=== PATIENT | male | born 1955 | race African-American/Black ===

== ENCOUNTER 2016-07-23 13:50 | Outpatient (CLI) | payer MEDICARE, MEDICAID | END 2016-07-23 13:51 | disposition home or self-care (01) | DX: N39.0 Urinary tract infection, site not specified (principal) ==

== ENCOUNTER 2016-08-06 15:17 | Inpatient (IN) | payer MEDICARE, MEDICAID ==
[2016-08-06] MEDS ORDERED: ALBUTEROL NEB 2.5 MG/3 ML INH STA (16:17)
[2016-08-06] MEDS ORDERED: ALBUTEROL NEB 2.5 MG/3 ML INH ONE (16:35)
[2016-08-06] MEDS ORDERED: cefTRIAXone 1 GM in SODIUM CHLORIDE 0.9% MINIBAG 100 ML IV STA (17:52)
[2016-08-06] MEDS ORDERED: AZITHROMYCIN INJ 500 MG in SODIUM CHLORIDE 0.9% 250 ML IV STA (17:52)
[2016-08-06] MEDS ORDERED: cefTRIAXone 1 GM VIAL ONE (18:38)
[2016-08-06] MEDS ORDERED: SODIUM CHLORIDE FLUSH 0.9% 10 ML SYRINGE IVP PRN (18:50)
[2016-08-06] MEDS ORDERED: ACETAMINOPHEN 325 MG TABLET PO PRN (18:50)
[2016-08-06] MEDS ORDERED: ONDANSETRON 4 MG/2 ML VIAL IVP PRN (18:50)
[2016-08-06] MEDS ORDERED: LORazepam 2 MG/ML SYRINGE IVP STA (19:17)
[2016-08-06] MEDS ORDERED: LORazepam 2 MG/ML SYRINGE ONE (19:21)
[2016-08-06] MEDS ORDERED: SODIUM CHLORIDE 0.9% MINIBAG 100 ML IV ONE (19:26)
[2016-08-06] MEDS ORDERED: NAPROXEN 250 MG TABLET PO PRN (20:07)
[2016-08-06] MEDS ORDERED: MAG HYDROX/AL HYDROX/SIMETH 30 ML UDC PO PRN (20:07)
[2016-08-06] MEDS ORDERED: LORazepam 2 MG/ML SYRINGE IVP PRN (20:07)
[2016-08-06] MEDS ORDERED: oxyCOD/ACETAMIN 5 MG/325 MG TABLET PO PRN (20:07)
[2016-08-06] MEDS ORDERED: guaiFENesin 600 MG TABLET PO PRN (20:07)
[2016-08-06] MEDS ORDERED: LORATADINE 10 MG TABLET PO PRN (20:07)
[2016-08-06] MEDS ORDERED: POLYETHYLENE GLYCOL 3350 17 GM PACKET PO SCH (21:00)
[2016-08-06] MEDS ORDERED: ALBUTEROL NEB 2.5 MG/3 ML INH PRN (21:44)
[2016-08-06] MEDS: SODIUM CHLORIDE FLUSH 0.9% 10 ML SYRINGE IVP SCH (22:01)
[2016-08-06] MEDS: NICOTINE 14 MG PATCH TOP SCH (22:01)
[2016-08-07] MEDS: FLUoxetine 10 MG CAPSULE PO SCH (06:54)
[2016-08-07] MEDS: TAMSULOSIN 0.4 MG CAPSULE PO SCH (06:54)
[2016-08-07] MEDS: PHENYTOIN ER 100 MG CAPSULE PO SCH ×2 (06:54→18:02)
[2016-08-07] MEDS: DIVALPROEX DR 250 MG TABLET PO SCH ×2 (06:58→18:03)
[2016-08-07] MEDS: SACCHAROMYCES BOULARDII 250 MG CAPSULE PO SCH ×2 (08:59→18:02)
[2016-08-07] MEDS: NICOTINE 14 MG PATCH TOP SCH (09:00)
[2016-08-07] MEDS ORDERED: NON FORMULARY MED (Amlodipine Besylate [Amlodipine Besylate] 10 MG) PO SCH (09:00)
[2016-08-07] MEDS: ASPIRIN EC 81 MG TABLET PO SCH (09:00)
[2016-08-07] MEDS: cefTRIAXone 2 GM in SODIUM CHLORIDE 0.9% MINIBAG 100 ML IV SCH (09:00)
[2016-08-07] MEDS: POLYETHYLENE GLYCOL 3350 17 GM PACKET PO SCH (10:17)
[2016-08-07] MEDS: SODIUM CHLORIDE FLUSH 0.9% 10 ML SYRINGE IVP SCH ×3 (14:20→21:40)
[2016-08-07] MEDS ORDERED: ATENOLOL 25 MG TABLET PO SCH (18:00)
[2016-08-07] MEDS: AZITHROMYCIN INJ 500 MG in SODIUM CHLORIDE 0.9% 250 ML IV SCH (18:01)
[2016-08-07] MEDS: OLANZapine ODT 5 MG TABLET TL SCH (18:02)
[2016-08-07] MEDS: MULTIVITAMIN TABLET PO SCH (18:02)
[2016-08-07] MEDS: ATENOLOL 25 MG TABLET PO SCH (18:10)
[2016-08-08] MEDS: PHENYTOIN ER 100 MG CAPSULE PO SCH ×2 (05:41→18:24)
[2016-08-08] MEDS: FLUoxetine 10 MG CAPSULE PO SCH (05:41)
[2016-08-08] MEDS: TAMSULOSIN 0.4 MG CAPSULE PO SCH (05:41)
[2016-08-08] MEDS: DIVALPROEX DR 250 MG TABLET PO SCH ×2 (05:42→18:24)
[2016-08-08] MEDS ORDERED: DIVALPROEX DR 125 MG TABLET PO ONE (05:42)
[2016-08-08] MEDS: SODIUM CHLORIDE FLUSH 0.9% 10 ML SYRINGE IVP SCH ×3 (06:53→20:59)
[2016-08-08] MEDS: SENNA 8.6 MG TABLET PO SCH (09:13)
[2016-08-08] MEDS: SACCHAROMYCES BOULARDII 250 MG CAPSULE PO SCH ×2 (09:14→16:33)
[2016-08-08] MEDS: ASPIRIN EC 81 MG TABLET PO SCH (09:14)
[2016-08-08] MEDS: NICOTINE 14 MG PATCH TOP SCH (09:14)
[2016-08-08] MEDS: POLYETHYLENE GLYCOL 3350 17 GM PACKET PO SCH (09:14)
[2016-08-08] MEDS: DOCUSATE SODIUM 250 MG CAPSULE PO SCH (09:14)
[2016-08-08] MEDS: cefTRIAXone 2 GM in SODIUM CHLORIDE 0.9% MINIBAG 100 ML IV SCH (09:15)
[2016-08-08] MEDS ORDERED: MAGNESIUM HYDROXIDE 2,400 MG/30 ML UDC PO ONE (16:00)
[2016-08-08] MEDS: OLANZapine ODT 5 MG TABLET TL SCH (18:24)
[2016-08-08] MEDS: MULTIVITAMIN TABLET PO SCH (18:25)
[2016-08-08] MEDS: AZITHROMYCIN INJ 500 MG in SODIUM CHLORIDE 0.9% 250 ML IV SCH (18:25)
[2016-08-08] MEDS: ATENOLOL 25 MG TABLET PO SCH (18:28)
[2016-08-09] MEDS: FLUoxetine 10 MG CAPSULE PO SCH (06:10)
[2016-08-09] MEDS: TAMSULOSIN 0.4 MG CAPSULE PO SCH (06:10)
[2016-08-09] MEDS: PHENYTOIN ER 100 MG CAPSULE PO SCH (06:11)
[2016-08-09] MEDS: SODIUM CHLORIDE FLUSH 0.9% 10 ML SYRINGE IVP SCH (06:11)
[2016-08-09] MEDS: DIVALPROEX DR 250 MG TABLET PO SCH (06:11)
[2016-08-09] MEDS: POLYETHYLENE GLYCOL 3350 17 GM PACKET PO SCH (09:54)
[2016-08-09] MEDS: DOCUSATE SODIUM 250 MG CAPSULE PO SCH (09:54)
[2016-08-09] MEDS: cefTRIAXone 2 GM in SODIUM CHLORIDE 0.9% MINIBAG 100 ML IV SCH (09:54)
[2016-08-09] MEDS: NICOTINE 14 MG PATCH TOP SCH (09:54)
[2016-08-09] MEDS: SACCHAROMYCES BOULARDII 250 MG CAPSULE PO SCH (09:54)
[2016-08-09] MEDS: ASPIRIN EC 81 MG TABLET PO SCH (09:54)
[2016-08-09] MEDS: SENNA 8.6 MG TABLET PO SCH (10:02)
== END 2016-08-09 13:45 | disposition home or self-care (01) | DRG 193 ==
DX: J18.9 Pneumonia, unspecified organism (principal); R09.02 Hypoxemia; J45.909 Unspecified asthma, uncomplicated; J96.01 Acute respiratory failure with hypoxia; J45.901 Unspecified asthma with (acute) exacerbation; F31.9 Bipolar disorder, unspecified; F20.9 Schizophrenia, unspecified; F41.9 Anxiety disorder, unspecified; Z87.820 Personal history of traumatic brain injury; F20.1 Disorganized schizophrenia; F17.200 Nicotine dependence, unspecified, uncomplicated; G40.909 Epilepsy, unspecified, not intractable, without status epilepticus; I10 Essential (primary) hypertension; F07.81 Postconcussional syndrome; F41.8 Other specified anxiety disorders; Z72.0 Tobacco use; Z79.82 Long term (current) use of aspirin

== ENCOUNTER 2016-11-06 08:00 | Outpatient (CLI) | payer MEDICARE, MEDICAID | END 2016-11-06 23:59 | disposition home or self-care (01) | DX: K52.9 Noninfective gastroenteritis and colitis, unspecified (principal) ==

== ENCOUNTER 2017-04-27 10:24 | Inpatient (IN) | payer MEDICARE, MEDICAID ==
[2017-04-27 11:38] LABS: BASOPHILS # (AUTO) 0.1 10^3/uL (0.0-0.1); BASOPHILS % (AUTO) 0.5 %; HGB - HEMOGLOBIN 16.1 g/dL (14.0-18.0); LYMPHOCYTES # (AUTO) 3.6 10^3/uL (1.5-3.5); LYMPHOCYTES % (AUTO) 25.2 %; MEAN CORPUSCULAR HEMOGLOBIN 32.4 pg (27.0-31.0); MEAN CORPUSCULAR HGB CONC 33.6 g/dL (32.0-36.0); MEAN CORPUSCULAR VOLUME 96.4 fL (80.0-94.0); MEAN PLATELET VOLUME 9.1 fL (7.4-11.4); MONOCYTES # (AUTO) 1.6 10^3/uL (0.0-1.0); MONOCYTES % (AUTO) 11.1 %; NEUTROPHILS % (AUTO) 63.2 %; NUCLEATED RED BLOOD CELLS AUTO 0.1 /100WBC; RED BLOOD COUNT 4.97 10^6/uL (4.70-6.10); RED CELL DISTRIBUTION WIDTH 16.3 % (12.0-15.0); UNCORRECTED WHITE BLOOD COUNT 14.2 x10^3/uL; WHITE BLOOD COUNT 14.2 x10^3/uL (4.8-10.8)
--- NOTE | 2017-04-27 12:00 | ED Physician Documentation ---
PD HPI NVD - Stated complaint Stated Complaint: VOMITING - Chief complaint Chief Complaint: Abd Pain - History obtained from History obtained from: Patient - History of Present Illness Timing - duration: Days (several days) Associated symptoms: Abdominal pain (upper) Contributing factors: Other (lives in assisted living/care home and meds taken care of by [facility]. Patient does not drink alcohol.). No: Sick contact, Bad food, Travel, Recent antibiotics Improved by: Laying still. No: Eating, Vomiting Worsened by: Eating, Position, Palpation. No: Breathing Similar symptoms before: Has not had sx before Recently seen: Not recently seen Review of Systems Constitutional: denies: Fever, Myalgias Eyes: reports: Loss of vision (chronic) Nose: denies: Rhinorrhea / runny nose, Congestion Throat: denies: Sore throat Cardiac: reports: Pedal edema (mild chronic). denies: Chest pain / pressure, Palpitations, Calf pain Respiratory: denies: Cough GI: reports: Abdominal Pain (upper abd), Nausea, Vomiting (few times), Diarrhea : denies: Dysuria, Frequency Skin: denies: Rash Musculoskeletal: denies: Neck pain, Back pain Neurologic: reports: Generalized weakness. denies: Focal weakness, Numbness, Near syncope, Altered mental status, Headache Endocrine: denies: Weight loss, Easy bruising / bleeding Immunocompromised: denies: Immunocompromised PD PAST MEDICAL HISTORY - Past Medical History Past Medical History: Yes Cardiovascular: Hypertension Respiratory: Asthma Neuro: Seizure disorder Endocrine/Autoimmune: Other HEENT: Chronic vision loss Psych: Depression, Anxiety, Bipolar disorder, Schizophrenia Musculoskeletal: Osteoarthritis - Past Surgical History Past Surgical History: Yes General: Colonoscopy HEENT: Cataracts - Present Medications Home Medications: Ambulatory Orders Medication Instructions Recorded Confirmed Amlodipine Besylate 10 mg PO 0600 02/21/14 04/27/17 Atenolol 25 mg PO 1800 02/21/14 04/27/17 FLUoxetine [PROzac] 20 mg PO 0600 02/21/14 04/27/17 OLANZapine [ZyPREXA] 15 mg PO 1800 02/21/14 04/27/17 Alum-Mag Hydroxide [Mylanta] 30 ml PO Q4H PRN 05/22/16 04/27/17 Guaifenesin [Mucinex] 600 mg PO BID PRN 05/22/16 04/27/17 Loperamide [Imodium] 2 mg PO QID PRN 05/22/16 04/27/17 Multivitamin [Multiple Vitamins] 1 tab PO 1800 05/22/16 04/27/17 Tamsulosin [Flomax] 0.4 mg PO 0600 05/22/16 04/27/17 Divalproex [Arianna Bolton] 1,750 mg PO 1800 06/04/16 04/27/17 Divalproex [Arianna Bolton] 2,000 mg PO 0600 06/04/16 04/27/17 Loratadine [Claritin] 10 mg PO DAILY PRN 06/04/16 04/27/17 Acetaminophen 1 tab PO BID PRN 07/08/16 04/27/17 Aspirin [Aspir-Low] 81 mg PO DAILY 07/08/16 04/27/17 Phenytoin [Dilantin] 100 mg PO 1800 07/08/16 04/27/17 Polyethylene Glycol 3350 [Miralax] 17 gm PO DAILY PRN 07/08/16 04/27/17 Phenytoin [Dilantin] 200 mg PO 0600 08/06/16 04/27/17 - Allergies Allergies/Adverse Reactions: Allergies Allergy/AdvReac Type Severity Reaction Status Date / Time No Known Drug Allergies Allergy Verified 04/27/17 12:17 - Living Situation Living Situation: reports: Alone Living Arrangement: reports: Assisted living - Social History Does the pt smoke?: Yes Smoking Status: Current every day smoker Does the pt drink ETOH?: No Does the pt have substance abuse?: No - Family History Family history: reports: Non contributory - POLST Patient has POLST: No PD ED PE NORMAL - Vitals Vital signs reviewed: Yes - General General: Alert and oriented X 3, Well developed/nourished - HEENT HEENT: Ears normal, Pharynx benign, 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 No: PERRL - Neck Neck: Supple, no meningeal sign, No adenopathy - Cardiac Cardiac: RRR, No murmur - Respiratory Respiratory: No respiratory distress, Clear bilaterally - Abdomen Abdomen: Normal bowel sounds, Soft, No organomegaly, Other (mildly distended with tenderness upper abdomen/epigastric in particular. Increased bowel sounds. ) - Male Male : Deferred - Rectal Rectal: Deferred - Back Back: No CVA TTP - Derm Derm: Normal color, Warm and dry - Extremities Extremities: No deformity, No tenderness to palpate, Other (1+ edema in both legs without tenderness. ) - Neuro Neuro: Alert and oriented X 3, No motor deficit, Normal speech Results - Vitals Vitals: Vital Signs - 24 hr 04/27/17 10:35 Temperature 36.4 C L Heart Rate 120 H Respiratory 16 Rate Blood Pressure 150/51 H O2 Saturation 97 Oxygen O2 Source [With Activity] Room air O2 Source [Without Activity] Room air O2 Source Room air - Labs Labs: Laboratory Tests 04/27/17 04/27/17 04/27/17 10:48 11:26 11:26 WBC 14.2 H RBC 4.97 Hgb 16.1 Hct 48.0 MCV 96.4 H MCH 32.4 H MCHC 33.6 RDW 16.3 H Plt Count 167 MPV 9.1 Neut # 9.0 H Lymph # 3.6 H [place] # 1.6 H Eos # 0.0 Baso # 0.1 Absolute Nucleated RBC 0.01 Nucleated RBC % 0.1 Sodium 135 Potassium 4.2 Chloride 101 Carbon Dioxide 23 Anion Gap 11.0 BUN 25 H Creatinine 1.3 H Estimated GFR (MDRD) 68 L Glucose 178 H Calcium 9.0 Magnesium Total Bilirubin 0.7 AST 40 ALT 24 Alkaline Phosphatase 83 Total Protein 8.4 H Albumin 3.9 Globulin 4.5 H Albumin/Globulin Ratio 0.9 L Lipase 720 H Urine Color DARK YELLOW Urine Clarity CLEAR Urine pH 6.0 Ur Specific [place] 1.015 Urine Protein TRACE Urine Glucose (UA) NEGATIVE Urine Ketones NEGATIVE Urine Occult Blood NEGATIVE Urine Nitrite NEGATIVE Urine Bilirubin NEGATIVE Urine Urobilinogen 0.2 (NORMAL) Ur Leukocyte Esterase NEGATIVE Ur Microscopic Review NOT INDICATED Urine Culture Comments NOT INDICATED Last Dose Date Last Dose Time Phenytoin Valproic Acid 04/27/17 11:26 WBC RBC Hgb Hct MCV MCH MCHC RDW Plt Count MPV Neut # Lymph # [place] # Eos # Baso # Absolute Nucleated RBC Nucleated RBC % Sodium Potassium Chloride Carbon Dioxide Anion Gap BUN Creatinine Estimated GFR (MDRD) Glucose Calcium Magnesium 2.5 Total Bilirubin AST ALT Alkaline Phosphatase Total Protein Albumin Globulin Albumin/Globulin Ratio Lipase Urine Color Urine Clarity Urine pH Ur Specific [place] Urine Protein Urine Glucose (UA) Urine Ketones Urine Occult Blood Urine Nitrite Urine Bilirubin Urine Urobilinogen Ur Leukocyte Esterase Ur Microscopic Review Urine Culture Comments Last Dose Date UNK Last Dose Time UNK Phenytoin 7.5 Valproic Acid 125.8 - Rads (name of study) abd/pelvis CT Radiology: Prelim report reviewed (pancreatitis with large pseudocyst 4.8 cm. normal gallbladder), EMP read contemporaneously PD MEDICAL DECISION MAKING - ED course Complexity details: reviewed results (Depakote level is elevated. Dilantin level is okay. Could contribute to the nausea. Has elevated Lipase and has pseudocyst, no alcohol use and GB looks okay. Presume med related and Depakote does have pancreatitis as listed side effect. ), considered differential, d/w patient Departure - Departure Disposition: [facility] DC/Xfer Clinical Impression: Seizure disorder Pancreatitis Qualifiers: Chronicity: acute Pancreatitis type: drug induced Acute pancreatitis complication: unspecified Qualified Code(s): K85.30 - Drug induced acute pancreatitis without necrosis or infection Abdominal pain Qualifiers: Abdominal location: upper abdomen, unspecified Qualified Code(s): R10.10 - Upper abdominal pain, unspecified Vomiting Qualifiers: Vomiting type: unspecified Vomiting Intractability: non-intractable Nausea presence: with nausea Qualified Code(s): R11.2 - Nausea with vomiting, unspecified Condition: Stable Record reviewed to determine appropriate education?: Yes Discharge Date/Time: 04/27/17 15:20
[2017-04-27] MEDS ORDERED: SODIUM CHLORIDE 0.9% 1,000 ML IV ONE ×2 (12:12→14:20)
[2017-04-27] MEDS ORDERED: ONDANSETRON 4 MG/2 ML VIAL IVP STA (12:12)
[2017-04-27] MEDS ORDERED: MORPHINE 10 MG/ML VIAL IVP STA (12:14)
[2017-04-27 12:19] LABS: ALBUMIN/GLOBULIN RATIO 0.9 (1.0-2.2); BILIRUBIN,TOTAL 0.7 mg/dL (0.2-1.0); CREATININE 1.3 mg/dL (0.6-1.2); POTASSIUM 4.2 mmol/L (3.5-5.0); TOTAL PROTEIN 8.4 g/dL (6.7-8.2)
[2017-04-27 12:32] LABS: MAGNESIUM 2.5 mg/dL (1.7-2.8)
[2017-04-27] MEDS ORDERED: MORPHINE 10 MG/ML VIAL ONE (12:34)
[2017-04-27] MEDS ORDERED: ONDANSETRON 4 MG/2 ML VIAL ONE (12:34)
[2017-04-27] MEDS ORDERED: SODIUM CHLORIDE FLUSH 0.9% 10 ML SYRINGE IVP ONE (12:34)
[2017-04-27] MEDS ORDERED: IOPAMIDOL-300 100 ML VIAL ONE (13:10)
[2017-04-27] MEDS ORDERED: IOPAMIDOL-300 100 ML VIAL IVP ONE (13:20)
--- NOTE | 2017-04-27 13:49 | CT Preliminary Report ---
Exam: CT Abdomen/Pelvis W/ IMPRESSION: 1. Findings suspicious for acute pancreatitis. 2. 4.8 cm round pancreatic head lesion is most suspicious for a intrapancreatic pseudocyst or complex cyst. Follow-up recommended to exclude cystic neoplasm. 3. Small intraperitoneal free fluid. 4. Increased small bowel gas consistent with ileus. 5. Dependent pulmonary atelectasis. [facility] SITE ID: [id number]
--- NOTE | 2017-04-27 13:52 | CT Report ---
EXAM: CT ABDOMEN AND PELVIS EXAM DATE: 04/27/2017 01:30 PM. CLINICAL HISTORY: Abd bloating/pain and vomiting. COMPARISONS: None. TECHNIQUE: Routine helical CT imaging was performed through the abdomen and pelvis. IV contrast: 100 cc Isovue-300 IV. Enteric contrast: No. Reconstructions: Coronal and sagittal. In accordance with CT protocol optimization, one or more of the following dose reduction techniques w ere utilized for this exam: automated exposure control, adjustment of mA and/or KV based on patient s ize, or use of iterative reconstructive technique. FINDINGS: Lung Bases: There is patchy airspace density with volume loss in the right greater than left lower lo be. No pleural effusion. Liver: Normal. No masses. Gallbladder/Bile Ducts: Unremarkable. Spleen: Normal. Pancreas: The pancreas appears diffusely edematous. There is a hypodense circumscribed lesion located within the inferior pancreatic head measuring 4.5 x 4.7 x 4.8 cm and density of 19 Hounsfield units. There is peripancreatic stranding and edema. Adrenal Glands: Normal. Kidneys: There is a small hypodense lesion in the midpole cortex left kidney measuring 1 cm consisten t with a cyst. No hydronephrosis. Peritoneal Cavity/Bowel: There is a small volume of free fluid in the right upper quadrant of the abd omen. There is generalized increased density of mesenteric fat in the upper and lower abdomen. No miguel e air. No high-grade mechanical bowel obstruction. There is increased small bowel gas. Pelvic Organs: Normal. The bladder and visualized pelvic organs are within normal limits. Vasculature: No aneurysms or other significant abnormality. Bones: There are findings of left hip arthroplasty. Other: None. IMPRESSION: 1. Findings suspicious for acute pancreatitis. 2. 4.8 cm round pancreatic head lesion is most suspicious for a intrapancreatic pseudocyst or complex cyst. Follow-up recommended to exclude cystic neoplasm. 3. Small intraperitoneal free fluid. 4. Increased small bowel gas consistent with ileus. 5. Dependent pulmonary atelectasis. [facility] Referring Provider Line: [phone] SITE ID: [id number]
[2017-04-27] MEDS ORDERED: HYDROmorphone 1 MG/ML CARPUJECT IVP STA (14:20)
[2017-04-27] MEDS ORDERED: HYDROmorphone 1 MG/ML AMP IVP PRN (14:31)
[2017-04-27] MEDS ORDERED: HYDROmorphone 1 MG/ML SYRINGE ONE (14:38)
[2017-04-27] MEDS ORDERED: SODIUM CHLORIDE 0.9% 1,000 ML IV SCH ×2 (15:00→19:48)
[2017-04-27 16:36] LABS: BILIRUBIN,URINE NEGATIVE (NEGATIVE)
[2017-04-27 16:37] LABS: UA CHARGE (STRIP ONLY) YES; UR CULTURE IF IND NOT INDICATED
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
[2017-04-27] MEDS: OLANZapine ODT 5 MG TABLET TL SCH (19:13)
[2017-04-27] MEDS: PHENYTOIN ER 100 MG CAPSULE PO SCH (19:14)
[2017-04-27] MEDS: DIVALPROEX DR 250 MG TABLET PO SCH (19:14)
[2017-04-27] MEDS: SODIUM CHLORIDE FLUSH 0.9% 10 ML SYRINGE IVP SCH (23:06)
[2017-04-27] MEDS: NICOTINE 14 MG PATCH TOP SCH (23:06)
[2017-04-28] MEDS ORDERED: cefTRIAXone 1 GM in SODIUM CHLORIDE 0.9% MINIBAG 100 ML IV SCH (01:00)
[2017-04-28 01:07] LABS: HCT - HEMATOCRIT 38.5 % (42.0-52.0); HGB - HEMOGLOBIN 12.9 g/dL (14.0-18.0); MEAN CORPUSCULAR HEMOGLOBIN 31.9 pg (27.0-31.0); MEAN CORPUSCULAR HGB CONC 33.6 g/dL (32.0-36.0); MEAN PLATELET VOLUME 9.2 fL (7.4-11.4); RED BLOOD COUNT 4.05 10^6/uL (4.70-6.10); RED CELL DISTRIBUTION WIDTH 15.6 % (12.0-15.0); WHITE BLOOD COUNT 17.9 x10^3/uL (4.8-10.8)
[2017-04-28] MEDS: ACETAMINOPHEN 325 MG TABLET PO PRN ×2 (01:14→16:15)
[2017-04-28] MEDS: SODIUM CHLORIDE 0.9% 1,000 ML IV SCH ×3 (01:15→19:02)
[2017-04-28 01:21] LABS: ALBUMIN/GLOBULIN RATIO 0.8 (1.0-2.2); BUN - BLOOD UREA NITROGEN 18 mg/dL (6-20); CALCIUM 7.5 mg/dL (8.5-10.3); CARBON DIOXIDE - CO2 22 mmol/L (21-32); CHLORIDE 107 mmol/L (101-111); CHOL/HDL RATIO 2.8 (<5.0); CHOLESTEROL 119 mg/dL; CREATININE 0.7 mg/dL (0.6-1.2); GFR - MDRD 139 (>89); GLUCOSE 160 mg/dL (70-100); HDL CHOLESTEROL 43 mg/dL; LDL/HDL RATIO 1.5 (<3.6); LIPASE 154 U/L (22-51); POTASSIUM 3.8 mmol/L (3.5-5.0); SODIUM 137 mmol/L (135-145); TRIGLYCERIDES 53 mg/dL; VLDL CHOLESTEROL 11 mg/dL
[2017-04-28 01:25] LABS: AMYLASE 586 U/L (28-100)
[2017-04-28] MEDS: SODIUM CHLORIDE FLUSH 0.9% 10 ML SYRINGE IVP PRN ×2 (01:29→12:47)
[2017-04-28] MEDS: FLUoxetine 10 MG CAPSULE PO SCH (05:24)
[2017-04-28] MEDS: SODIUM CHLORIDE FLUSH 0.9% 10 ML SYRINGE IVP SCH ×3 (05:29→19:07)
[2017-04-28] MEDS ORDERED: CALCIUM GLUCONATE 1,000 MG in SODIUM CHLORIDE 0.9% 50 ML IV ONE (07:35)
[2017-04-28] MEDS ORDERED: LOPERAMIDE 2 MG CAPSULE PO PRN (08:35)
[2017-04-28] MEDS ORDERED: guaiFENesin 600 MG TABLET PO PRN (08:35)
[2017-04-28] MEDS ORDERED: MAG HYDROX/AL HYDROX/SIMETH 30 ML UDC PO PRN (08:35)
[2017-04-28] MEDS ORDERED: LORATADINE 10 MG TABLET PO PRN (08:35)
[2017-04-28] MEDS ORDERED: cloNIDine 0.1 MG TABLET PO PRN (08:38)
[2017-04-28] MEDS: POLYETHYLENE GLYCOL 3350 17 GM PACKET PO SCH (09:09)
[2017-04-28] MEDS ORDERED: DIVALPROEX ER 250 MG TABLET PO ONE (09:15)
[2017-04-28] MEDS ORDERED: cloNIDine 0.1 MG TABLET ONE (09:16)
[2017-04-28] MEDS: DIVALPROEX DR 250 MG TABLET PO SCH ×3 (09:27→18:55)
[2017-04-28] MEDS: ENOXAPARIN 40 MG/0.4 ML SYRINGE SUBQ SCH (09:28)
[2017-04-28] MEDS: PHENYTOIN ER 100 MG CAPSULE PO SCH ×3 (09:28→19:01)
[2017-04-28] MEDS: ASPIRIN EC 81 MG TABLET PO SCH (09:28)
[2017-04-28] MEDS: NICOTINE 14 MG PATCH TOP SCH (09:29)
[2017-04-28] MEDS: PIPERACILLIN/TAZOBACTAM 3.375 GM in SODIUM CHLORIDE 0.9% MINIBAG 100 ML IV SCH ×3 (10:39→19:06)
[2017-04-28] MEDS ORDERED: hydrALAZINE INJ 20 MG/ML VIAL IVP PRN (12:43)
--- NOTE | 2017-04-28 12:47 | PROVIDER PROGRESS NOTE ---
Subjective - Prog Note Date Prog Note Date: 04/28/17 - Subjective Pt reports feeling: Improved Subjective: pt report feeling better, and comfortable sleeping at the bed, denies chest pain , other pain. Current Medications - Current Medications Current Medications: Active Medications Acetaminophen (Tylenol) 650 mg PO Q4HR PRN PRN Reason: Pain or Fever > 38C (100.4F) Last Admin: 04/28/17 01:14 Dose: 650 mg Al Hydroxide/Mg Hydroxide (Mylanta Plus) 30 ml PO Q4H PRN PRN Reason: NEEDED PER PROVIDER ORDERS Amlodipine Besylate (Norvasc) 10 mg PO 0600 [facility] Aspirin (Ecotrin) 81 mg PO DAILY [facility] Last Admin: 04/28/17 09:28 Dose: 81 mg Atenolol (Tenormin) 25 mg PO 1800 [facility] Clonidine HCl (Catapres) 0.1 mg PO BID PRN PRN Reason: Hypertensive Emergency Last Admin: 04/28/17 09:28 Dose: 0.1 mg Divalproex Sodium (Depakote Dr) 1,750 mg PO 1800 [facility] Last Admin: 04/27/17 19:14 Dose: 1,750 mg Divalproex Sodium (Depakote Dr) 2,000 mg PO DAILY [facility] Last Admin: 04/28/17 10:39 Dose: Not Given Enoxaparin Sodium (Lovenox) 40 mg SUBQ DAILY [facility] Last Admin: 04/28/17 09:28 Dose: 40 mg Fluoxetine HCl (Prozac) 20 mg PO 0600 [facility] Last Admin: 04/28/17 05:24 Dose: 20 mg Guaifenesin (Mucinex) 600 mg PO BID PRN PRN Reason: CONGESTION Hydromorphone HCl (Dilaudid) 0.5 mg IVP Q2HR PRN PRN Reason: Pain 8 to 10 Last Admin: 04/28/17 01:15 Dose: 0.5 mg Sodium Chloride (Normal Saline 0.9%) 1,000 mls @ 150 mls/hr IV .Q6H40M [facility] Last Infusion: 04/28/17 11:32 Dose: 0 mls/hr Piperacillin Sod/Tazobactam (Sod 3.375 gm/ Sodium Chloride) 100 mls @ 200 mls/ hr IV Q6H [facility] Last Infusion: 04/28/17 11:12 Dose: Infused Loperamide HCl (Imodium) 2 mg PO QID PRN PRN Reason: Diarrhea Loratadine (Claritin) 10 mg PO DAILY PRN PRN Reason: Allergy Symptoms Multivitamins (Theragran) 1 tab PO DAILYWM [facility] Nicotine (Nicoderm) 1 patch TOP DAILY [facility] Last Admin: 04/28/17 09:29 Dose: 1 patch Olanzapine (Zyprexa Odt) 15 mg TL 1800 [facility] Last Admin: 04/27/17 19:13 Dose: 15 mg Phenytoin Sodium (Dilantin) 200 mg PO DAILY [facility] Last Admin: 04/28/17 10:39 Dose: Not Given Phenytoin Sodium (Dilantin) 100 mg PO 1800 [facility] Last Admin: 04/27/17 19:14 Dose: 100 mg Polyethylene Glycol (Miralax) 17 gm PO DAILY [facility] Last Admin: 04/28/17 09:09 Dose: Not Given Sodium Chloride (Normal Saline Flush 0.9%) 10 ml IVP PRN PRN PRN Reason: NEEDED PER PROVIDER ORDERS Last Admin: 04/28/17 01:29 Dose: 10 ml Sodium Chloride (Normal Saline Flush 0.9%) 10 ml IVP Q8HR [facility] Last Admin: 04/28/17 07:39 Dose: Not Given Tamsulosin HCl (Flomax) 0.4 mg PO 0600 [facility] Amlodipine Besylate 10 mg PO 0600 02/21/14 Atenolol 25 mg PO 1800 02/21/14 FLUoxetine [PROzac] 20 mg PO 0600 02/21/14 OLANZapine [ZyPREXA] 15 mg PO 1800 02/21/14 Alum-Mag Hydroxide [Mylanta] 30 ml PO Q4H PRN 05/22/16 Guaifenesin [Mucinex] 600 mg PO BID PRN 05/22/16 Loperamide [Imodium] 2 mg PO QID PRN 05/22/16 Multivitamin [Multiple Vitamins] 1 tab PO 1800 05/22/16 Tamsulosin [Flomax] 0.4 mg PO 0600 05/22/16 Divalproex [Arianna Bolton] 1,750 mg PO 1800 06/04/16 Divalproex [Arianna Bolton] 2,000 mg PO 0600 06/04/16 Loratadine [Claritin] 10 mg PO DAILY PRN 06/04/16 Acetaminophen 1 tab PO BID PRN 07/08/16 Aspirin [Aspir-Low] 81 mg PO DAILY 07/08/16 Phenytoin [Dilantin] 100 mg PO 1800 07/08/16 Polyethylene Glycol 3350 [Miralax] 17 gm PO DAILY PRN 07/08/16 Phenytoin [Dilantin] 200 mg PO 0600 08/06/16 Objective - Vital Signs/Intake & Output Reviewed Vital Signs: Yes Vital Signs: Vital Signs x48h Temp Pulse Resp BP BP Pulse Ox 04/28/17 08:54 176/106 H 04/28/17 07:56 37.1 C 121 H 20 187/114 H 95 04/28/17 05:21 36.9 C 117 H 18 164/88 H 97 Intake & Output: Intake & Output 04/25/17 04/26/17 04/27/17 04/28/17 23:59 23:59 23:59 23:59 Intake Total 2295.334 2462.5 Output Total 400 Balance 8634.101 9628.5 - Objective General Appearance: positive: No acute distress, Alert. negative: Lethargic Eyes Bilateral: positive: Normal inspection, PERRL, EOMI, No lid inflammation, Conjunctivae nml ENT: positive: ENT inspection nml, Pharynx nml, No signs of dehydration. negative: Purulent nasal drainage, Pharyngeal erythema, Oral lesions Neck: positive: Nml inspection, Thyroid nml, Trachea midline. negative: Thyromegaly, Lymphadenopathy (R), Lymphadenopathy (L), Stiff neck, Carotid bruit , Swelling/bruising, Tracheal deviation Respiratory: positive: Chest non-tender, No respiratory distress, Breath sounds nml. negative: Wheezes, Rales, Rhonchi Cardiovascular: positive: Regular rate & rhythm, No murmur, No gallop, Tachycardia. negative: Irregularly irregular, Extrasystoles, Bradycardia, Systolic murmur, Diastolic murmur Peripheral Pulses: 2+ Radial (R), 2+ Radial (L), 2+ Dorsalis pedis (R), 2+ Dorsalis pedis (L) Abdomen: positive: Non-tender, Nml bowel sounds, No distention. negative: Tenderness, Guarding, Rebound Back: positive: Nml inspection. negative: CVA tenderness (R), CVA tenderness (L ) Skin: positive: Color nml, No rash, Warm, Dry. negative: Cyanosis, Diaphoresis , Pallor Extremities: positive: Non-tender, Full ROM, Nml appearance. negative: Pedal edema, Calf tenderness, Joint swelling, Martín's sign/cords Neurologic/Psychiatric: positive: Motor nml, Sensation nml. negative: Sensory loss, Facial droop, Slurred/abnml speech, Depressed mood/affect - Lab Results Fish Bones: 04/28/17 00:55 04/28/17 00:55 Other Labs: Lab Results x24hrs 04/28/17 04/28/17 04/28/17 Range/Units 08:02 08:02 08:02 WBC (4.8-10.8) x10^3/uL RBC (4.70-6.10) 10^6/uL Hgb (14.0-18.0) g/dL Hct (42.0-52.0) % MCV (80.0-94.0) fL MCH (27.0-31.0) pg MCHC (32.0-36.0) g/dL RDW (12.0-15.0) % Plt Count (130-450) 10^3/uL MPV (7.4-11.4) fL ESR 24 H (0-20) mm/Hr Sodium (135-145) mmol/L Potassium (3.5-5.0) mmol/L Chloride (101-111) mmol/L Carbon Dioxide (21-32) mmol/L Anion Gap (6-13) BUN (6-20) mg/dL Creatinine (0.6-1.2) mg/dL Estimated GFR (MDRD) (>89) Glucose (70-100) mg/dL Lactic Acid 1.5 (0.5-2.2) mmol/L Calcium (8.5-10.3) mg/dL Total Bilirubin (0.2-1.0) mg/dL AST (10-42) IU/L ALT (10-60) IU/L Alkaline Phosphatase (42-121) IU/L C-Reactive Protein 25.5 H (0-1.0) mg/dL Total Protein (6.7-8.2) g/dL Albumin (3.2-5.5) g/dL Globulin (2.1-4.2) g/dL Albumin/Globulin Ratio (1.0-2.2) Triglycerides ( - 149) mg/dL Cholesterol ( - 199) mg/dL LDL Cholesterol, Calc ( - 129) mg/dL VLDL Cholesterol mg/dL HDL Cholesterol (60 - ) mg/dL LDL/HDL Ratio (<3.6) Cholesterol/HDL Ratio (<5.0) Amylase (28-100) U/L Lipase (22-51) U/L Carcinoembryonic Ag ng/mL 04/28/17 04/28/17 04/28/17 Range/Units 08:02 00:55 00:55 WBC 17.9 H (4.8-10.8) x10^3/uL RBC 4.05 L (4.70-6.10) 10^6/uL Hgb 12.9 L (14.0-18.0) g/dL Hct 38.5 L (42.0-52.0) % MCV 95.0 H (80.0-94.0) fL MCH 31.9 H (27.0-31.0) pg MCHC 33.6 (32.0-36.0) g/dL RDW 15.6 H (12.0-15.0) % Plt Count 125 L (130-450) 10^3/uL MPV 9.2 (7.4-11.4) fL ESR (0-20) mm/Hr Sodium 137 (135-145) mmol/L Potassium 3.8 (3.5-5.0) mmol/L Chloride 107 (101-111) mmol/L Carbon Dioxide 22 (21-32) mmol/L Anion Gap 8.0 (6-13) BUN 18 (6-20) mg/dL Creatinine 0.7 (0.6-1.2) mg/dL Estimated GFR (MDRD) 139 (>89) Glucose 160 H (70-100) mg/dL Lactic Acid (0.5-2.2) mmol/L Calcium 7.5 L (8.5-10.3) mg/dL Total Bilirubin 1.0 (0.2-1.0) mg/dL AST 29 (10-42) IU/L ALT 18 (10-60) IU/L Alkaline Phosphatase 68 (42-121) IU/L C-Reactive Protein (0-1.0) mg/dL Total Protein 7.0 (6.7-8.2) g/dL Albumin 3.1 L (3.2-5.5) g/dL Globulin 3.9 (2.1-4.2) g/dL Albumin/Globulin Ratio 0.8 L (1.0-2.2) Triglycerides 53 ( - 149) mg/dL Cholesterol 119 ( - 199) mg/dL LDL Cholesterol, Calc 65 ( - 129) mg/dL VLDL Cholesterol 11 mg/dL HDL Cholesterol 43 L (60 - ) mg/dL LDL/HDL Ratio 1.5 (<3.6) Cholesterol/HDL Ratio 2.8 (<5.0) Amylase 586 H* (28-100) U/L Lipase 154 H (22-51) U/L Carcinoembryonic Ag 1.4 ng/mL Assessment/Plan - Problem List (1) Pancreatitis Impression: elevated Lipase and Amylase, vomiting and epigastria discomfort. continue NPO IVF hydration monitor Lipase pain control vital and tele monitor Qualifiers: Chronicity: acute Pancreatitis type: drug induced Acute pancreatitis complication: unspecified Qualified Code(s): K85.30 - Drug induced acute pancreatitis without necrosis or infection (2) Pseudocyst of pancreas Impression: CT of abd reveal significant pseudocyst. elevated WBC, spot fever on last night. add Zosyn, will check lactic acid MRCP is pending, pt's vital stable, pain is in the control, without acute distress. will consult with surgeon after MRCP done check CEA to monitor neoplasma, order Amylase to monitor Pseudocyst progress if it is in the healing process closely monitor pt, vital, tele, close monitor if infected and captured pseudocyst (3) Acute kidney injury Impression: improved after hydration, will continue hydration daily lab test monitor (4) HTN (hypertension) Impression: resume home meds add hydralazine and Clonidine PRN monitor with vital, tele (5) Disorganized schizophrenia Impression: stable, resume of home meds (6) Seizure Impression: seizure precaution test of phenytoin and valproic acid, WNL resume of home meds (7) Asthma Impression: stable, resume home meds (9) Hx of traumatic brain injury Impression: no acute injury. continue support care
--- NOTE | 2017-04-28 13:08 | MRI Preliminary Report ---
Exam: MRI MRCP W/O IMPRESSION: Probable 4.8 cm pseudocyst along inferior aspect of pancreatic head with dependent debri s. [id number] diffuse peripancreatic edema compatible with pancreatitis. [facility] SITE ID: [id number]
--- NOTE | 2017-04-28 13:46 | MRI Report ---
EXAM: MR ABDOMEN WITHOUT CONTRAST (MR CHOLANGIOPANCREATOGRAPHY) EXAM DATE: 04/28/2017 12:42 PM. CLINICAL HISTORY: Pancreatitis with phlegmon, no obvious cause so far. COMPARISON: Abdominal CT 04/27/2017 with IV contrast. TECHNIQUE: Multiplanar breath-hold T1 and T2 sequences obtained through the abdomen on an MR scanner. Dedicated 2D and 3D MRCP sequences obtained through the biliary and pancreatic ducts. No intravenous contrast given. Variable patient motion artifact, most pronounced on series 1401. FINDINGS: Lung Bases: Mild bibasilar atelectasis. Liver: The liver has normal size, morphology and signal. No evidence of mass. The intrahepatic bile d ucts appear normal. CBD: The extrahepatic ducts appear normal. The CBD is 5 mm in diameter. Gallbladder: The gallbladder is distended and appears normal with no wall thickening or stone. Pancreas: The pancreatic duct measures 2 mm in diameter and appears normal with no stone or strictur e. No pancreas divisum. Note is again made of a cystic lesion within the inferior pancreatic head measuring 4.8 cm transverse by 4.8 cm AP by 4.6 cm craniocaudal. There is dependent iso- to mildly hypointense T2 debris. This p robably communicates with the branch of the pancreatic duct on series 1501 images 57 to 65. There is diffuse peripancreatic edema compatible with pancreatitis. Spleen: The spleen appears normal. Kidneys and Adrenals: The kidneys appear normal with no mass or hydronephrosis. 1.4 cm posterior left renal cyst. The adrenals appear normal. Bowel: The small bowel and colon appear normal with no inflammation or obstruction. Small amount of free fluid. Retroperitoneum: The retroperitoneal structures appear normal with no mass or lymphadenopathy. IMPRESSION: 1. Probable 4.8 cm pseudocyst along inferior aspect of pancreatic head with dependent debris. 2. [id number] diffuse peripancreatic edema compatible with pancreatitis. [facility] Referring Provider Line: [phone] SITE ID: [id number]
--- NOTE | 2017-04-28 17:36 | XRAY Report ---
FRONTAL CHEST: 04/28/2017 CLINICAL INDICATION: Shortness of breath. COMPARISON: 12/26/2016 Frontal view of the chest demonstrates a normal cardiac silhouette. Lung volumes are low, with bibas ilar infiltrates. No definite effusion or pneumothorax is seen. IMPRESSION: LOW LUNG VOLUMES, WITH BIBASILAR INFILTRATES. JOB #: [id number] EXT JOB #:[id number]
[2017-04-28] MEDS ORDERED: SODIUM CHLORIDE 0.9% 1,000 ML IV SCH (18:24)
[2017-04-28] MEDS: ATENOLOL 25 MG TABLET PO SCH (18:55)
[2017-04-28] MEDS: OLANZapine ODT 5 MG TABLET TL SCH (18:56)
[2017-04-28] MEDS ORDERED: SODIUM CHLORIDE 0.9% 1,000 ML IV ONE (18:56)
[2017-04-29] MEDS: PIPERACILLIN/TAZOBACTAM 3.375 GM in SODIUM CHLORIDE 0.9% MINIBAG 100 ML IV SCH ×4 (01:43→19:55)
[2017-04-29] MEDS: SODIUM CHLORIDE 0.9% 1,000 ML IV SCH ×3 (01:44→13:55)
[2017-04-29] MEDS ORDERED: SODIUM CHLORIDE INHALATION 3 ML NEB INH PRN (02:32)
[2017-04-29] MEDS ORDERED: LEVALBUTEROL 1.25 MG INH SCH (02:32)
[2017-04-29] MEDS ORDERED: SODIUM CHLORIDE 0.9% 1,000 ML IV SCH (04:00)
[2017-04-29] MEDS: SODIUM CHLORIDE FLUSH 0.9% 10 ML SYRINGE IVP SCH ×3 (06:36→23:13)
[2017-04-29] MEDS: TAMSULOSIN 0.4 MG CAPSULE PO SCH (06:36)
[2017-04-29] MEDS: FLUoxetine 10 MG CAPSULE PO SCH (06:36)
[2017-04-29] MEDS: amLODIPine 5 MG TABLET PO SCH (06:36)
[2017-04-29 07:52] LABS: BASOPHILS % (AUTO) 0.2 %; HCT - HEMATOCRIT 36.7 % (42.0-52.0); HGB - HEMOGLOBIN 12.3 g/dL (14.0-18.0); LYMPHOCYTES # (AUTO) 2.5 10^3/uL (1.5-3.5); LYMPHOCYTES % (AUTO) 13.7 %; MEAN CORPUSCULAR HEMOGLOBIN 31.8 pg (27.0-31.0); MEAN CORPUSCULAR HGB CONC 33.6 g/dL (32.0-36.0); MEAN CORPUSCULAR VOLUME 94.6 fL (80.0-94.0); MEAN PLATELET VOLUME 9.4 fL (7.4-11.4); MONOCYTES # (AUTO) 1.8 10^3/uL (0.0-1.0); NEUTROPHILS # (AUTO) 13.8 10^3/uL (1.5-6.6); NEUTROPHILS % (AUTO) 76.1 %; RED BLOOD COUNT 3.87 10^6/uL (4.70-6.10); UNCORRECTED WHITE BLOOD COUNT 18.1 x10^3/uL; WHITE BLOOD COUNT 18.1 x10^3/uL (4.8-10.8)
[2017-04-29 07:59] LABS: ALBUMIN/GLOBULIN RATIO 0.7 (1.0-2.2); BILIRUBIN,TOTAL 0.8 mg/dL (0.2-1.0); CALCIUM 8.4 mg/dL (8.5-10.3); CREATININE 0.6 mg/dL (0.6-1.2); POTASSIUM 3.4 mmol/L (3.5-5.0); TOTAL PROTEIN 6.8 g/dL (6.7-8.2)
[2017-04-29] MEDS: ASPIRIN EC 81 MG TABLET PO SCH (08:03)
[2017-04-29] MEDS: PHENYTOIN ER 100 MG CAPSULE PO SCH ×2 (08:03→18:51)
[2017-04-29] MEDS: MULTIVITAMIN TABLET PO SCH (08:03)
[2017-04-29] MEDS: DIVALPROEX DR 250 MG TABLET PO SCH ×2 (08:04→18:50)
[2017-04-29] MEDS: ENOXAPARIN 40 MG/0.4 ML SYRINGE SUBQ SCH (08:06)
[2017-04-29] MEDS: POLYETHYLENE GLYCOL 3350 17 GM PACKET PO SCH (08:09)
[2017-04-29] MEDS: NICOTINE 14 MG PATCH TOP SCH (08:12)
[2017-04-29] MEDS ORDERED: VANCOMYCIN PER PHARMACY 1 GM in SODIUM CHLORIDE 0.9% 250 ML IV SCH (10:00)
[2017-04-29] MEDS ORDERED: POTASSIUM CHLOR 10 MEQ/100 ML 10 MEQ/100 ML BAG IV ONE (10:00)
[2017-04-29] MEDS ORDERED: VANCOMYCIN 2 GM/NS 500 ML 2 GM/500 ML BAG IV ONE (10:30)
--- NOTE | 2017-04-29 13:17 | Ultrasound Report ---
RIGHT UPPER QUADRANT ULTRASOUND: 04/29/2017 CLINICAL INDICATION: Vomiting, pressure, pancreatitis. TECHNIQUE: Real-time scanning was performed with apparel trimmings sales representative static images obtained. FINDINGS: The liver measures 17.3 cm. Hepatic echotexture is unremarkable. No intrahepatic biliary d ilatation or focal parenchymal lesion is seen. The common bile duct measures 7 mm, minimally prominen t for age. The gallbladder appears distended, and demonstrates a small amount of sludge within its shama men. No cholelithiasis, wall thickening, or pericholecystic fluid is seen. The right kidney measures 11.5 cm. No hydronephrosis is seen. Trace free fluid is present. The pancreatic pseudocyst is poorly visualized, due to overlying bowel gas. IMPRESSION: DISTENDED GALLBLADDER, WITH SLUDGE WITHIN THE LUMEN. NO EVIDENCE OF CHOLELITHIASIS. MINI MAL PROMINENCE OF THE COMMON BILE DUCT. JOB #: [id number] EXT JOB #:[id number]
[2017-04-29] MEDS: ACETAMINOPHEN 325 MG TABLET PO PRN ×2 (13:22→17:29)
--- NOTE | 2017-04-29 17:35 | PROVIDER PROGRESS NOTE ---
Subjective - Prog Note Date Prog Note Date: 04/29/17 - Subjective Pt reports feeling: Improved Subjective: pt state he feel better, no complaints Current Medications - Current Medications Current Medications: Active Medications Acetaminophen (Tylenol) 650 mg PO Q4HR PRN PRN Reason: Pain or Fever > 38C (100.4F) Last Admin: 04/29/17 17:29 Dose: 650 mg Al Hydroxide/Mg Hydroxide (Mylanta Plus) 30 ml PO Q4H PRN PRN Reason: NEEDED PER PROVIDER ORDERS Amlodipine Besylate (Norvasc) 10 mg PO 0600 [facility] Last Admin: 04/29/17 06:36 Dose: 10 mg Aspirin (Ecotrin) 81 mg PO DAILY [facility] Last Admin: 04/29/17 08:03 Dose: 81 mg Atenolol (Tenormin) 25 mg PO 1800 [facility] Last Admin: 04/28/17 18:55 Dose: 25 mg Clonidine HCl (Catapres) 0.1 mg PO BID PRN PRN Reason: Hypertensive Emergency Last Admin: 04/28/17 09:28 Dose: 0.1 mg Divalproex Sodium (Depakote Dr) 1,750 mg PO 1800 [facility] Last Admin: 04/28/17 18:55 Dose: 1,750 mg Divalproex Sodium (Depakote Dr) 2,000 mg PO DAILY [facility] Last Admin: 04/29/17 08:04 Dose: 2,000 mg Enoxaparin Sodium (Lovenox) 40 mg SUBQ DAILY [facility] Last Admin: 04/29/17 08:06 Dose: 40 mg Fluoxetine HCl (Prozac) 20 mg PO 0600 [facility] Last Admin: 04/29/17 06:36 Dose: 20 mg Guaifenesin (Mucinex) 600 mg PO BID PRN PRN Reason: CONGESTION Hydralazine HCl (Apresoline Inj) 10 mg IVP DAILY PRN PRN Reason: Hypertensive Emergency Hydromorphone HCl (Dilaudid) 0.5 mg IVP Q2HR PRN PRN Reason: Pain 8 to 10 Last Admin: 04/28/17 01:15 Dose: 0.5 mg Piperacillin Sod/Tazobactam (Sod 3.375 gm/ Sodium Chloride) 100 mls @ 200 mls/ hr IV Q6H [facility] Last Infusion: 04/29/17 14:24 Dose: Infused Sodium Chloride (Normal Saline 0.9%) 1,000 mls @ 125 mls/hr IV .Q8H [facility] Last Admin: 04/29/17 13:55 Dose: 125 mls/hr Vancomycin HCl 1 gm/ Sodium (Chloride) 250 mls @ 167 mls/hr IV Q12H [facility] Loperamide HCl (Imodium) 2 mg PO QID PRN PRN Reason: Diarrhea Loratadine (Claritin) 10 mg PO DAILY PRN PRN Reason: Allergy Symptoms Multivitamins (Theragran) 1 tab PO DAILYWM [facility] Last Admin: 04/29/17 08:03 Dose: 1 tab Nicotine (Nicoderm) 1 patch TOP DAILY [facility] Last Admin: 04/29/17 08:12 Dose: Not Given Olanzapine (Zyprexa Odt) 15 mg TL 1800 [facility] Last Admin: 04/28/17 18:56 Dose: 15 mg Phenytoin Sodium (Dilantin) 200 mg PO DAILY [facility] Last Admin: 04/29/17 08:03 Dose: 200 mg Phenytoin Sodium (Dilantin) 100 mg PO 1800 [facility] Last Admin: 04/28/17 19:01 Dose: 100 mg Polyethylene Glycol (Miralax) 17 gm PO DAILY [facility] Last Admin: 04/29/17 08:09 Dose: Not Given Sodium Chloride (Normal Saline Flush 0.9%) 10 ml IVP PRN PRN PRN Reason: NEEDED PER PROVIDER ORDERS Last Admin: 04/28/17 12:47 Dose: 10 ml Sodium Chloride (Normal Saline Flush 0.9%) 10 ml IVP Q8HR [facility] Last Admin: 04/29/17 13:53 Dose: 10 ml Sodium Chloride (Normal Saline) 3 ml INH PRN PRN PRN Reason: Levalbuterol treatment Last Admin: 04/29/17 02:50 Dose: 3 ml Tamsulosin HCl (Flomax) 0.4 mg PO 0600 [facility] Last Admin: 04/29/17 06:36 Dose: 0.4 mg Amlodipine Besylate 10 mg PO 0600 02/21/14 Atenolol 25 mg PO 1800 02/21/14 FLUoxetine [PROzac] 20 mg PO 0600 02/21/14 OLANZapine [ZyPREXA] 15 mg PO 1800 02/21/14 Alum-Mag Hydroxide [Mylanta] 30 ml PO Q4H PRN 05/22/16 Guaifenesin [Mucinex] 600 mg PO BID PRN 05/22/16 Loperamide [Imodium] 2 mg PO QID PRN 05/22/16 Multivitamin [Multiple Vitamins] 1 tab PO 1800 05/22/16 Tamsulosin [Flomax] 0.4 mg PO 0600 05/22/16 Divalproex [Arianna Bolton] 1,750 mg PO 1800 06/04/16 Divalproex [Arianna Bolton] 2,000 mg PO 0600 06/04/16 Loratadine [Claritin] 10 mg PO DAILY PRN 06/04/16 Acetaminophen 1 tab PO BID PRN 07/08/16 Aspirin [Aspir-Low] 81 mg PO DAILY 07/08/16 Phenytoin [Dilantin] 100 mg PO 1800 07/08/16 Polyethylene Glycol 3350 [Miralax] 17 gm PO DAILY PRN 07/08/16 Phenytoin [Dilantin] 200 mg PO 0600 08/06/16 Objective - Vital Signs/Intake & Output Reviewed Vital Signs: Yes Vital Signs: Vital Signs x48h Temp Pulse Resp BP Pulse Ox 04/29/17 16:09 36.9 C 117 H 24 183/98 H 96 04/29/17 14:03 37.2 C 04/29/17 11:54 37.7 C H 115 H 18 153/99 H 94 Intake & Output: Intake & Output 04/26/17 04/27/17 04/28/17 04/29/17 23:59 23:59 23:59 23:59 Intake Total 2295.334 2887.5 2428.667 Output Total 400 Balance 4741.714 9907.5 2428.667 - Objective General Appearance: positive: No acute distress, Alert. negative: Lethargic Eyes Bilateral: positive: Normal inspection, PERRL. negative: No lid inflammation, Conjunctivae nml ENT: positive: ENT inspection nml, Pharynx nml, No signs of dehydration. negative: Purulent nasal drainage, Pharyngeal erythema, Oral lesions Neck: positive: Nml inspection, Thyroid nml, Trachea midline. negative: Thyromegaly, Lymphadenopathy (R), Lymphadenopathy (L), Stiff neck, Carotid bruit , Swelling/bruising, Tracheal deviation Respiratory: positive: Chest non-tender, No respiratory distress, Breath sounds nml. negative: Wheezes, Rales, Rhonchi Cardiovascular: positive: Regular rate & rhythm, No murmur, No gallop. negative : Irregularly irregular, Extrasystoles, Tachycardia, Bradycardia, Systolic murmur, Diastolic murmur Peripheral Pulses: 2+ Radial (R), 2+ Radial (L), 2+ Dorsalis pedis (R), 2+ Dorsalis pedis (L) Abdomen: positive: Non-tender, Nml bowel sounds, No distention. negative: Tenderness, Guarding, Rebound Back: positive: Nml inspection. negative: CVA tenderness (R), CVA tenderness (L ) Skin: positive: Color nml, No rash, Warm, Dry. negative: Cyanosis, Diaphoresis , Pallor Extremities: positive: Non-tender, Full ROM, Nml appearance. negative: Calf tenderness, Martín's sign/cords Neurologic/Psychiatric: positive: Motor nml, Sensation nml. negative: Sensory loss, Facial droop, Slurred/abnml speech - Lab Results Fish Bones: 04/29/17 07:38 04/29/17 07:38 Other Labs: Lab Results x24hrs 04/29/17 04/29/17 04/29/17 Range/Units 16:38 11:39 07:38 WBC 18.1 H (4.8-10.8) x10^3/uL RBC 3.87 L (4.70-6.10) 10^6/uL Hgb 12.3 L (14.0-18.0) g/dL Hct 36.7 L (42.0-52.0) % MCV 94.6 H (80.0-94.0) fL MCH 31.8 H (27.0-31.0) pg MCHC 33.6 (32.0-36.0) g/dL RDW 16.0 H (12.0-15.0) % Plt Count 108 L (130-450) 10^3/uL MPV 9.4 (7.4-11.4) fL Neut # 13.8 H (1.5-6.6) 10^3/uL Lymph # 2.5 (1.5-3.5) 10^3/uL [place] # 1.8 H (0.0-1.0) 10^3/uL Eos # 0.0 (0.0-0.7) 10^3/uL Baso # 0.0 (0.0-0.1) 10^3/uL Absolute Nucleated RBC 0.01 x10^3/uL Nucleated RBC % 0.0 /100WBC Sodium (135-145) mmol/L Potassium (3.5-5.0) mmol/L Chloride (101-111) mmol/L Carbon Dioxide (21-32) mmol/L Anion Gap (6-13) BUN (6-20) mg/dL Creatinine (0.6-1.2) mg/dL Estimated GFR (MDRD) (>89) Glucose (70-100) mg/dL POC Whole Bld Glucose 116 H 120 H (70 - 100) mg/dL Calcium (8.5-10.3) mg/dL Total Bilirubin (0.2-1.0) mg/dL AST (10-42) IU/L ALT (10-60) IU/L Alkaline Phosphatase (42-121) IU/L Total Protein (6.7-8.2) g/dL Albumin (3.2-5.5) g/dL Globulin (2.1-4.2) g/dL Albumin/Globulin Ratio (1.0-2.2) Amylase (28-100) U/L Lipase (22-51) U/L 04/29/17 04/29/17 04/28/17 Range/Units 07:38 05:54 23:54 WBC (4.8-10.8) x10^3/uL RBC (4.70-6.10) 10^6/uL Hgb (14.0-18.0) g/dL Hct (42.0-52.0) % MCV (80.0-94.0) fL MCH (27.0-31.0) pg MCHC (32.0-36.0) g/dL RDW (12.0-15.0) % Plt Count (130-450) 10^3/uL MPV (7.4-11.4) fL Neut # (1.5-6.6) 10^3/uL Lymph # (1.5-3.5) 10^3/uL [place] # (0.0-1.0) 10^3/uL Eos # (0.0-0.7) 10^3/uL Baso # (0.0-0.1) 10^3/uL Absolute Nucleated RBC x10^3/uL Nucleated RBC % /100WBC Sodium 138 (135-145) mmol/L Potassium 3.4 L (3.5-5.0) mmol/L Chloride 107 (101-111) mmol/L Carbon Dioxide 21 (21-32) mmol/L Anion Gap 10.0 (6-13) BUN 12 (6-20) mg/dL Creatinine 0.6 (0.6-1.2) mg/dL Estimated GFR (MDRD) 166 (>89) Glucose 125 H (70-100) mg/dL POC Whole Bld Glucose 118 H 117 H (70 - 100) mg/dL Calcium 8.4 L (8.5-10.3) mg/dL Total Bilirubin 0.8 (0.2-1.0) mg/dL AST 47 H (10-42) IU/L ALT 20 (10-60) IU/L Alkaline Phosphatase 60 (42-121) IU/L Total Protein 6.8 (6.7-8.2) g/dL Albumin 2.8 L (3.2-5.5) g/dL Globulin 4.0 (2.1-4.2) g/dL Albumin/Globulin Ratio 0.7 L (1.0-2.2) Amylase 213 H (28-100) U/L Lipase 81 H (22-51) U/L 04/28/17 Range/Units 18:38 WBC (4.8-10.8) x10^3/uL RBC (4.70-6.10) 10^6/uL Hgb (14.0-18.0) g/dL Hct (42.0-52.0) % MCV (80.0-94.0) fL MCH (27.0-31.0) pg MCHC (32.0-36.0) g/dL RDW (12.0-15.0) % Plt Count (130-450) 10^3/uL MPV (7.4-11.4) fL Neut # (1.5-6.6) 10^3/uL Lymph # (1.5-3.5) 10^3/uL [place] # (0.0-1.0) 10^3/uL Eos # (0.0-0.7) 10^3/uL Baso # (0.0-0.1) 10^3/uL Absolute Nucleated RBC x10^3/uL Nucleated RBC % /100WBC Sodium (135-145) mmol/L Potassium (3.5-5.0) mmol/L Chloride (101-111) mmol/L Carbon Dioxide (21-32) mmol/L Anion Gap (6-13) BUN (6-20) mg/dL Creatinine (0.6-1.2) mg/dL Estimated GFR (MDRD) (>89) Glucose (70-100) mg/dL POC Whole Bld Glucose 121 H (70 - 100) mg/dL Calcium (8.5-10.3) mg/dL Total Bilirubin (0.2-1.0) mg/dL AST (10-42) IU/L ALT (10-60) IU/L Alkaline Phosphatase (42-121) IU/L Total Protein (6.7-8.2) g/dL Albumin (3.2-5.5) g/dL Globulin (2.1-4.2) g/dL Albumin/Globulin Ratio (1.0-2.2) Amylase (28-100) U/L Lipase (22-51) U/L Assessment/Plan - Problem List (1) Pancreatitis Impression: (1) Pancreatitis Impression: significant decrease of Lipase and Amylase. No vomiting, nausea, diarrhea. pain is good controlled add clear liquid diet continue IVF hydration monitor Lipase pain control vital and tele monitor Qualifiers: Chronicity: acute Pancreatitis type: drug induced Acute pancreatitis complication: unspecified Qualified Code(s): K85.30 - Drug induced acute pancreatitis without necrosis or infection (2) Pseudocyst of pancreas Impression: MRCP reviewed, called and consulted with surgeon Dr. Ocampo, will follow up continue Zosyn Amylase to monitor Pseudocyst progress if it is in the healing process closely monitor pt, vital, tele, close monitor if infected and captured pseudocyst CT of abd reveal significant pseudocyst. elevated WBC, spot fever on last night. add Zosyn, will check lactic acid MRCP is pending, pt's vital stable, pain is in the control, without acute distress. will consult with surgeon after MRCP done check CEA to monitor neoplasma, order Amylase to monitor Pseudocyst progress if it is in the healing process closely monitor pt, vital, tele, close monitor if infected and captured pseudocyst (3) Acute kidney injury Impression: improved after hydration, will continue hydration daily lab test monitor (4) HTN (hypertension) Impression: resume home meds add hydralazine and Clonidine PRN monitor with vital, tele (5) Disorganized schizophrenia Impression: stable, resume of home meds (6) Seizure Impression: seizure precaution test of phenytoin and valproic acid, WNL resume of home meds (7) Asthma Impression: stable, resume home meds (9) Hx of traumatic brain injury Impression: no acute injury. continue support care (10)pneumonia with spot fever CXR reveal pt has pneumonia bilaterally and fever spot, although pt had Zosyn add vancomycin continue IVF, daily lab test Qualifiers: Chronicity: acute Pancreatitis type: drug induced Acute pancreatitis complication: unspecified Qualified Code(s): K85.30 - Drug induced acute pancreatitis without necrosis or infection
[2017-04-29] MEDS: ATENOLOL 25 MG TABLET PO SCH (18:47)
[2017-04-29] MEDS: OLANZapine ODT 5 MG TABLET TL SCH (18:49)
[2017-04-29] MEDS: HYDROCORTISONE 1% CREAM 28 GM TUBE TOP SCH ×2 (19:02→21:34)
[2017-04-29] MEDS: VANCOMYCIN INJ 1 GM in SODIUM CHLORIDE 0.9% 250 ML IV SCH (22:03)
[2017-04-30] MEDS: PIPERACILLIN/TAZOBACTAM 3.375 GM in SODIUM CHLORIDE 0.9% MINIBAG 100 ML IV SCH ×4 (01:41→19:15)
[2017-04-30] MEDS: TAMSULOSIN 0.4 MG CAPSULE PO SCH (05:29)
[2017-04-30] MEDS: amLODIPine 5 MG TABLET PO SCH (05:29)
[2017-04-30] MEDS: FLUoxetine 10 MG CAPSULE PO SCH (05:30)
[2017-04-30] MEDS: SODIUM CHLORIDE 0.9% 1,000 ML IV SCH ×3 (05:37→17:40)
[2017-04-30] MEDS: SODIUM CHLORIDE FLUSH 0.9% 10 ML SYRINGE IVP SCH ×3 (05:38→23:30)
[2017-04-30 05:46] LABS: BASOPHILS % (AUTO) 0.2 %; EOSINOPHILS % (AUTO) 0.1 %; HCT - HEMATOCRIT 38.5 % (42.0-52.0); HGB - HEMOGLOBIN 12.8 g/dL (14.0-18.0); LYMPHOCYTES % (AUTO) 12.8 %; MEAN CORPUSCULAR HEMOGLOBIN 32.1 pg (27.0-31.0); MEAN CORPUSCULAR HGB CONC 33.3 g/dL (32.0-36.0); MEAN CORPUSCULAR VOLUME 96.5 fL (80.0-94.0); MEAN PLATELET VOLUME 9.2 fL (7.4-11.4); NEUTROPHILS % (AUTO) 75.9 %; RED BLOOD COUNT 3.99 10^6/uL (4.70-6.10); RED CELL DISTRIBUTION WIDTH 15.6 % (12.0-15.0); UNCORRECTED WHITE BLOOD COUNT 15.2 x10^3/uL; WHITE BLOOD COUNT 15.2 x10^3/uL (4.8-10.8)
[2017-04-30 05:59] LABS: ALBUMIN/GLOBULIN RATIO 0.7 (1.0-2.2); BILIRUBIN,TOTAL 0.9 mg/dL (0.2-1.0); CALCIUM 8.2 mg/dL (8.5-10.3); CREATININE 0.6 mg/dL (0.6-1.2); TOTAL PROTEIN 6.7 g/dL (6.7-8.2)
[2017-04-30 06:18] LABS: BAND NEUTROPHILS % (MANUAL) 10 %; LYMPHOCYTES % (MANUAL) 25 %; NEUTROPHILS % (MANUAL) 59 %; NP AUTO DIFFERENTIAL? YES; NP MAN DIFFERENTIAL? NO; PLATELET ESTIMATE, MANUAL DECREASED (<130,000) (NORMAL); TOTAL CELLS COUNTED 100
[2017-04-30] MEDS ORDERED: POTASSIUM CHLORIDE 20 MEQ TABLET PO SCH ×2 (08:00)
[2017-04-30] MEDS ORDERED: POTASSIUM CHLOR 10 MEQ/100 ML 10 MEQ/100 ML BAG IV ONE (08:15)
[2017-04-30] MEDS: DIVALPROEX DR 250 MG TABLET PO SCH ×2 (08:24→17:00)
[2017-04-30] MEDS: ASPIRIN EC 81 MG TABLET PO SCH (08:24)
[2017-04-30] MEDS: MULTIVITAMIN TABLET PO SCH (08:24)
[2017-04-30] MEDS: PHENYTOIN ER 100 MG CAPSULE PO SCH ×2 (08:24→17:01)
[2017-04-30] MEDS: NICOTINE 14 MG PATCH TOP SCH (08:25)
[2017-04-30] MEDS: POLYETHYLENE GLYCOL 3350 17 GM PACKET PO SCH (08:25)
[2017-04-30] MEDS: ENOXAPARIN 40 MG/0.4 ML SYRINGE SUBQ SCH (08:26)
--- NOTE | 2017-04-30 08:35 | XRAY Report ---
FRONTAL CHEST: 04/30/2017 CLINICAL INDICATION: Shortness of breath. COMPARISON: 04/28/2017 FINDINGS: Frontal view of the chest again demonstrates a normal cardiac silhouette. Bibasilar air-s pace disease is stable. No definite effusion or pneumothorax is seen. IMPRESSION: STABLE BIBASILAR AIR-SPACE DISEASE. JOB #: [id number] EXT JOB #:[id number]
[2017-04-30] MEDS ORDERED: CALCIUM GLUCONATE 1,000 MG in SODIUM CHLORIDE 0.9% 50 ML IV ONE (08:45)
[2017-04-30] MEDS ORDERED: POTASSIUM CHLORIDE 20 MEQ TABLET PO ONE (09:00)
[2017-04-30] MEDS: VANCOMYCIN INJ 1 GM in SODIUM CHLORIDE 0.9% 250 ML IV SCH ×2 (10:31→22:28)
[2017-04-30] MEDS: HYDROCORTISONE 1% CREAM 28 GM TUBE TOP SCH ×2 (10:33→22:27)
--- NOTE | 2017-04-30 13:05 | PROVIDER PROGRESS NOTE ---
Subjective - Prog Note Date Prog Note Date: 04/30/17 - Subjective Pt reports feeling: Improved Subjective: pt report he feel better, no pain. Current Medications - Current Medications Current Medications: Active Medications Acetaminophen (Tylenol) 650 mg PO Q4HR PRN PRN Reason: Pain or Fever > 38C (100.4F) Last Admin: 04/29/17 17:29 Dose: 650 mg Al Hydroxide/Mg Hydroxide (Mylanta Plus) 30 ml PO Q4H PRN PRN Reason: NEEDED PER PROVIDER ORDERS Amlodipine Besylate (Norvasc) 10 mg PO 0600 [facility] Last Admin: 04/30/17 05:29 Dose: 10 mg Aspirin (Ecotrin) 81 mg PO DAILY [facility] Last Admin: 04/30/17 08:24 Dose: 81 mg Atenolol (Tenormin) 25 mg PO 1800 [facility] Last Admin: 04/29/17 18:47 Dose: 25 mg Clonidine HCl (Catapres) 0.1 mg PO BID PRN PRN Reason: Hypertensive Emergency Last Admin: 04/28/17 09:28 Dose: 0.1 mg Divalproex Sodium (Depakote Dr) 1,750 mg PO 1800 [facility] Last Admin: 04/29/17 18:50 Dose: 1,750 mg Divalproex Sodium (Depakote Dr) 2,000 mg PO DAILY [facility] Last Admin: 04/30/17 08:24 Dose: 2,000 mg Enoxaparin Sodium (Lovenox) 40 mg SUBQ DAILY [facility] Last Admin: 04/30/17 08:26 Dose: 40 mg Fluoxetine HCl (Prozac) 20 mg PO 0600 [facility] Last Admin: 04/30/17 05:30 Dose: 20 mg Guaifenesin (Mucinex) 600 mg PO BID PRN PRN Reason: CONGESTION Hydralazine HCl (Apresoline Inj) 10 mg IVP DAILY PRN PRN Reason: Hypertensive Emergency Hydrocortisone (Hydrocortisone) 1 applic TOP BID [facility] Last Admin: 04/30/17 10:33 Dose: Not Given Hydromorphone HCl (Dilaudid) 0.5 mg IVP Q2HR PRN PRN Reason: Pain 8 to 10 Last Admin: 04/28/17 01:15 Dose: 0.5 mg Piperacillin Sod/Tazobactam (Sod 3.375 gm/ Sodium Chloride) 100 mls @ 200 mls/ hr IV Q6H [facility] Last Infusion: 04/30/17 09:02 Dose: Infused Sodium Chloride (Normal Saline 0.9%) 1,000 mls @ 125 mls/hr IV .Q8H [facility] Last Admin: 04/30/17 09:43 Dose: Not Given Vancomycin HCl 1 gm/ Sodium (Chloride) 250 mls @ 167 mls/hr IV Q12H [facility] Last Infusion: 04/30/17 12:00 Dose: Infused Potassium Chloride (Potassium Chloride) 10 meq in 100 mls @ 100 mls/hr IV Q1H [facility] Stop: 04/30/17 14:00 Loperamide HCl (Imodium) 2 mg PO QID PRN PRN Reason: Diarrhea Loratadine (Claritin) 10 mg PO DAILY PRN PRN Reason: Allergy Symptoms Multivitamins (Theragran) 1 tab PO DAILYWM [facility] Last Admin: 04/30/17 08:24 Dose: 1 tab Nicotine (Nicoderm) 1 patch TOP DAILY [facility] Last Admin: 04/30/17 08:25 Dose: Not Given Olanzapine (Zyprexa Odt) 15 mg TL 1800 [facility] Last Admin: 04/29/17 18:49 Dose: 15 mg Phenytoin Sodium (Dilantin) 200 mg PO DAILY [facility] Last Admin: 04/30/17 08:24 Dose: 200 mg Phenytoin Sodium (Dilantin) 100 mg PO 1800 [facility] Last Admin: 04/29/17 18:51 Dose: 100 mg Polyethylene Glycol (Miralax) 17 gm PO DAILY [facility] Last Admin: 04/30/17 08:25 Dose: Not Given Sodium Chloride (Normal Saline Flush 0.9%) 10 ml IVP PRN PRN PRN Reason: NEEDED PER PROVIDER ORDERS Last Admin: 04/28/17 12:47 Dose: 10 ml Sodium Chloride (Normal Saline Flush 0.9%) 10 ml IVP Q8HR [facility] Last Admin: 04/30/17 05:38 Dose: Not Given Sodium Chloride (Normal Saline) 3 ml INH PRN PRN PRN Reason: Levalbuterol treatment Last Admin: 04/29/17 02:50 Dose: 3 ml Tamsulosin HCl (Flomax) 0.4 mg PO 0600 [facility] Last Admin: 04/30/17 05:29 Dose: 0.4 mg Amlodipine Besylate 10 mg PO 0600 08 Atenolol 25 mg PO 1800 02/21/14 FLUoxetine [PROzac] 20 mg PO 0600 02/21/14 OLANZapine [ZyPREXA] 15 mg PO 1800 02/21/14 Alum-Mag Hydroxide [Mylanta] 30 ml PO Q4H PRN 05/22/16 Guaifenesin [Mucinex] 600 mg PO BID PRN 05/22/16 Loperamide [Imodium] 2 mg PO QID PRN 05/22/16 Multivitamin [Multiple Vitamins] 1 tab PO 1800 05/22/16 Tamsulosin [Flomax] 0.4 mg PO 0600 05/22/16 Divalproex [Arianna Bolton] 1,750 mg PO 1800 06/04/16 Divalproex [Arianna Bolton] 2,000 mg PO 0600 06/04/16 Loratadine [Claritin] 10 mg PO DAILY PRN 06/04/16 Acetaminophen 1 tab PO BID PRN 07/08/16 Aspirin [Aspir-Low] 81 mg PO DAILY 07/08/16 Phenytoin [Dilantin] 100 mg PO 1800 07/08/16 Polyethylene Glycol 3350 [Miralax] 17 gm PO DAILY PRN 07/08/16 Phenytoin [Dilantin] 200 mg PO 0600 08/06/16 Objective - Vital Signs/Intake & Output Reviewed Vital Signs: Yes Vital Signs: Vital Signs x48h Temp Pulse Resp BP BP Pulse Ox 04/30/17 08:05 37.5 C 111 H 16 144/90 H 92 04/30/17 06:02 37.3 C 103 H 26 H 175/81 H 94 Intake & Output: Intake & Output 04/27/17 04/28/17 04/29/17 04/30/17 23:59 23:59 23:59 23:59 Intake Total 2295.334 2887.5 4340.000 1110 Output Total 400 300 200 Balance 0083.428 0672.5 4040.000 910 - Objective General Appearance: positive: No acute distress, Alert. negative: Lethargic Eyes Bilateral: positive: Normal inspection, PERRL, No lid inflammation, Conjunctivae nml ENT: positive: ENT inspection nml, Pharynx nml, No signs of dehydration. negative: Purulent nasal drainage, Pharyngeal erythema, Oral lesions Neck: positive: Nml inspection, Thyroid nml, No JVD, Trachea midline. negative : Thyromegaly, Lymphadenopathy (R), Lymphadenopathy (L), Stiff neck, Carotid bruit, Swelling/bruising, Tracheal deviation Respiratory: positive: Chest non-tender, No respiratory distress, Breath sounds nml. negative: Wheezes, Rales, Rhonchi Cardiovascular: positive: Regular rate & rhythm, No murmur, No gallop. negative : Irregularly irregular, Extrasystoles, Tachycardia, Bradycardia, Systolic murmur, Diastolic murmur Peripheral Pulses: 2+ Radial (R), 2+ Radial (L), 2+ Dorsalis pedis (R), 2+ Dorsalis pedis (L) Abdomen: positive: Non-tender, Nml bowel sounds, No distention. negative: Tenderness, Guarding, Rebound Back: positive: Nml inspection. negative: CVA tenderness (R), CVA tenderness (L ) Skin: positive: Color nml, No rash, Warm, Dry. negative: Cyanosis, Diaphoresis , Pallor, Skin rash Extremities: positive: Non-tender, Full ROM, Nml appearance. negative: Calf tenderness, Martín's sign/cords Neurologic/Psychiatric: positive: Motor nml, Sensation nml, Mood/affect nml. negative: Sensory loss, Facial droop, Slurred/abnml speech, Depressed mood/ affect - Lab Results Fish Bones: 04/30/17 05:26 04/30/17 05:26 Other Labs: Lab Results x24hrs 04/30/17 04/30/17 04/30/17 Range/Units 11:31 07:54 05:26 WBC 15.2 H (4.8-10.8) x10^3/uL RBC 3.99 L (4.70-6.10) 10^6/uL Hgb 12.8 L (14.0-18.0) g/dL Hct 38.5 L (42.0-52.0) % MCV 96.5 H (80.0-94.0) fL MCH 32.1 H (27.0-31.0) pg MCHC 33.3 (32.0-36.0) g/dL RDW 15.6 H (12.0-15.0) % Plt Count 112 L (130-450) 10^3/uL MPV 9.2 (7.4-11.4) fL Neut # Not Reportable Lymph # Not Reportable [place] # Not Reportable Eos # Not Reportable Baso # Not Reportable Absolute Nucleated RBC Not Reportable Total Counted 100 Band Neuts % (Manual) 10 (0 - 10) % Nucleated RBC % Not Reportable Neutrophils # (Manual) 10.5 H (1.5-6.6) 10^3/uL Lymphocytes # (Manual) 3.8 H (1.5-3.5) 10^3/uL Monocytes # (Manual) 0.9 (0.0-1.0) 10^3/uL Differential Comment MANUAL DIFFERENTIAL Platelet Estimate DECREASED (<130,000) (NORMAL) RBC Morph Micro Appear NORMAL APPEARANCE (NORMAL) Sodium (135-145) mmol/L Potassium (3.5-5.0) mmol/L Chloride (101-111) mmol/L Carbon Dioxide (21-32) mmol/L Anion Gap (6-13) BUN (6-20) mg/dL Creatinine (0.6-1.2) mg/dL Estimated GFR (MDRD) (>89) Glucose (70-100) mg/dL POC Whole Bld Glucose 111 H 100 (70 - 100) mg/dL Calcium (8.5-10.3) mg/dL Total Bilirubin (0.2-1.0) mg/dL AST (10-42) IU/L ALT (10-60) IU/L Alkaline Phosphatase (42-121) IU/L Total Protein (6.7-8.2) g/dL Albumin (3.2-5.5) g/dL Globulin (2.1-4.2) g/dL Albumin/Globulin Ratio (1.0-2.2) Amylase (28-100) U/L Lipase (22-51) U/L 04/30/17 04/29/17 Range/Units 05:26 16:38 WBC (4.8-10.8) x10^3/uL RBC (4.70-6.10) 10^6/uL Hgb (14.0-18.0) g/dL Hct (42.0-52.0) % MCV (80.0-94.0) fL MCH (27.0-31.0) pg MCHC (32.0-36.0) g/dL RDW (12.0-15.0) % Plt Count (130-450) 10^3/uL MPV (7.4-11.4) fL Neut # Lymph # [place] # Eos # Baso # Absolute Nucleated RBC Total Counted Band Neuts % (Manual) (0 - 10) % Nucleated RBC % Neutrophils # (Manual) (1.5-6.6) 10^3/uL Lymphocytes # (Manual) (1.5-3.5) 10^3/uL Monocytes # (Manual) (0.0-1.0) 10^3/uL Differential Comment Platelet Estimate (NORMAL) RBC Morph Micro Appear (NORMAL) Sodium 136 (135-145) mmol/L Potassium 3.0 L (3.5-5.0) mmol/L Chloride 104 (101-111) mmol/L Carbon Dioxide 21 (21-32) mmol/L Anion Gap 11.0 (6-13) BUN 10 (6-20) mg/dL Creatinine 0.6 (0.6-1.2) mg/dL Estimated GFR (MDRD) 166 (>89) Glucose 107 H (70-100) mg/dL POC Whole Bld Glucose 116 H (70 - 100) mg/dL Calcium 8.2 L (8.5-10.3) mg/dL Total Bilirubin 0.9 (0.2-1.0) mg/dL AST 54 H (10-42) IU/L ALT 22 (10-60) IU/L Alkaline Phosphatase 61 (42-121) IU/L Total Protein 6.7 (6.7-8.2) g/dL Albumin 2.7 L (3.2-5.5) g/dL Globulin 4.0 (2.1-4.2) g/dL Albumin/Globulin Ratio 0.7 L (1.0-2.2) Amylase 181 H (28-100) U/L Lipase 76 H (22-51) U/L Assessment/Plan - Problem List (1) Pancreatitis Impression: (1) Pancreatitis Impression: consistently improved, no pain. Lipase and Amylase consistently run down continue hydration clear diet now significant decrease of Lipase and Amylase. No vomiting, nausea, diarrhea. pain is good controlled add clear liquid diet continue IVF hydration monitor Lipase pain control vital and tele monitor Qualifiers: Chronicity: acute Pancreatitis type: drug induced Acute pancreatitis complication: unspecified Qualified Code(s): K85.30 - Drug induced acute pancreatitis without necrosis or infection (2) Pseudocyst of pancreas Impression: continue monitor, follow up surgeon MRCP reviewed, called and consulted with surgeon Dr. Ocampo, will follow up continue Zosyn Amylase to monitor Pseudocyst progress if it is in the healing process closely monitor pt, vital, tele, close monitor if infected and captured pseudocyst CT of abd reveal significant pseudocyst. elevated WBC, spot fever on last night. add Zosyn, will check lactic acid MRCP is pending, pt's vital stable, pain is in the control, without acute distress. will consult with surgeon after MRCP done check CEA to monitor neoplasma, order Amylase to monitor Pseudocyst progress if it is in the healing process closely monitor pt, vital, tele, close monitor if infected and captured pseudocyst (3) Acute kidney injury Impression: resolved improved after hydration, will continue hydration daily lab test monitor (4) HTN (hypertension) Impression: hydralazine and Clonidine PRN vital monitor closely resume home meds add hydralazine and Clonidine PRN monitor with vital, tele (5) Disorganized schizophrenia Impression: stable, resume of home meds (6) Seizure Impression: seizure precaution test of phenytoin and valproic acid, WNL resume of home meds (7) Asthma Impression: stable, resume home meds (8) pneumonia no fever, and WBC is drop now continue antibiotic order another CXR to monitor tele, vital monitor (9) Hx of traumatic brain injury Impression: no acute injury. continue support care Qualifiers: Chronicity: acute Pancreatitis type: drug induced Acute pancreatitis complication: unspecified Qualified Code(s): K85.30 - Drug induced acute pancreatitis without necrosis or infection
[2017-04-30] MEDS: POTASSIUM CHLOR 10 MEQ/100 ML 10 MEQ/100 ML BAG IV SCH ×2 (13:17→14:16)
[2017-04-30] MEDS ORDERED: HYDROmorphone 0.5 MG/0.5 ML SYRINGE IVP PRN (14:35)
[2017-04-30] MEDS: ATENOLOL 25 MG TABLET PO SCH (17:01)
[2017-04-30] MEDS: OLANZapine ODT 5 MG TABLET TL SCH (17:01)
[2017-05-01] MEDS: SODIUM CHLORIDE 0.9% 1,000 ML IV SCH ×3 (01:56→16:00)
[2017-05-01] MEDS: PIPERACILLIN/TAZOBACTAM 3.375 GM in SODIUM CHLORIDE 0.9% MINIBAG 100 ML IV SCH ×4 (02:09→20:12)
[2017-05-01] MEDS: amLODIPine 5 MG TABLET PO SCH (05:12)
[2017-05-01] MEDS: SODIUM CHLORIDE FLUSH 0.9% 10 ML SYRINGE IVP SCH ×3 (05:13→20:12)
[2017-05-01] MEDS: FLUoxetine 10 MG CAPSULE PO SCH (05:13)
[2017-05-01] MEDS: TAMSULOSIN 0.4 MG CAPSULE PO SCH (05:13)
[2017-05-01 05:19] LABS: BASOPHILS % (AUTO) 0.1 %; EOSINOPHILS % (AUTO) 0.2 %; HCT - HEMATOCRIT 38.9 % (42.0-52.0); HGB - HEMOGLOBIN 12.9 g/dL (14.0-18.0); LYMPHOCYTES % (AUTO) 15.1 %; MEAN CORPUSCULAR HEMOGLOBIN 32.1 pg (27.0-31.0); MEAN CORPUSCULAR HGB CONC 33.2 g/dL (32.0-36.0); MEAN CORPUSCULAR VOLUME 96.8 fL (80.0-94.0); MEAN PLATELET VOLUME 9.2 fL (7.4-11.4); NEUTROPHILS % (AUTO) 71.6 %; RED BLOOD COUNT 4.01 10^6/uL (4.70-6.10); RED CELL DISTRIBUTION WIDTH 15.3 % (12.0-15.0); UNCORRECTED WHITE BLOOD COUNT 13.5 x10^3/uL; WHITE BLOOD COUNT 13.5 x10^3/uL (4.8-10.8)
[2017-05-01 05:33] LABS: ALBUMIN/GLOBULIN RATIO 0.7 (1.0-2.2); BILIRUBIN,TOTAL 0.9 mg/dL (0.2-1.0); CALCIUM 8.4 mg/dL (8.5-10.3); CREATININE 0.6 mg/dL (0.6-1.2); POTASSIUM 2.8 mmol/L (3.5-5.0); TOTAL PROTEIN 6.6 g/dL (6.7-8.2)
[2017-05-01 05:48] LABS: BAND NEUTROPHILS % (MANUAL) 3 %; LYMPHOCYTES % (MANUAL) 30 %; NEUTROPHILS % (MANUAL) 56 %; NP AUTO DIFFERENTIAL? YES; NP MAN DIFFERENTIAL? NO; PLATELET ESTIMATE, MANUAL NORMAL (130-450,000) (NORMAL); TOTAL CELLS COUNTED 100
[2017-05-01] MEDS: POTASSIUM CHLOR 10 MEQ/100 ML 10 MEQ/100 ML BAG IV SCH ×4 (09:07→17:16)
[2017-05-01] MEDS: MULTIVITAMIN TABLET PO SCH (11:26)
[2017-05-01] MEDS: DIVALPROEX DR 250 MG TABLET PO SCH ×2 (11:26→17:18)
[2017-05-01] MEDS: ASPIRIN EC 81 MG TABLET PO SCH (11:27)
[2017-05-01] MEDS: PHENYTOIN ER 100 MG CAPSULE PO SCH ×2 (11:32→17:18)
[2017-05-01] MEDS: NICOTINE 14 MG PATCH TOP SCH (11:33)
[2017-05-01] MEDS: ENOXAPARIN 40 MG/0.4 ML SYRINGE SUBQ SCH (11:36)
[2017-05-01] MEDS: VANCOMYCIN INJ 1 GM in SODIUM CHLORIDE 0.9% 250 ML IV SCH ×2 (11:38→21:39)
--- NOTE | 2017-05-01 12:49 | PROVIDER PROGRESS NOTE ---
Subjective - Prog Note Date Prog Note Date: 05/01/17 - Subjective Pt reports feeling: Improved Subjective: pt report he feel better and comfortable site at the chair. No complaints Current Medications - Current Medications Current Medications: Active Medications Acetaminophen (Tylenol) 650 mg PO Q4HR PRN PRN Reason: Pain or Fever > 38C (100.4F) Last Admin: 04/29/17 17:29 Dose: 650 mg Al Hydroxide/Mg Hydroxide (Mylanta Plus) 30 ml PO Q4H PRN PRN Reason: NEEDED PER PROVIDER ORDERS Amlodipine Besylate (Norvasc) 10 mg PO 0600 [facility] Last Admin: 05/01/17 05:12 Dose: 10 mg Aspirin (Ecotrin) 81 mg PO DAILY [facility] Last Admin: 04/30/17 08:24 Dose: 81 mg Atenolol (Tenormin) 25 mg PO 1800 [facility] Last Admin: 04/30/17 17:01 Dose: 25 mg Clonidine HCl (Catapres) 0.1 mg PO BID PRN PRN Reason: Hypertensive Emergency Last Admin: 04/28/17 09:28 Dose: 0.1 mg Divalproex Sodium (Depakote Dr) 1,750 mg PO 1800 [facility] Last Admin: 04/30/17 17:00 Dose: 1,750 mg Divalproex Sodium (Depakote Dr) 2,000 mg PO DAILY [facility] Last Admin: 04/30/17 08:24 Dose: 2,000 mg Enoxaparin Sodium (Lovenox) 40 mg SUBQ DAILY [facility] Last Admin: 04/30/17 08:26 Dose: 40 mg Fluoxetine HCl (Prozac) 20 mg PO 0600 [facility] Last Admin: 05/01/17 05:13 Dose: 20 mg Guaifenesin (Mucinex) 600 mg PO BID PRN PRN Reason: CONGESTION Hydralazine HCl (Apresoline Inj) 10 mg IVP DAILY PRN PRN Reason: Hypertensive Emergency Hydrocortisone (Hydrocortisone) 1 applic TOP BID [facility] Last Admin: 04/30/17 22:27 Dose: Not Given Hydromorphone HCl (Dilaudid Inj Syringe) 0.5 mg IVP Q2HR PRN PRN Reason: Pain 8 to 10 Last Admin: 04/30/17 23:40 Dose: 0.5 mg Piperacillin Sod/Tazobactam (Sod 3.375 gm/ Sodium Chloride) 100 mls @ 200 mls/ hr IV Q6H [facility] Last Admin: 05/01/17 08:08 Dose: 200 mls/hr Sodium Chloride (Normal Saline 0.9%) 1,000 mls @ 125 mls/hr IV .Q8H [facility] Last Infusion: 05/01/17 08:09 Dose: 0 mls/hr Vancomycin HCl 1 gm/ Sodium (Chloride) 250 mls @ 167 mls/hr IV Q12H [facility] Last Infusion: 05/01/17 00:25 Dose: Infused Loperamide HCl (Imodium) 2 mg PO QID PRN PRN Reason: Diarrhea Loratadine (Claritin) 10 mg PO DAILY PRN PRN Reason: Allergy Symptoms Multivitamins (Theragran) 1 tab PO DAILYWM [facility] Last Admin: 04/30/17 08:24 Dose: 1 tab Nicotine (Nicoderm) 1 patch TOP DAILY [facility] Last Admin: 04/30/17 08:25 Dose: Not Given Olanzapine (Zyprexa Odt) 15 mg TL 1800 [facility] Last Admin: 04/30/17 17:01 Dose: 15 mg Phenytoin Sodium (Dilantin) 200 mg PO DAILY [facility] Last Admin: 04/30/17 08:24 Dose: 200 mg Phenytoin Sodium (Dilantin) 100 mg PO 1800 [facility] Last Admin: 04/30/17 17:01 Dose: 100 mg Polyethylene Glycol (Miralax) 17 gm PO DAILY [facility] Last Admin: 04/30/17 08:25 Dose: Not Given Sodium Chloride (Normal Saline Flush 0.9%) 10 ml IVP PRN PRN PRN Reason: NEEDED PER PROVIDER ORDERS Last Admin: 04/28/17 12:47 Dose: 10 ml Sodium Chloride (Normal Saline Flush 0.9%) 10 ml IVP Q8HR [facility] Last Admin: 05/01/17 05:13 Dose: Not Given Sodium Chloride (Normal Saline) 3 ml INH PRN PRN PRN Reason: Levalbuterol treatment Last Admin: 04/29/17 02:50 Dose: 3 ml Tamsulosin HCl (Flomax) 0.4 mg PO 0600 [facility] Last Admin: 05/01/17 05:13 Dose: 0.4 mg Amlodipine Besylate 10 mg PO 0600 02/21/14 Atenolol 25 mg PO 1800 14 FLUoxetine [PROzac] 20 mg PO 0600 02/21/14 OLANZapine [ZyPREXA] 15 mg PO 1800 02/21/14 Alum-Mag Hydroxide [Mylanta] 30 ml PO Q4H PRN 05/22/16 Guaifenesin [Mucinex] 600 mg PO BID PRN 05/22/16 Loperamide [Imodium] 2 mg PO QID PRN 05/22/16 Multivitamin [Multiple Vitamins] 1 tab PO 1800 05/22/16 Tamsulosin [Flomax] 0.4 mg PO 0600 05/22/16 Divalproex [Arianna Bolton] 1,750 mg PO 1800 06/04/16 Divalproex [Arianna Bolton] 2,000 mg PO 0600 06/04/16 Loratadine [Claritin] 10 mg PO DAILY PRN 06/04/16 Acetaminophen 1 tab PO BID PRN 07/08/16 Aspirin [Aspir-Low] 81 mg PO DAILY 07/08/16 Phenytoin [Dilantin] 100 mg PO 1800 07/08/16 Polyethylene Glycol 3350 [Miralax] 17 gm PO DAILY PRN 07/08/16 Phenytoin [Dilantin] 200 mg PO 0600 08/06/16 Objective - Vital Signs/Intake & Output Reviewed Vital Signs: Yes Vital Signs: Vital Signs x48h Temp Pulse Resp BP BP Pulse Ox 05/01/17 12:40 36.7 C 98 20 140/102 H 97 05/01/17 08:28 36.8 C 101 H 20 165/94 H 93 05/01/17 05:00 37.0 C 93 18 148/77 H 93 Intake & Output: Intake & Output 04/28/17 04/29/17 04/30/17 05/01/17 23:59 23:59 23:59 23:59 Intake Total 2887.5 4340.000 2708.333 1958.333 Output Total 300 400 200 Balance 2887.5 4040.000 2308.333 1758.333 - Objective General Appearance: positive: No acute distress, Alert. negative: Lethargic Eyes Bilateral: positive: Normal inspection, PERRL, No lid inflammation, Conjunctivae nml ENT: positive: ENT inspection nml, Pharynx nml, No signs of dehydration. negative: Purulent nasal drainage, Pharyngeal erythema, Oral lesions Neck: positive: Nml inspection, Thyroid nml, Trachea midline. negative: Thyromegaly, Lymphadenopathy (R), Lymphadenopathy (L), Stiff neck, Carotid bruit , Swelling/bruising, Tracheal deviation Respiratory: positive: Chest non-tender, No respiratory distress, Breath sounds nml. negative: Wheezes, Rales, Rhonchi Cardiovascular: positive: Regular rate & rhythm, No murmur, No gallop. negative : Irregularly irregular, Extrasystoles, Tachycardia, Bradycardia, Systolic murmur, Diastolic murmur Peripheral Pulses: 2+ Radial (R), 2+ Radial (L), 2+ Dorsalis pedis (R), 2+ Dorsalis pedis (L) Abdomen: positive: Non-tender, Nml bowel sounds, No distention. negative: Tenderness, Guarding, Rebound Back: positive: Nml inspection. negative: CVA tenderness (R), CVA tenderness (L ) Skin: positive: Color nml, No rash, Warm, Dry. negative: Cyanosis, Diaphoresis , Pallor, Skin rash Extremities: positive: Non-tender, Full ROM, Nml appearance. negative: Calf tenderness, Martín's sign/cords Neurologic/Psychiatric: positive: Motor nml, Sensation nml. negative: Sensory loss, Facial droop, Slurred/abnml speech, Depressed mood/affect - Lab Results Fish Bones: 05/01/17 05:10 05/01/17 05:10 Other Labs: Lab Results x24hrs 05/01/17 05/01/17 05/01/17 Range/Units 11:06 08:43 08:43 WBC (4.8-10.8) x10^3/uL RBC (4.70-6.10) 10^6/uL Hgb (14.0-18.0) g/dL Hct (42.0-52.0) % MCV (80.0-94.0) fL MCH (27.0-31.0) pg MCHC (32.0-36.0) g/dL RDW (12.0-15.0) % Plt Count (130-450) 10^3/uL MPV (7.4-11.4) fL Neut # Lymph # Dickens # Eos # Baso # Absolute Nucleated RBC Total Counted Band Neuts % (Manual) (0 - 10) % Nucleated RBC % Neutrophils # (Manual) (1.5-6.6) 10^3/uL Lymphocytes # (Manual) (1.5-3.5) 10^3/uL Monocytes # (Manual) (0.0-1.0) 10^3/uL Differential Comment Platelet Estimate (NORMAL) RBC Morph Micro Appear (NORMAL) Sodium (135-145) mmol/L Potassium (3.5-5.0) mmol/L Chloride (101-111) mmol/L Carbon Dioxide (21-32) mmol/L Anion Gap (6-13) BUN (6-20) mg/dL Creatinine (0.6-1.2) mg/dL Estimated GFR (MDRD) (>89) Glucose (70-100) mg/dL POC Whole Bld Glucose 87 (70 - 100) mg/dL Calcium (8.5-10.3) mg/dL Magnesium (1.7-2.8) mg/dL Total Bilirubin (0.2-1.0) mg/dL AST (10-42) IU/L ALT (10-60) IU/L Alkaline Phosphatase (42-121) IU/L Total Protein (6.7-8.2) g/dL Albumin (3.2-5.5) g/dL Globulin (2.1-4.2) g/dL Albumin/Globulin Ratio (1.0-2.2) Amylase (28-100) U/L Lipase (22-51) U/L Last Dose Date 04/30/2017 05/01/2017 Last Dose Time 17:00 00:25 Vancomycin Trough 5.5 (5.0-15.0) ug/mL Valproic Acid 70.3 ug/mL 05/01/17 05/01/17 04/30/17 Range/Units 05:10 05:10 20:47 WBC 13.5 H (4.8-10.8) x10^3/uL RBC 4.01 L (4.70-6.10) 10^6/uL Hgb 12.9 L (14.0-18.0) g/dL Hct 38.9 L (42.0-52.0) % MCV 96.8 H (80.0-94.0) fL MCH 32.1 H (27.0-31.0) pg MCHC 33.2 (32.0-36.0) g/dL RDW 15.3 H (12.0-15.0) % Plt Count 134 (130-450) 10^3/uL MPV 9.2 (7.4-11.4) fL Neut # Not Reportable Lymph # Not Reportable Dickens # Not Reportable Eos # Not Reportable Baso # Not Reportable Absolute Nucleated RBC Not Reportable Total Counted 100 Band Neuts % (Manual) 3 (0 - 10) % Nucleated RBC % Not Reportable Neutrophils # (Manual) 8.0 H (1.5-6.6) 10^3/uL Lymphocytes # (Manual) 4.1 H (1.5-3.5) 10^3/uL Monocytes # (Manual) 1.5 H (0.0-1.0) 10^3/uL Differential Comment MANUAL DIFFERENTIAL Platelet Estimate NORMAL (130-450,000) (NORMAL) RBC Morph Micro Appear NORMAL APPEARANCE (NORMAL) Sodium 138 (135-145) mmol/L Potassium 2.8 L (3.5-5.0) mmol/L Chloride 105 (101-111) mmol/L Carbon Dioxide 23 (21-32) mmol/L Anion Gap 10.0 (6-13) BUN 8 (6-20) mg/dL Creatinine 0.6 (0.6-1.2) mg/dL Estimated GFR (MDRD) 166 (>89) Glucose 86 (70-100) mg/dL POC Whole Bld Glucose 106 H (70 - 100) mg/dL Calcium 8.4 L (8.5-10.3) mg/dL Magnesium 2.0 (1.7-2.8) mg/dL Total Bilirubin 0.9 (0.2-1.0) mg/dL AST 57 H (10-42) IU/L ALT 26 (10-60) IU/L Alkaline Phosphatase 65 (42-121) IU/L Total Protein 6.6 L (6.7-8.2) g/dL Albumin 2.7 L (3.2-5.5) g/dL Globulin 3.9 (2.1-4.2) g/dL Albumin/Globulin Ratio 0.7 L (1.0-2.2) Amylase 174 H (28-100) U/L Lipase 79 H (22-51) U/L Last Dose Date Last Dose Time Vancomycin Trough (5.0-15.0) ug/mL Valproic Acid ug/mL 04/30/17 Range/Units 15:50 WBC (4.8-10.8) x10^3/uL RBC (4.70-6.10) 10^6/uL Hgb (14.0-18.0) g/dL Hct (42.0-52.0) % MCV (80.0-94.0) fL MCH (27.0-31.0) pg MCHC (32.0-36.0) g/dL RDW (12.0-15.0) % Plt Count (130-450) 10^3/uL MPV (7.4-11.4) fL Neut # Lymph # Dickens # Eos # Baso # Absolute Nucleated RBC Total Counted Band Neuts % (Manual) (0 - 10) % Nucleated RBC % Neutrophils # (Manual) (1.5-6.6) 10^3/uL Lymphocytes # (Manual) (1.5-3.5) 10^3/uL Monocytes # (Manual) (0.0-1.0) 10^3/uL Differential Comment Platelet Estimate (NORMAL) RBC Morph Micro Appear (NORMAL) Sodium (135-145) mmol/L Potassium (3.5-5.0) mmol/L Chloride (101-111) mmol/L Carbon Dioxide (21-32) mmol/L Anion Gap (6-13) BUN (6-20) mg/dL Creatinine (0.6-1.2) mg/dL Estimated GFR (MDRD) (>89) Glucose (70-100) mg/dL POC Whole Bld Glucose 96 (70 - 100) mg/dL Calcium (8.5-10.3) mg/dL Magnesium (1.7-2.8) mg/dL Total Bilirubin (0.2-1.0) mg/dL AST (10-42) IU/L ALT (10-60) IU/L Alkaline Phosphatase (42-121) IU/L Total Protein (6.7-8.2) g/dL Albumin (3.2-5.5) g/dL Globulin (2.1-4.2) g/dL Albumin/Globulin Ratio (1.0-2.2) Amylase (28-100) U/L Lipase (22-51) U/L Last Dose Date Last Dose Time Vancomycin Trough (5.0-15.0) ug/mL Valproic Acid ug/mL Assessment/Plan - Problem List (1) Pancreatitis Impression: (1) Pancreatitis Impression: consistently improved, no pain. Lipase and Amylase is down continue hydration clear diet now significant decrease of Lipase and Amylase. No vomiting, nausea, diarrhea. pain is good controlled add clear liquid diet continue IVF hydration monitor Lipase pain control vital and tele monitor Qualifiers: Chronicity: acute Pancreatitis type: drug induced Acute pancreatitis complication: unspecified Qualified Code(s): K85.30 - Drug induced acute pancreatitis without necrosis or infection (8) pneumonia no fever, and WBC is continue down. New CXR reveals stable continue antibiotic daily lab monitor tele, vital monitor (2) Pseudocyst of pancreas Impression: IVF, clear diet, continue monitor Amylase, follow up surgeon MRCP reviewed, called and consulted with surgeon Dr. Ocampo, will follow up Amylase to monitor Pseudocyst progress if it is in the healing process closely monitor pt, vital, tele, close monitor if infected and captured pseudocyst CT of abd reveal significant pseudocyst. elevated WBC, spot fever on last night. MRCP is pending, pt's vital stable, pain is in the control, without acute distress. will consult with surgeon after MRCP done check CEA to monitor neoplasma, order Amylase to monitor Pseudocyst progress if it is in the healing process closely monitor pt, vital, tele, close monitor if infected and captured pseudocyst (3) Acute kidney injury Impression: resolved improved after hydration, will continue hydration daily lab test monitor (4) HTN (hypertension) Impression: stable, continue to monitor with vital check hydralazine and Clonidine PRN vital monitor closely resume home meds add hydralazine and Clonidine PRN monitor with vital, tele (5) Disorganized schizophrenia Impression: stable, resume of home meds (6) Seizure Impression: seizure precaution test of phenytoin and valproic acid, WNL resume of home meds (7) Asthma Impression: stable, resume home meds (8) pneumonia no fever, and WBC is drop now continue antibiotic order another CXR to monitor tele, vital monitor (9) Hx of traumatic brain injury continue support, 24 hour caregiver with pt Qualifiers: Chronicity: acute Pancreatitis type: drug induced Acute pancreatitis complication: unspecified Qualified Code(s): K85.30 - Drug induced acute pancreatitis without necrosis or infection
[2017-05-01] MEDS: POLYETHYLENE GLYCOL 3350 17 GM PACKET PO SCH (14:23)
[2017-05-01] MEDS: HYDROCORTISONE 1% CREAM 28 GM TUBE TOP SCH ×2 (14:24→20:12)
[2017-05-01] MEDS: ATENOLOL 25 MG TABLET PO SCH (17:18)
[2017-05-01] MEDS: OLANZapine ODT 5 MG TABLET TL SCH (17:18)
[2017-05-01] MEDS: POTASSIUM CHLORIDE 20 MEQ TABLET PO SCH (20:12)
[2017-05-02] MEDS: SODIUM CHLORIDE 0.9% 1,000 ML IV SCH ×3 (02:34→20:59)
[2017-05-02] MEDS: PIPERACILLIN/TAZOBACTAM 3.375 GM in SODIUM CHLORIDE 0.9% MINIBAG 100 ML IV SCH ×4 (02:35→21:49)
[2017-05-02 05:23] LABS: BASOPHILS % (AUTO) 0.1 %; EOSINOPHILS % (AUTO) 0.2 %; HCT - HEMATOCRIT 38.1 % (42.0-52.0); HGB - HEMOGLOBIN 12.9 g/dL (14.0-18.0); MEAN CORPUSCULAR HEMOGLOBIN 32.5 pg (27.0-31.0); MEAN CORPUSCULAR VOLUME 95.7 fL (80.0-94.0); MEAN PLATELET VOLUME 8.7 fL (7.4-11.4); MONOCYTES % (AUTO) 14.6 %; NEUTROPHILS % (AUTO) 64.1 %; RED BLOOD COUNT 3.98 10^6/uL (4.70-6.10); RED CELL DISTRIBUTION WIDTH 15.6 % (12.0-15.0); UNCORRECTED WHITE BLOOD COUNT 11.8 x10^3/uL; WHITE BLOOD COUNT 11.8 x10^3/uL (4.8-10.8)
[2017-05-02 05:26] LABS: ALBUMIN/GLOBULIN RATIO 0.6 (1.0-2.2); BILIRUBIN,TOTAL 0.8 mg/dL (0.2-1.0); CALCIUM 8.7 mg/dL (8.5-10.3); CREATININE 0.6 mg/dL (0.6-1.2); POTASSIUM 2.9 mmol/L (3.5-5.0); TOTAL PROTEIN 6.9 g/dL (6.7-8.2)
[2017-05-02] MEDS: TAMSULOSIN 0.4 MG CAPSULE PO SCH (07:05)
[2017-05-02] MEDS: FLUoxetine 10 MG CAPSULE PO SCH (07:05)
[2017-05-02] MEDS: amLODIPine 5 MG TABLET PO SCH (07:05)
[2017-05-02 07:09] LABS: BAND NEUTROPHILS % (MANUAL) 2 %; LYMPHOCYTES % (MANUAL) 23 %; NEUTROPHILS % (MANUAL) 60 %; NP AUTO DIFFERENTIAL? YES; NP MAN DIFFERENTIAL? NO; PLATELET ESTIMATE, MANUAL NORMAL (130-450,000) (NORMAL); TOTAL CELLS COUNTED 100
[2017-05-02] MEDS: SODIUM CHLORIDE FLUSH 0.9% 10 ML SYRINGE IVP SCH ×3 (07:12→21:50)
[2017-05-02] MEDS: NICOTINE 14 MG PATCH TOP SCH (09:21)
[2017-05-02] MEDS: ASPIRIN EC 81 MG TABLET PO SCH (09:22)
[2017-05-02] MEDS: PHENYTOIN ER 100 MG CAPSULE PO SCH ×2 (09:22→18:41)
[2017-05-02] MEDS: MULTIVITAMIN TABLET PO SCH (09:22)
[2017-05-02] MEDS: POTASSIUM CHLORIDE 20 MEQ TABLET PO SCH (09:23)
[2017-05-02] MEDS: DIVALPROEX DR 250 MG TABLET PO SCH ×2 (09:23→18:41)
[2017-05-02] MEDS: POLYETHYLENE GLYCOL 3350 17 GM PACKET PO SCH (09:24)
[2017-05-02] MEDS: ENOXAPARIN 40 MG/0.4 ML SYRINGE SUBQ SCH (09:25)
[2017-05-02] MEDS: HYDROCORTISONE 1% CREAM 28 GM TUBE TOP SCH ×2 (09:29→20:19)
[2017-05-02] MEDS: POTASSIUM CHLOR 10 MEQ/100 ML 10 MEQ/100 ML BAG IV SCH ×4 (10:40→13:51)
--- NOTE | 2017-05-02 13:33 | PROVIDER PROGRESS NOTE ---
Subjective - Prog Note Date Prog Note Date: 05/02/17 - Subjective Pt reports feeling: Improved Subjective: pt state he feel good, no other complaint Current Medications - Current Medications Current Medications: Active Medications Acetaminophen (Tylenol) 650 mg PO Q4HR PRN PRN Reason: Pain or Fever > 38C (100.4F) Last Admin: 04/29/17 17:29 Dose: 650 mg Al Hydroxide/Mg Hydroxide (Mylanta Plus) 30 ml PO Q4H PRN PRN Reason: NEEDED PER PROVIDER ORDERS Amlodipine Besylate (Norvasc) 10 mg PO 0600 [facility]S [facility]CLUDE 234 BEDS AT [facility] Last Admin: 05/02/17 07:05 Dose: 10 mg Aspirin (Ecotrin) 81 mg PO DAILY COUNTS INCLUDE 234 BEDS AT THE [facility] Last Admin: 05/02/17 09:22 Dose: 81 mg Atenolol (Tenormin) 25 mg PO 1800 COUNTS [facility]CLUDE 234 BEDS AT THE [facility] Last Admin: 05/01/17 17:18 Dose: 25 mg Clonidine HCl (Catapres) 0.1 mg PO BID PRN PRN Reason: Hypertensive Emergency Last Admin: 04/28/17 09:28 Dose: 0.1 mg Divalproex Sodium (Depakote Dr) 1,750 mg PO 1800 COUNTS INCLUDE 234 BEDS AT THE [facility] Last Admin: 05/01/17 17:18 Dose: 1,750 mg Divalproex Sodium (Depakote Dr) 2,000 mg PO DAILY COUNTS INCLUDE 234 BEDS AT THE [facility] Last Admin: 05/02/17 09:23 Dose: 2,000 mg Enoxaparin Sodium (Lovenox) 40 mg SUBQ DAILY COUNTS INCLUDE 234 BEDS AT THE [facility] Last Admin: 05/02/17 09:25 Dose: 40 mg Fluoxetine HCl (Prozac) 20 mg PO 0600 COUNTS INCLUDE 234 BEDS AT THE [facility] Last Admin: 05/02/17 07:05 Dose: 20 mg Guaifenesin (Mucinex) 600 mg PO BID PRN PRN Reason: CONGESTION Hydralazine HCl (Apresoline Inj) 10 mg IVP DAILY PRN PRN Reason: Hypertensive Emergency Hydrocortisone (Hydrocortisone) 1 applic TOP BID COUNTS INCLUDE 234 BEDS AT THE [facility] Last Admin: 05/02/17 09:29 Dose: 1 applic Hydromorphone HCl (Dilaudid Inj Syringe) 0.5 mg IVP Q2HR PRN PRN Reason: Pain 8 to 10 Last Admin: 04/30/17 23:40 Dose: 0.5 mg Piperacillin Sod/Tazobactam (Sod 3.375 gm/ Sodium Chloride) 100 mls @ 200 mls/ hr IV Q6H COUNTS INCLUDE 234 BEDS AT THE [facility] Last Infusion: 05/02/17 10:41 Dose: Infused Sodium Chloride (Normal Saline 0.9%) 1,000 mls @ 125 mls/hr IV .Q8H COUNTS INCLUDE 234 BEDS AT THE [facility] Last Infusion: 05/02/17 07:53 Dose: 125 mls/hr Vancomycin HCl 1 gm/ Sodium (Chloride) 250 mls @ 167 mls/hr IV Q8H OZZIE Loperamide HCl (Imodium) 2 mg PO QID PRN PRN Reason: Diarrhea Loratadine (Claritin) 10 mg PO DAILY PRN PRN Reason: Allergy Symptoms Multivitamins (Theragran) 1 tab PO DAILYWM COUNTS INCLUDE 234 BEDS AT THE [facility] Last Admin: 05/02/17 09:22 Dose: 1 tab Nicotine (Nicoderm) 1 patch TOP DAILY COUNTS INCLUDE 234 BEDS AT THE [facility] Last Admin: 05/02/17 09:21 Dose: 1 patch Olanzapine (Zyprexa Odt) 15 mg TL 1800 COUNTS INCLUDE 234 BEDS AT THE [facility] Last Admin: 05/01/17 17:18 Dose: 15 mg Phenytoin Sodium (Dilantin) 200 mg PO DAILY COUNTS INCLUDE 234 BEDS AT THE [facility] Last Admin: 05/02/17 09:22 Dose: 200 mg Phenytoin Sodium (Dilantin) 100 mg PO 1800 COUNTS INCLUDE 234 BEDS AT [facility] Last Admin: 05/01/17 17:18 Dose: 100 mg Polyethylene Glycol (Miralax) 17 gm PO DAILY COUNTS INCLUDE 234 BEDS AT THE [facility] Last Admin: 05/02/17 09:24 Dose: Not Given Potassium Chloride (K-Dur) 20 meq PO DAILYWM COUNTS INCLUDE 234 BEDS AT THE [facility] Last Admin: 05/02/17 09:23 Dose: 20 meq Sodium Chloride (Normal Saline Flush 0.9%) 10 ml IVP PRN PRN PRN Reason: NEEDED PER PROVIDER ORDERS Last Admin: 04/28/17 12:47 Dose: 10 ml Sodium Chloride (Normal Saline Flush 0.9%) 10 ml IVP Q8HR COUNTS INCLUDE 234 BEDS AT THE [facility] Last Admin: 05/02/17 07:12 Dose: Not Given Sodium Chloride (Normal Saline) 3 ml INH PRN PRN PRN Reason: Levalbuterol treatment Last Admin: 04/29/17 02:50 Dose: 3 ml Tamsulosin HCl (Flomax) 0.4 mg PO 0600 COUNTS INCLUDE 234 BEDS AT THE [facility] Last Admin: 05/02/17 07:05 Dose: 0.4 mg Amlodipine Besylate 10 mg PO 0600 02/21/14 Atenolol 25 mg PO 1800 02/21/14 FLUoxetine [PROzac] 20 mg PO 0600 02/21/14 OLANZapine [ZyPREXA] 15 mg PO 1800 02/21/14 Alum-Mag Hydroxide [Mylanta] 30 ml PO Q4H PRN 05/22/16 Guaifenesin [Mucinex] 600 mg PO BID PRN 05/22/16 Loperamide [Imodium] 2 mg PO QID PRN 05/22/16 Multivitamin [Multiple Vitamins] 1 tab PO 1800 05/22/16 Tamsulosin [Flomax] 0.4 mg PO 0600 05/22/16 Divalproex [Arianna Bolton] 1,750 mg PO 1800 06/04/16 Divalproex [Arianna Bolton] 2,000 mg PO 0600 06/04/16 Loratadine [Claritin] 10 mg PO DAILY PRN 06/04/16 Acetaminophen 1 tab PO BID PRN 07/08/16 Aspirin [Aspir-Low] 81 mg PO DAILY 07/08/16 Phenytoin [Dilantin] 100 mg PO 1800 07/08/16 Polyethylene Glycol 3350 [Miralax] 17 gm PO DAILY PRN 07/08/16 Phenytoin [Dilantin] 200 mg PO 0600 08/06/16 Objective - Vital Signs/Intake & Output Reviewed Vital Signs: Yes Vital Signs: Vital Signs x48h Temp Pulse Resp BP Pulse Ox 05/02/17 12:27 37.1 C 81 20 136/60 H 95 05/02/17 09:00 36.7 C 97 20 171/116 H 95 Intake & Output: Intake & Output 04/29/17 04/30/17 05/01/17 05/02/17 23:59 23:59 23:59 23:59 Intake Total 4340.000 2708.333 4648.333 1393 Output Total 300 400 350 675 Balance 4040.000 2308.333 4298.333 718 - Objective General Appearance: positive: No acute distress, Alert. negative: Lethargic Eyes Bilateral: positive: Normal inspection, PERRL, No lid inflammation, Conjunctivae nml ENT: positive: ENT inspection nml, Pharynx nml, No signs of dehydration. negative: Purulent nasal drainage, Pharyngeal erythema, Oral lesions Neck: positive: Nml inspection, Thyroid nml, No JVD, Trachea midline. negative : Thyromegaly, Lymphadenopathy (R), Lymphadenopathy (L), Stiff neck, Carotid bruit, Swelling/bruising, Tracheal deviation Respiratory: positive: Chest non-tender, No respiratory distress, Breath sounds nml. negative: Wheezes, Rales, Rhonchi Cardiovascular: positive: Regular rate & rhythm, No murmur, Irregularly irregular. negative: Extrasystoles, Tachycardia, Bradycardia, Systolic murmur, Diastolic murmur Peripheral Pulses: 2+ Radial (R), 2+ Radial (L), 2+ Dorsalis pedis (R), 2+ Dorsalis pedis (L) Abdomen: positive: Non-tender, Nml bowel sounds, No distention. negative: Tenderness, Guarding, Rebound Back: positive: Nml inspection. negative: CVA tenderness (R), CVA tenderness (L ) Skin: positive: Color nml, No rash, Warm, Dry. negative: Cyanosis, Diaphoresis , Pallor Extremities: positive: Non-tender, Full ROM, Nml appearance. negative: Calf tenderness, Joint swelling, Martín's sign/cords Neurologic/Psychiatric: positive: Sensation nml, Mood/affect nml. negative: Sensory loss, Facial droop, Slurred/abnml speech, Depressed mood/affect - Lab Results Fish Bones: 05/02/17 05:00 05/02/17 05:00 Other Labs: Lab Results x24hrs 05/02/17 05/02/17 05/02/17 Range/Units 11:22 07:53 05:00 WBC 11.8 H (4.8-10.8) x10^3/uL RBC 3.98 L (4.70-6.10) 10^6/uL Hgb 12.9 L (14.0-18.0) g/dL Hct 38.1 L (42.0-52.0) % MCV 95.7 H (80.0-94.0) fL MCH 32.5 H (27.0-31.0) pg MCHC 34.0 (32.0-36.0) g/dL RDW 15.6 H (12.0-15.0) % Plt Count 151 (130-450) 10^3/uL MPV 8.7 (7.4-11.4) fL Neut # Not Reportable Lymph # Not Reportable [place] # Not Reportable Eos # Not Reportable Baso # Not Reportable Absolute Nucleated RBC Not Reportable Total Counted 100 Band Neuts % (Manual) 2 (0 - 10) % Metamyelocytes % 3 H ( - 0) % Myelocytes % 3 H ( - 0) % Nucleated RBC % Not Reportable Neutrophils # (Manual) 7.3 H (1.5-6.6) 10^3/uL Lymphocytes # (Manual) 2.7 (1.5-3.5) 10^3/uL Monocytes # (Manual) 1.1 H (0.0-1.0) 10^3/uL Differential Comment MANUAL DIFFERENTIAL Platelet Estimate NORMAL (130-450,000) (NORMAL) RBC Morph Micro Appear NORMAL APPEARANCE (NORMAL) Sodium (135-145) mmol/L Potassium (3.5-5.0) mmol/L Chloride (101-111) mmol/L Carbon Dioxide (21-32) mmol/L Anion Gap (6-13) BUN (6-20) mg/dL Creatinine (0.6-1.2) mg/dL Estimated GFR (MDRD) (>89) Glucose (70-100) mg/dL POC Whole Bld Glucose 99 99 (70 - 100) mg/dL Calcium (8.5-10.3) mg/dL Total Bilirubin (0.2-1.0) mg/dL AST (10-42) IU/L ALT (10-60) IU/L Alkaline Phosphatase (42-121) IU/L Total Protein (6.7-8.2) g/dL Albumin (3.2-5.5) g/dL Globulin (2.1-4.2) g/dL Albumin/Globulin Ratio (1.0-2.2) Amylase (28-100) U/L Lipase (22-51) U/L 05/02/17 Range/Units 05:00 WBC (4.8-10.8) x10^3/uL RBC (4.70-6.10) 10^6/uL Hgb (14.0-18.0) g/dL Hct (42.0-52.0) % MCV (80.0-94.0) fL MCH (27.0-31.0) pg MCHC (32.0-36.0) g/dL RDW (12.0-15.0) % Plt Count (130-450) 10^3/uL MPV (7.4-11.4) fL Neut # Lymph # [place] # Eos # Baso # Absolute Nucleated RBC Total Counted Band Neuts % (Manual) (0 - 10) % Metamyelocytes % ( - 0) % Myelocytes % ( - 0) % Nucleated RBC % Neutrophils # (Manual) (1.5-6.6) 10^3/uL Lymphocytes # (Manual) (1.5-3.5) 10^3/uL Monocytes # (Manual) (0.0-1.0) 10^3/uL Differential Comment Platelet Estimate (NORMAL) RBC Morph Micro Appear (NORMAL) Sodium 137 (135-145) mmol/L Potassium 2.9 L (3.5-5.0) mmol/L Chloride 103 (101-111) mmol/L Carbon Dioxide 23 (21-32) mmol/L Anion Gap 11.0 (6-13) BUN 8 (6-20) mg/dL Creatinine 0.6 (0.6-1.2) mg/dL Estimated GFR (MDRD) 166 (>89) Glucose 112 H (70-100) mg/dL POC Whole Bld Glucose (70 - 100) mg/dL Calcium 8.7 (8.5-10.3) mg/dL Total Bilirubin 0.8 (0.2-1.0) mg/dL AST 52 H (10-42) IU/L ALT 25 (10-60) IU/L Alkaline Phosphatase 81 (42-121) IU/L Total Protein 6.9 (6.7-8.2) g/dL Albumin 2.7 L (3.2-5.5) g/dL Globulin 4.2 (2.1-4.2) g/dL Albumin/Globulin Ratio 0.6 L (1.0-2.2) Amylase 198 H (28-100) U/L Lipase 117 H (22-51) U/L Assessment/Plan - Problem List (1) Pancreatitis Impression: (1) Pancreatitis Impression: pt's family told me she brought some food to pt on yesterday afternoon. I told her, do not give it pt now, and explain the reason. today pt's Amylase 198, Lipase 117. clearly explain pt's family pt's bowel need rest, no extra food to pt continue IVF, continue the current treatment will order CT to monitor the healing progress, plan D/C pt consistently improved, no pain. Lipase and Amylase is down continue hydration clear diet now significant decrease of Lipase and Amylase. No vomiting, nausea, diarrhea. pain is good controlled add clear liquid diet continue IVF hydration monitor Lipase pain control vital and tele monitor Qualifiers: Chronicity: acute Pancreatitis type: drug induced Acute pancreatitis complication: unspecified Qualified Code(s): K85.30 - Drug induced acute pancreatitis without necrosis or infection (2) pneumonia wbc down to 11.8, pt is no fever,chill, cough, room air with SO2 95% continue current treatment, plan D/C pt and continue antibiotics course. no fever, and WBC is continue down. New CXR reveals stable continue antibiotic daily lab monitor tele, vital monitor (3) Pseudocyst of pancreas Impression: IVF, continue monitor Amylase, follow up surgeon MRCP reviewed, called and consulted with surgeon Dr. Ocampo, will follow up Amylase to monitor Pseudocyst progress if it is in the healing process closely monitor pt, vital, tele, close monitor if infected and captured pseudocyst CT of abd reveal significant pseudocyst. elevated WBC, spot fever on last night. MRCP is pending, pt's vital stable, pain is in the control, without acute distress. will consult with surgeon after MRCP done check CEA to monitor neoplasma, order Amylase to monitor Pseudocyst progress if it is in the healing process closely monitor pt, vital, tele, close monitor if infected and captured pseudocyst (4) Acute kidney injury Impression: resolved improved after hydration, will continue hydration daily lab test monitor (5) HTN (hypertension) Impression: stable, continue to monitor with vital check hydralazine and Clonidine PRN vital monitor closely resume home meds add hydralazine and Clonidine PRN monitor with vital, tele (6) Disorganized schizophrenia Impression: stable, resume of home meds (7) Seizure Impression: seizure precaution test of phenytoin and valproic acid, WNL resume of home meds (8) Asthma Impression: stable, resume home meds (9) Hx of traumatic brain injury continue support, 24 hour caregiver with pt Qualifiers: Chronicity: acute Pancreatitis type: drug induced Acute pancreatitis complication: unspecified Qualified Code(s): K85.30 - Drug induced acute pancreatitis without necrosis or infection
[2017-05-02] MEDS: VANCOMYCIN INJ 1 GM in SODIUM CHLORIDE 0.9% 250 ML IV SCH ×2 (14:54→20:17)
[2017-05-02] MEDS: ATENOLOL 25 MG TABLET PO SCH (18:40)
[2017-05-02] MEDS: OLANZapine ODT 5 MG TABLET TL SCH (18:40)
[2017-05-03] MEDS: PIPERACILLIN/TAZOBACTAM 3.375 GM in SODIUM CHLORIDE 0.9% MINIBAG 100 ML IV SCH ×4 (03:56→22:38)
[2017-05-03] MEDS: VANCOMYCIN INJ 1 GM in SODIUM CHLORIDE 0.9% 250 ML IV SCH ×3 (04:30→21:27)
[2017-05-03] MEDS: FLUoxetine 10 MG CAPSULE PO SCH (05:49)
[2017-05-03] MEDS: amLODIPine 5 MG TABLET PO SCH (05:49)
[2017-05-03] MEDS: TAMSULOSIN 0.4 MG CAPSULE PO SCH (05:49)
[2017-05-03 06:00] LABS: BASOPHILS % (AUTO) 0.2 %; EOSINOPHILS % (AUTO) 0.2 %; HGB - HEMOGLOBIN 13.5 g/dL (14.0-18.0); LYMPHOCYTES % (AUTO) 20.6 %; MEAN CORPUSCULAR HEMOGLOBIN 32.3 pg (27.0-31.0); MEAN CORPUSCULAR HGB CONC 33.8 g/dL (32.0-36.0); MEAN CORPUSCULAR VOLUME 95.3 fL (80.0-94.0); MEAN PLATELET VOLUME 7.9 fL (7.4-11.4); MONOCYTES % (AUTO) 15.4 %; NEUTROPHILS % (AUTO) 63.6 %; RED BLOOD COUNT 4.19 10^6/uL (4.70-6.10); RED CELL DISTRIBUTION WIDTH 15.2 % (12.0-15.0); UNCORRECTED WHITE BLOOD COUNT 11.4 x10^3/uL; WHITE BLOOD COUNT 11.4 x10^3/uL (4.8-10.8)
[2017-05-03] MEDS: SODIUM CHLORIDE FLUSH 0.9% 10 ML SYRINGE IVP SCH ×3 (06:10→21:30)
[2017-05-03 06:21] LABS: ALBUMIN/GLOBULIN RATIO 0.6 (1.0-2.2); BILIRUBIN,TOTAL 1.1 mg/dL (0.2-1.0); CALCIUM 8.8 mg/dL (8.5-10.3); CREATININE 0.6 mg/dL (0.6-1.2); POTASSIUM 2.9 mmol/L (3.5-5.0); TOTAL PROTEIN 7.3 g/dL (6.7-8.2)
[2017-05-03 06:26] LABS: BAND NEUTROPHILS % (MANUAL) 2 %; LYMPHOCYTES % (MANUAL) 34 %; NEUTROPHILS % (MANUAL) 45 %; TOTAL CELLS COUNTED 100
[2017-05-03 06:27] LABS: NP AUTO DIFFERENTIAL? YES; NP MAN DIFFERENTIAL? NO; PLATELET ESTIMATE, MANUAL NORMAL (130-450,000) (NORMAL)
[2017-05-03] MEDS: SODIUM CHLORIDE 0.9% 1,000 ML IV SCH ×2 (06:56→18:52)
[2017-05-03] MEDS: POTASSIUM CHLOR 10 MEQ/100 ML 10 MEQ/100 ML BAG IV SCH ×6 (07:10→14:53)
[2017-05-03] MEDS ORDERED: POTASSIUM CHLORIDE 20 MEQ TABLET PO SCH (07:14)
[2017-05-03] MEDS ORDERED: POTASSIUM CHLOR 20 MEQ/100 ML 20 MEQ/100 ML BAG IV ONE (07:15)
[2017-05-03] MEDS ORDERED: IOPAMIDOL-300 100 ML VIAL ONE (07:36)
[2017-05-03] MEDS: POLYETHYLENE GLYCOL 3350 17 GM PACKET PO SCH (09:03)
[2017-05-03] MEDS: NICOTINE 14 MG PATCH TOP SCH (09:16)
[2017-05-03] MEDS: DIVALPROEX DR 250 MG TABLET PO SCH ×2 (09:16→17:10)
[2017-05-03] MEDS: ENOXAPARIN 40 MG/0.4 ML SYRINGE SUBQ SCH (09:16)
[2017-05-03] MEDS: MULTIVITAMIN TABLET PO SCH (09:17)
[2017-05-03] MEDS: POTASSIUM CHLORIDE 20 MEQ TABLET PO SCH ×3 (09:17→17:06)
[2017-05-03] MEDS: ASPIRIN EC 81 MG TABLET PO SCH (09:17)
[2017-05-03] MEDS: PHENYTOIN ER 100 MG CAPSULE PO SCH ×2 (09:17→17:06)
[2017-05-03] MEDS: HYDROCORTISONE 1% CREAM 28 GM TUBE TOP SCH ×2 (09:18→21:27)
[2017-05-03] MEDS ORDERED: SODIUM CHLORIDE 0.9% 100ML 100 ML IV ONE (11:53)
[2017-05-03] MEDS: SODIUM CHLORIDE FLUSH 0.9% 10 ML SYRINGE IVP PRN (12:48)
--- NOTE | 2017-05-03 16:34 | PROVIDER PROGRESS NOTE ---
Subjective - Prog Note Date Prog Note Date: 05/03/17 - Subjective Pt reports feeling: Improved Subjective: pt state he feel good. no chest pain, abdominal pain, nausea, vomiting, diarrhea. Current Medications - Current Medications Current Medications: Active Medications Acetaminophen (Tylenol) 650 mg PO Q4HR PRN PRN Reason: Pain or Fever > 38C (100.4F) Last Admin: 04/29/17 17:29 Dose: 650 mg Al Hydroxide/Mg Hydroxide (Mylanta Plus) 30 ml PO Q4H PRN PRN Reason: NEEDED PER PROVIDER ORDERS Amlodipine Besylate (Norvasc) 10 mg PO 0600 [facility] Last Admin: 05/03/17 05:49 Dose: 10 mg Aspirin (Ecotrin) 81 mg PO DAILY [facility] Last Admin: 05/03/17 09:17 Dose: 81 mg Atenolol (Tenormin) 25 mg PO 1800 [facility] Last Admin: 05/02/17 18:40 Dose: 25 mg Clonidine HCl (Catapres) 0.1 mg PO BID PRN PRN Reason: Hypertensive Emergency Last Admin: 04/28/17 09:28 Dose: 0.1 mg Divalproex Sodium (Depakote Dr) 1,750 mg PO 1800 [facility] Last Admin: 05/02/17 18:41 Dose: 1,750 mg Divalproex Sodium (Depakote Dr) 2,000 mg PO DAILY [facility] Last Admin: 05/03/17 09:16 Dose: 2,000 mg Enoxaparin Sodium (Lovenox) 40 mg SUBQ DAILY [facility] Last Admin: 05/03/17 09:16 Dose: 40 mg Fluoxetine HCl (Prozac) 20 mg PO 0600 [facility] Last Admin: 05/03/17 05:49 Dose: 20 mg Guaifenesin (Mucinex) 600 mg PO BID PRN PRN Reason: CONGESTION Hydralazine HCl (Apresoline Inj) 10 mg IVP DAILY PRN PRN Reason: Hypertensive Emergency Hydrocortisone (Hydrocortisone) 1 applic TOP BID [facility] Last Admin: 05/03/17 09:18 Dose: 1 applic Hydromorphone HCl (Dilaudid Inj Syringe) 0.5 mg IVP Q2HR PRN PRN Reason: Pain 8 to 10 Last Admin: 04/30/17 23:40 Dose: 0.5 mg Sodium Chloride (Normal Saline 0.9%) 1,000 mls @ 125 mls/hr IV .Q8H OZZIE Last Admin: 05/03/17 06:56 Dose: 125 mls/hr Vancomycin HCl 1 gm/ Sodium (Chloride) 250 mls @ 167 mls/hr IV Q8H [facility] Last Infusion: 05/03/17 16:02 Dose: Infused Piperacillin Sod/Tazobactam (Sod 3.375 gm/ Sodium Chloride) 100 mls @ 200 mls/ hr IV Q6H [facility] Last Infusion: 05/03/17 11:45 Dose: Infused Loperamide HCl (Imodium) 2 mg PO QID PRN PRN Reason: Diarrhea Loratadine (Claritin) 10 mg PO DAILY PRN PRN Reason: Allergy Symptoms Multivitamins (Theragran) 1 tab PO DAILYWM [facility] Last Admin: 05/03/17 09:17 Dose: 1 tab Nicotine (Nicoderm) 1 patch TOP DAILY [facility] Last Admin: 05/03/17 09:16 Dose: 1 patch Olanzapine (Zyprexa Odt) 15 mg TL 1800 [facility] Last Admin: 05/02/17 18:40 Dose: 15 mg Phenytoin Sodium (Dilantin) 200 mg PO DAILY [facility] Last Admin: 05/03/17 09:17 Dose: 200 mg Phenytoin Sodium (Dilantin) 100 mg PO 1800 [facility] Last Admin: 05/02/17 18:41 Dose: 100 mg Polyethylene Glycol (Miralax) 17 gm PO DAILY [facility] Last Admin: 05/03/17 09:03 Dose: Not Given Potassium Chloride (K-Dur) 20 meq PO TIDWM [facility] Last Admin: 05/03/17 12:02 Dose: 20 meq Sodium Chloride (Normal Saline Flush 0.9%) 10 ml IVP PRN PRN PRN Reason: NEEDED PER PROVIDER ORDERS Last Admin: 05/03/17 12:48 Dose: 10 ml Sodium Chloride (Normal Saline Flush 0.9%) 10 ml IVP Q8HR [facility] Last Admin: 05/03/17 14:49 Dose: Not Given Sodium Chloride (Normal Saline) 3 ml INH PRN PRN PRN Reason: Levalbuterol treatment Last Admin: 04/29/17 02:50 Dose: 3 ml Tamsulosin HCl (Flomax) 0.4 mg PO 0600 [facility] Last Admin: 05/03/17 05:49 Dose: 0.4 mg Amlodipine Besylate 10 mg PO 0600 02/21/14 Atenolol 25 mg PO 1800 02/21/14 FLUoxetine [PROzac] 20 mg PO 0600 02/21/14 OLANZapine [ZyPREXA] 15 mg PO 1800 02/21/14 Alum-Mag Hydroxide [Mylanta] 30 ml PO Q4H PRN 05/22/16 Guaifenesin [Mucinex] 600 mg PO BID PRN 05/22/16 Loperamide [Imodium] 2 mg PO QID PRN 05/22/16 Multivitamin [Multiple Vitamins] 1 tab PO 1800 05/22/16 Tamsulosin [Flomax] 0.4 mg PO 0600 05/22/16 Divalproex [Arianna Bolton] 1,750 mg PO 1800 06/04/16 Divalproex [Arianna Bolton] 2,000 mg PO 0600 06/04/16 Loratadine [Claritin] 10 mg PO DAILY PRN 06/04/16 Acetaminophen 1 tab PO BID PRN 07/08/16 Aspirin [Aspir-Low] 81 mg PO DAILY 07/08/16 Phenytoin [Dilantin] 100 mg PO 1800 07/08/16 Polyethylene Glycol 3350 [Miralax] 17 gm PO DAILY PRN 07/08/16 Phenytoin [Dilantin] 200 mg PO 0600 08/06/16 Objective - Vital Signs/Intake & Output Reviewed Vital Signs: Yes Vital Signs: Vital Signs x48h Temp Pulse Resp BP Pulse Ox 05/03/17 16:00 36.4 C L 110 H 17 138/106 H 97 05/03/17 12:05 36.7 C 103 H 20 141/101 H 95 05/03/17 08:55 36.6 C 95 20 164/98 H 94 Intake & Output: Intake & Output 04/30/17 05/01/17 05/02/17 05/03/17 23:59 23:59 23:59 23:59 Intake Total 2708.333 4648.333 2700 2300 Output Total 400 350 725 400 Balance 2308.333 4298.333 1974 1899 - Objective General Appearance: positive: No acute distress, Alert. negative: Lethargic Eyes Bilateral: positive: Normal inspection, PERRL. negative: No lid inflammation, Conjunctivae nml ENT: positive: ENT inspection nml, Pharynx nml, No signs of dehydration. negative: Purulent nasal drainage, Pharyngeal erythema, Oral lesions Neck: positive: Nml inspection, Thyroid nml, Trachea midline. negative: Thyromegaly, Lymphadenopathy (R), Lymphadenopathy (L), Kernig's sign, Carotid bruit, Swelling/bruising, Tracheal deviation Respiratory: positive: Chest non-tender, No respiratory distress, Breath sounds nml. negative: Wheezes, Rales, Rhonchi Cardiovascular: positive: Regular rate & rhythm, No murmur, No gallop. negative : Irregularly irregular, Extrasystoles, Tachycardia, Bradycardia, Systolic murmur, Diastolic murmur Peripheral Pulses: 2+ Radial (R), 2+ Radial (L), 2+ Dorsalis pedis (R), 2+ Dorsalis pedis (L) Abdomen: positive: Non-tender, Nml bowel sounds, No distention. negative: Tenderness, Guarding, Rebound, Abnml bowel sounds Back: positive: Nml inspection. negative: CVA tenderness (R), CVA tenderness (L ) Skin: positive: Color nml, No rash, Warm, Dry. negative: Cyanosis, Diaphoresis , Pallor, Skin rash Extremities: positive: Non-tender, Full ROM, Nml appearance. negative: Calf tenderness, Joint swelling, Martín's sign/cords Neurologic/Psychiatric: positive: Oriented x3, Motor nml, Sensation nml, Mood/ affect nml. negative: Weakness, Sensory loss, Facial droop, Slurred/abnml speech, Depressed mood/affect - Lab Results Fish Bones: 05/03/17 05:47 05/03/17 05:47 Other Labs: Lab Results x24hrs 05/03/17 05/03/17 05/03/17 Range/Units 11:36 06:23 05:47 WBC 11.4 H (4.8-10.8) x10^3/uL RBC 4.19 L (4.70-6.10) 10^6/uL Hgb 13.5 L (14.0-18.0) g/dL Hct 40.0 L (42.0-52.0) % MCV 95.3 H (80.0-94.0) fL MCH 32.3 H (27.0-31.0) pg MCHC 33.8 (32.0-36.0) g/dL RDW 15.2 H (12.0-15.0) % Plt Count 165 (130-450) 10^3/uL MPV 7.9 (7.4-11.4) fL Neut # Not Reportable Lymph # Not Reportable [place] # Not Reportable Eos # Not Reportable Baso # Not Reportable Absolute Nucleated RBC Not Reportable Total Counted 100 Band Neuts % (Manual) 2 (0 - 10) % Metamyelocytes % 2 H ( - 0) % Myelocytes % 2 H ( - 0) % Nucleated RBC % Not Reportable Neutrophils # (Manual) 5.4 (1.5-6.6) 10^3/uL Lymphocytes # (Manual) 3.9 H (1.5-3.5) 10^3/uL Monocytes # (Manual) 1.7 H (0.0-1.0) 10^3/uL Differential Comment MANUAL DIFFERENTIAL Platelet Estimate NORMAL (130-450,000) (NORMAL) RBC Morph Micro Appear NORMAL APPEARANCE (NORMAL) Sodium (135-145) mmol/L Potassium (3.5-5.0) mmol/L Chloride (101-111) mmol/L Carbon Dioxide (21-32) mmol/L Anion Gap (6-13) BUN (6-20) mg/dL Creatinine (0.6-1.2) mg/dL Estimated GFR (MDRD) (>89) Glucose (70-100) mg/dL POC Whole Bld Glucose 92 98 (70 - 100) mg/dL Calcium (8.5-10.3) mg/dL Total Bilirubin (0.2-1.0) mg/dL AST (10-42) IU/L ALT (10-60) IU/L Alkaline Phosphatase (42-121) IU/L Total Protein (6.7-8.2) g/dL Albumin (3.2-5.5) g/dL Globulin (2.1-4.2) g/dL Albumin/Globulin Ratio (1.0-2.2) Amylase (28-100) U/L Lipase (22-51) U/L 05/03/17 05/03/17 05/02/17 Range/Units 05:47 01:20 21:15 WBC (4.8-10.8) x10^3/uL RBC (4.70-6.10) 10^6/uL Hgb (14.0-18.0) g/dL Hct (42.0-52.0) % MCV (80.0-94.0) fL MCH (27.0-31.0) pg MCHC (32.0-36.0) g/dL RDW (12.0-15.0) % Plt Count (130-450) 10^3/uL MPV (7.4-11.4) fL Neut # Lymph # [place] # Eos # Baso # Absolute Nucleated RBC Total Counted Band Neuts % (Manual) (0 - 10) % Metamyelocytes % ( - 0) % Myelocytes % ( - 0) % Nucleated RBC % Neutrophils # (Manual) (1.5-6.6) 10^3/uL Lymphocytes # (Manual) (1.5-3.5) 10^3/uL Monocytes # (Manual) (0.0-1.0) 10^3/uL Differential Comment Platelet Estimate (NORMAL) RBC Morph Micro Appear (NORMAL) Sodium 133 L (135-145) mmol/L Potassium 2.9 L (3.5-5.0) mmol/L Chloride 102 (101-111) mmol/L Carbon Dioxide 22 (21-32) mmol/L Anion Gap 9.0 (6-13) BUN 8 (6-20) mg/dL Creatinine 0.6 (0.6-1.2) mg/dL Estimated GFR (MDRD) 166 (>89) Glucose 110 H (70-100) mg/dL POC Whole Bld Glucose 88 138 H (70 - 100) mg/dL Calcium 8.8 (8.5-10.3) mg/dL Total Bilirubin 1.1 H (0.2-1.0) mg/dL AST 41 (10-42) IU/L ALT 24 (10-60) IU/L Alkaline Phosphatase 88 (42-121) IU/L Total Protein 7.3 (6.7-8.2) g/dL Albumin 2.7 L (3.2-5.5) g/dL Globulin 4.6 H (2.1-4.2) g/dL Albumin/Globulin Ratio 0.6 L (1.0-2.2) Amylase 186 H (28-100) U/L Lipase 121 H (22-51) U/L Assessment/Plan - Problem List (1) Pancreatitis Impression: (1) Pancreatitis Impression: CT of abdomen to monitor pt today, is still pending, call CT department and left message. pt denies abdominal pain. no nausea, vomiting, or diarrhea, and tolerate the food. elevated Lipase and Amylase, vomiting and epigastria discomfort. continue NPO IVF hydration monitor Lipase pain control vital and tele monitor Qualifiers: Chronicity: acute Pancreatitis type: drug induced Acute pancreatitis complication: unspecified Qualified Code(s): K85.30 - Drug induced acute pancreatitis without necrosis or infection (2) Pseudocyst of pancreas Impression: Ct of abdomen, to monitor Pseudocyst healing. pt denies abd pain, n/v/d. and pt tolerate food CT of abd reveal significant pseudocyst. elevated WBC, spot fever on last night. add Zosyn, will check lactic acid MRCP is pending, pt's vital stable, pain is in the control, without acute distress. will consult with surgeon after MRCP done check CEA to monitor neoplasma, order Amylase to monitor Pseudocyst progress if it is in the healing process closely monitor pt, vital, tele, close monitor if infected and captured pseudocyst (3) pneumonia improved, WBC is down to 11.4. pt is also under treatment of pancreatitis no fever, chill, cough, room air with SO2 97% (4) Acute kidney injury Impression: resolved improved after hydration, will continue hydration daily lab test monitor (5) HTN (hypertension) Impression: stable, continue current treatment resume home meds add hydralazine and Clonidine PRN monitor with vital, tele (6) Disorganized schizophrenia Impression: stable, resume of home meds (7) Seizure Impression: stable, seizure precaution test of phenytoin and valproic acid, WNL resume of home meds (8) Asthma Impression: stable, resume home meds (9) Hx of traumatic brain injury stable (10) hypokalemia replacement of potassium, will recheck this afternoon. Qualifiers: Chronicity: acute Pancreatitis type: drug induced Acute pancreatitis complication: unspecified Qualified Code(s): K85.30 - Drug induced acute pancreatitis without necrosis or infection
[2017-05-03] MEDS: OLANZapine ODT 5 MG TABLET TL SCH (17:06)
[2017-05-03] MEDS: ATENOLOL 25 MG TABLET PO SCH (17:06)
[2017-05-03] MEDS ORDERED: IOPAMIDOL-300 100 ML VIAL IVP ONE ×2 (17:32)
--- NOTE | 2017-05-03 17:41 | CT Preliminary Report ---
Exam: CT ABDOMEN/PELVIS W/ IMPRESSION: 1. Slight interval decrease in pancreatitis related inflammatory changes. 2. Slight interval increase in size of now 5.8 cm cystic mass within the uncinate process of the panc reas thought to represent a pseudocyst. Follow-up imaging recommended to exclude cystic neoplasm. [facility] SITE ID: [id number]
--- NOTE | 2017-05-03 17:44 | CT Report ---
EXAM: CT ABDOMEN AND PELVIS EXAM DATE: 05/03/2017 12:42 PM. CLINICAL HISTORY: Pancreatitis, and pseudocyst. COMPARISONS: 04/27/2017 CT. TECHNIQUE: Routine helical CT imaging was performed through the abdomen and pelvis. IV contrast: 80 m L Isovue 300. Enteric contrast: No. Reconstructions: Coronal and sagittal. In accordance with CT protocol optimization, one or more of the following dose reduction techniques w ere utilized for this exam: automated exposure control, adjustment of mA and/or KV based on patient s ize, or use of iterative reconstructive technique. FINDINGS: Lung Bases: New, small bilateral pleural effusions left greater than right. Dependent opacities also seen in both lower lobes. Liver: Normal. No masses. Gallbladder/Bile Ducts: The gallbladder is distended. No biliary dilatation. Spleen: Normal. Pancreas: The pancreas appears slightly edematous compared to the previous exam. Peripancreatic infla mmatory changes have slightly improved. There is a persistent 5.2 x 5.8 cm unilocular cystic mass wit hin the uncinate process of the pancreas, previously measuring 4.5 x 4.7 cm. No pancreatic duct dilat ation. Adrenal Glands: Normal. Kidneys: Normal. No masses or hydronephrosis. Peritoneal Cavity/Bowel: Previously seen mild ascites has nearly resolved noting a small volume of re sidual fluid in the lower quadrants. No bowel obstruction or pneumoperitoneum. The appendix is well v isualized and normal. Pelvic Organs: Normal. The bladder and visualized pelvic organs are within normal limits. Vasculature: No aneurysms or other significant abnormality. Bones: No significant abnormality. Other: None. IMPRESSION: 1. Slight interval decrease in pancreatitis related inflammatory changes. 2. Slight interval increase in size of now 5.8 cm cystic mass within the uncinate process of the panc reas thought to represent a pseudocyst. Follow-up imaging recommended to exclude cystic neoplasm. [facility] Referring Provider Line: [phone] SITE ID: [id number]
[2017-05-04] MEDS: SODIUM CHLORIDE 0.9% 1,000 ML IV SCH ×3 (03:44→12:53)
[2017-05-04] MEDS: PIPERACILLIN/TAZOBACTAM 3.375 GM in SODIUM CHLORIDE 0.9% MINIBAG 100 ML IV SCH ×2 (03:46→09:05)
[2017-05-04] MEDS: VANCOMYCIN INJ 1 GM in SODIUM CHLORIDE 0.9% 250 ML IV SCH ×2 (04:18→12:47)
[2017-05-04] MEDS: FLUoxetine 10 MG CAPSULE PO SCH (05:33)
[2017-05-04] MEDS: TAMSULOSIN 0.4 MG CAPSULE PO SCH (05:33)
[2017-05-04] MEDS: amLODIPine 5 MG TABLET PO SCH (05:33)
[2017-05-04 05:43] LABS: ALBUMIN/GLOBULIN RATIO 0.6 (1.0-2.2); BASOPHILS % (AUTO) 0.5 %; BILIRUBIN,TOTAL 0.9 mg/dL (0.2-1.0); CALCIUM 8.4 mg/dL (8.5-10.3); CREATININE 0.7 mg/dL (0.6-1.2); EOSINOPHILS % (AUTO) 0.4 %; HCT - HEMATOCRIT 38.6 % (42.0-52.0); LYMPHOCYTES % (AUTO) 23.9 %; MAGNESIUM 1.8 mg/dL (1.7-2.8); MEAN CORPUSCULAR HEMOGLOBIN 32.2 pg (27.0-31.0); MEAN CORPUSCULAR HGB CONC 33.6 g/dL (32.0-36.0); MEAN CORPUSCULAR VOLUME 95.8 fL (80.0-94.0); MEAN PLATELET VOLUME 7.7 fL (7.4-11.4); MONOCYTES % (AUTO) 15.4 %; NEUTROPHILS % (AUTO) 59.8 %; POTASSIUM 3.5 mmol/L (3.5-5.0); RED BLOOD COUNT 4.03 10^6/uL (4.70-6.10); RED CELL DISTRIBUTION WIDTH 15.4 % (12.0-15.0); TOTAL PROTEIN 6.5 g/dL (6.7-8.2)
[2017-05-04] MEDS: SODIUM CHLORIDE FLUSH 0.9% 10 ML SYRINGE IVP SCH ×2 (05:55→13:16)
[2017-05-04 06:56] LABS: BAND NEUTROPHILS % (MANUAL) 3 %; LYMPHOCYTES % (MANUAL) 27 %; NEUTROPHILS % (MANUAL) 50 %; TOTAL CELLS COUNTED 100
[2017-05-04 06:57] LABS: NP AUTO DIFFERENTIAL? YES; NP MAN DIFFERENTIAL? NO; PLATELET ESTIMATE, MANUAL NORMAL (130-450,000) (NORMAL); PLATELET MORPHOLOGY NORMAL APPEARANCE (NORMAL)
[2017-05-04] MEDS: POTASSIUM CHLORIDE 20 MEQ TABLET PO SCH ×2 (08:56→12:50)
[2017-05-04] MEDS: HYDROCORTISONE 1% CREAM 28 GM TUBE TOP SCH (08:56)
[2017-05-04] MEDS: POLYETHYLENE GLYCOL 3350 17 GM PACKET PO SCH (08:56)
[2017-05-04] MEDS: PHENYTOIN ER 100 MG CAPSULE PO SCH (08:57)
[2017-05-04] MEDS: MULTIVITAMIN TABLET PO SCH (08:57)
[2017-05-04] MEDS: ASPIRIN EC 81 MG TABLET PO SCH (08:57)
[2017-05-04] MEDS: ENOXAPARIN 40 MG/0.4 ML SYRINGE SUBQ SCH (08:57)
[2017-05-04] MEDS: DIVALPROEX DR 250 MG TABLET PO SCH (08:57)
[2017-05-04] MEDS: NICOTINE 14 MG PATCH TOP SCH (09:05)
[2017-05-04 13:31] VITALS: BP 142/77
--- NOTE | 2017-05-04 13:56 | Discharge Plan ---
Discharge Plan Disposition: 01 Home, Self Care Condition: Stable Prescriptions: Amox/Clav 875/125 [Augmentin] 1 each PO Q12H #6 tablet Diet: Soft Activity Restrictions: Activity as Tolerated Shower Restrictions: No Driving Restrictions: Yes Weight Bearing: Full Weight Additional Instructions or Follow Up instructions: May see neurologist on tomorrow 05/05/17. May see PCP in one week, have blood work including potassium level, Lipase, Amylase level in one week, have CXR in one week. May follow up Dr. Zurdo Ocampo in three weeks for the image study to monitor the status of pancreatitis and pseudocyst. Follow-Up Care: [facility] - Medical No Smoking: If you smoke, Please STOP! Call for help. Follow-up with: Luis Enrique Hernandez MD [Primary Care Provider] -
--- NOTE | 2017-05-04 14:34 | DISCHARGE SUMMARY ---
"Discharge Summary Admit Date: 04/27/17 Discharge Date: 05/04/17 Discharging Provider: BOYCE Primary Care Provider: Luis Enrique Padilla Code Status: Attempt Resuscitation Condition at Discharge: Stable Discharge Disposition: 01 Home, Self Care Discharge Facility Name: home - DIAGNOSES Admission Diagnoses: (1) Pancreatitis (2) Pseudocyst of pancreas (3) Acute kidney injury (4) HTN (hypertension) (5) Disorganized schizophrenia (6) Seizure (7) Asthma (8) Hx of traumatic brain injury Discharge Diagnoses with Status of Each Condition: (1) Pancreatitis pt's Lipase from 720 is down to 121. pt denies abdominal pain, pt is tolerated food, no nausea, vomiting or diarrhea Pt is advised to see neurologist for discontinuing of medication Depakote. I discuss with pt's home health agency [facility]. (2) Pseudocyst of pancreas Pt's Amylase from 586 is down to 186. pt denies abdominal pain, pt is tolerated food, no nausea, vomiting or diarrhea Pt is advised to see neurologist for discontinuing of medication Depakote. I discuss with pt's home health agency [facility]. (3) pneumonia no fever, chill, cough. room air with SO2 97%. WBC is down to 10, normal arrange. continue the antibiotics course at home (4) Acute kidney injury resolved (5) HTN (hypertension) stable, continue PCP management (6) Disorganized schizophrenia stable, continue PCP management (7) Seizure stable, no seizure at hospital Pt is advised to see neurologist for discontinuing of medication Depakote. I discuss with pt's home health agency [facility]. (8) Asthma stable, continue PCP management (9) Hx of traumatic brain injury no acute, stable (10) hypokalemia resolved - HPI History of Present Illness: please refer from Ms. Daniels's HPI on 04/27/17 - CONSULTS | PROCEDURES Consultations: Dr. Zurdo Ocampo - HOSPITAL COURSE Hospital Course: pt was admitted for nausea, vomiting and abdominal discomfort. Pt was found pancreatitis and pseudocyst in the CT study. Pt was also found to have ST at 110 -120, acute kidney injury. Pt also developed Pneumonia at hospital. Pt was treated with NPO and IVF. The healing of acute pancreatitis and pseudocyst skaggs monitored daily lab, vital. Surgeon is consulted for pseudocyst. Antibiotics was used to treat pt's pneumonia. Pt's Lipase and Amylase from 700 an 500 more was down to about 100 after treatment. Pt denies abdominal pain. No nausea, vomiting, diarrhea. WBC was down to normal after treatment. Pt denies fever, chill, cough, SO2 97% at room air. Pt has home meds of 3700 mg Depakote daily for his seizure control. One of major side effects of Depakote is the cause of pancreatitis and pseudocyst. I discuss the case with pt's caregiver parking lot supervisor Lenard Oneal. The parking lot supervisor Lenard Oneal state she make appointment tomorrow to see pt's neurologist to discuss the discontinuing of Depakote. - ALLERGIES Allergies/Adverse Reactions: Allergies Allergy/AdvReac Type Severity Reaction Status Date / Time No Known Drug Allergies Allergy Verified 04/27/17 12:17 - MEDICATIONS Home Medications: Ambulatory Orders Medication Instructions Recorded Confirmed Amlodipine Besylate 10 mg PO 0600 02/21/14 04/27/17 Atenolol 25 mg PO 1800 02/21/14 04/27/17 FLUoxetine [PROzac] 20 mg PO 0600 02/21/14 04/27/17 OLANZapine [ZyPREXA] 15 mg PO 1800 02/21/14 04/27/17 Alum-Mag Hydroxide [Mylanta] 30 ml PO Q4H PRN 05/22/16 04/27/17 Guaifenesin [Mucinex] 600 mg PO BID PRN 05/22/16 04/27/17 Loperamide [Imodium] 2 mg PO QID PRN 05/22/16 04/27/17 Multivitamin [Multiple Vitamins] 1 tab PO 1800 05/22/16 04/27/17 Tamsulosin [Flomax] 0.4 mg PO 0600 05/22/16 04/27/17 Divalproex [Arianna Bolton] 1,750 mg PO 1800 06/04/16 04/27/17 Divalproex [Arianna Bolton] 2,000 mg PO 0600 06/04/16 04/27/17 Loratadine [Claritin] 10 mg PO DAILY PRN 06/04/16 04/27/17 Acetaminophen 1 tab PO BID PRN 07/08/16 04/27/17 Aspirin [Aspir-Low] 81 mg PO DAILY 07/08/16 04/27/17 Phenytoin [Dilantin] 100 mg PO 1800 07/08/16 04/27/17 Polyethylene Glycol 3350 [Miralax] 17 gm PO DAILY PRN 07/08/16 04/27/17 Phenytoin [Dilantin] 200 mg PO 0600 08/06/16 04/27/17 Amox/Clav 875/125 [Augmentin] 1 each PO Q12H #6 tablet 05/04/17 - PHYSICAL EXAM AT DISCHARGE General Appearance: positive: No acute distress, Alert. negative: Lethargic Eyes Bilateral: positive: Normal inspection, PERRL, No lid inflammation, Conjunctivae nml ENT: positive: ENT inspection nml, Pharynx nml, No signs of dehydration. negative: Purulent nasal drainage, Pharyngeal erythema, Oral lesions, Dry mucous membranes Neck: positive: Nml inspection, Thyroid nml, No JVD, Trachea midline. negative : Thyromegaly, Lymphadenopathy (R), Lymphadenopathy (L), Stiff neck, Carotid bruit, Swelling/bruising, Tracheal deviation Respiratory: positive: Chest non-tender, No respiratory distress, Breath sounds nml. negative: Wheezes, Rales, Rhonchi Cardiovascular: positive: Regular rate & rhythm, No murmur, No gallop. negative : Irregularly irregular, Extrasystoles, Tachycardia, Bradycardia, Systolic murmur, Diastolic murmur Peripheral Pulses: positive: 2+ Abdomen: positive: Non-tender, Nml bowel sounds, No distention. negative: Tenderness, Guarding, Rebound Back: positive: Nml inspection. negative: CVA tenderness (R), CVA tenderness (L ) Skin: positive: Color nml, No rash, Warm, Dry. negative: Cyanosis, Diaphoresis , Pallor, Skin rash Extremities: positive: Non-tender, Full ROM, Nml appearance. negative: Pedal edema, Calf tenderness, Joint swelling Neurologic/Psychiatric: positive: Motor nml, Sensation nml, Disoriented to place , Disoriented to time. negative: Disoriented to person, Sensory loss, Facial droop, Slurred/abnml speech, Depressed mood/affect - LABS Result Diagrams: 05/04/17 05:25 05/04/17 05:25 - FOLLOW UP Follow Up: Discuss with [facility], pt is advised to see neurologist on tomorrow 05/05/17 for the medication depakote, which could cause pt's pancreatitis and pseudocyst, to be discontinued. Pt is advised to see PCP in one week, and have blood test including potassium level, lipase, amylase level, Pt is advised to have CXR in one week to monitor the pneumonia, Pt is advised to follow up Dr. Zurdo Ocampo for image study to monitor the pancreatitis and pseudocyst status in three weeks, Pt is advised to resume [facility] service."
== END 2017-05-04 14:36 | disposition home or self-care (01) | DRG 438 ==
LOC: ED 10:24 → MS2 14:31
PROVIDERS: ADMIT Nurse Practitioner; ATTEND Nurse Practitioner Gerontology
DX: K85.30 Drug induced acute pancreatitis without necrosis or infection (principal); R10.10 Upper abdominal pain, unspecified; R11.2 Nausea with vomiting, unspecified; J18.9 Pneumonia, unspecified organism; G93.49 Other encephalopathy; K86.3 Pseudocyst of pancreas; N17.9 Acute kidney failure, unspecified; F31.9 Bipolar disorder, unspecified; F20.9 Schizophrenia, unspecified; F20.1 Disorganized schizophrenia; E87.6 Hypokalemia; F17.200 Nicotine dependence, unspecified, uncomplicated; R73.9 Hyperglycemia, unspecified; J44.9 Chronic obstructive pulmonary disease, unspecified; I10 Essential (primary) hypertension; G40.909 Epilepsy, unspecified, not intractable, without status epilepticus; J45.909 Unspecified asthma, uncomplicated; H54.7 Unspecified visual loss; Z87.820 Personal history of traumatic brain injury; Y95 Nosocomial condition; T42.6X5A Adverse effect of other antiepileptic and sedative-hypnotic drugs, initial encounter; F41.9 Anxiety disorder, unspecified; F70 Mild intellectual disabilities; F17.210 Nicotine dependence, cigarettes, uncomplicated; M19.90 Unspecified osteoarthritis, unspecified site; Z90.01 Acquired absence of eye; Y92.009 Unspecified place in unspecified non-institutional (private) residence as the place of occurrence of the external cause; Z79.82 Long term (current) use of aspirin; Z79.899 Other long term (current) drug therapy; Z91.81 History of falling; Z96.642 Presence of left artificial hip joint
CPT/HCPCS: 36415; 71010; 74177; 74181; 76705; 80053; 80061; 80164; 80185; 81001; 81003; 82150; 82378; 83605; 83690; 83735; 84132; 85025; 85651; 86140; 87040; 87086; 94640; 96374; 96375; 99283; 99285; J1170

== ENCOUNTER 2017-06-01 11:52 | Outpatient (CLI) | payer MEDICARE, MEDICAID ==
[2017-06-01] MEDS ORDERED: IOPAMIDOL-300 100 ML VIAL ONE (12:06)
[2017-06-01] MEDS ORDERED: IOPAMIDOL-300 50 ML VIAL ONE (12:06)
[2017-06-01] MEDS ORDERED: IOPAMIDOL-300 100 ML VIAL IVP ONE (15:12)
[2017-06-01] MEDS ORDERED: IOPAMIDOL-300 50 ML VIAL PO ONE (15:12)
--- NOTE | 2017-06-01 16:21 | CT Report ---
CT OF THE ABDOMEN AND PELVIS WITH CONTRAST: 06/01/2017 CLINICAL INDICATION: Followup pancreatic pseudocyst. TECHNIQUE: Axial CT images of the abdomen and pelvis were obtained with 100 mL of Isovue-300 intraven ously as well as oral contrast. COMPARISON: 05/03/2017. FINDINGS: Limited evaluation of the lung bases is unremarkable. ABDOMEN: The liver, spleen, right kidney and adrenal glands are unremarkable. The left kidney demonst rates a small cortical cyst. The cyst in the uncinate process of the pancreas has decreased significa ntly in size, now measuring 1.3 cm (previously 5.8 cm). The gallbladder is not dilated. No bowel dila tation, free gas, or free fluid is present. Inflammatory changes around the pancreas have resolved. N o abdominal adenopathy is seen. PELVIS: The appendix is seen in the right lower quadrant, and is normal in caliber. No pelvic adenopa thy or free fluid is present. The osseous structures demonstrate degenerative changes and previous left hip replacement. IMPRESSION: SIGNIFICANT INTERVAL DECREASE IN SIZE OF PANCREATIC PSEUDOCYST, NOW MEASURING 1.3 CM (ID EVIOUSLY 5.8 CM). RESOLUTION OF PERIPANCREATIC INFLAMMATORY CHANGES. In accordance with CT protocol optimization, one or more of the following dose reduction techniques w ere utilized for this exam: automated exposure control, adjustment of mA and/or KV based on patient size, or use of iterative reconstructive technique. JOB #: [id number] EXT JOB #:[id number]
== END 2017-06-01 11:53 | disposition home or self-care (01) ==
LOC: DI 11:52
PROVIDERS: ATTEND Family Medicine
DX: K86.3 Pseudocyst of pancreas (principal)
CPT/HCPCS: 74177; Q9967

== ENCOUNTER 2017-08-25 10:52 | Outpatient (CLI) | payer MEDICARE, MEDICAID ==
[2017-08-25 11:30] LABS: CREATININE 0.8 mg/dL (0.6-1.2)
[2017-08-25] MEDS ORDERED: IOPAMIDOL-300 100 ML VIAL ONE (11:38)
[2017-08-25] MEDS: IOPAMIDOL-300 100 ML VIAL IVP ONE (12:51)
--- NOTE | 2017-08-25 18:22 | CT Report ---
DATE OF SERVICE: 08/25/2017 CT ABDOMEN WITH AND WITHOUT CONTRAST: 08/25/2017 CLINICAL INDICATION: Pancreatitis, followup. COMPARISON: 06/01/[address] images of the abdomen were obtained prior to and following 100 mL Isovue 300 intravenously as well as water orally. In accordance with CT protocol optimization, one or more of the following dose reduction techniques were utilized for this exam: Automated exposure control, adjustment of mA and/or KV based on patient size, or use of iterative reconstructive technique. Limited evaluation of the lung bases is unremarkable. ABDOMEN: The hypodensity in the uncinate process of the pancreas is stable, measuring 1.3 cm. The remainder of the pancreas demonstrates normal enhancement. The liver, spleen, and adrenal glands are unremarkable. The kidneys demonstrate small cortical cysts. The gallbladder is not dilated. No bowel dilatation, free gas, or free fluid is present. Osseous structures demonstrate degenerative changes. IMPRESSION: STABLE RESIDUAL PSEUDOCYST IN THE UNCINATE PROCESS OF THE PANCREAS, MEASURING 1.3 CM. NO SIGNIFICANT INTERVAL CHANGE. TD: 08/25/2017 18:21
== END 2017-08-25 10:53 | disposition home or self-care (01) ==
LOC: DI 10:52
PROVIDERS: ATTEND Internal Medicine Gastroenterology
DX: K85.90 Acute pancreatitis without necrosis or infection, unspecified (principal); K86.3 Pseudocyst of pancreas
CPT/HCPCS: 36415; 74170; 82565; 84520; Q9967

== ENCOUNTER 2017-10-13 20:19 | Outpatient (CLI) | payer MEDICARE, MEDICAID | END 2017-10-13 20:20 | disposition home or self-care (01) | LOC: LAB.R 20:19 | PROVIDERS: ATTEND Family Medicine | DX: N39.0 Urinary tract infection, site not specified (principal) | CPT/HCPCS: 87086 ==

== ENCOUNTER 2017-10-21 10:15 | Outpatient (CLI) | payer MEDICARE, MEDICAID ==
[2017-10-21 19:20] LABS: GLUCOSE, URINE (UA) NEGATIVE (NEGATIVE); KETONES,URINE (UA) TRACE mg/dL (NEGATIVE); LEUKOCYTE ESTERASE, URINE NEGATIVE (NEGATIVE); NITRITE,URINE NEGATIVE (NEGATIVE); OCCULT BLOOD,URINE NEGATIVE (NEGATIVE); PROTEIN,URINE 30 mg/dL (NEGATIVE); UROBILINOGEN,URINE 0.2 (NORMAL) E.U./dL (NORMAL)
[2017-10-21 19:46] LABS: BACTERIA,URINE None Seen /HPF (None Seen); BILIRUBIN,URINE SMALL (NEGATIVE); CLARITY,URINE CLEAR (CLEAR); ICTOTEST,URINE POSITIVE; MUCUS,URINE Moderate Strands; RBC,URINE None Seen /HPF (0-5); SQUAMOUS EPITHELIAL CELL,UR FEW Squamous (<= Few)
== END 2017-10-21 10:16 | disposition home or self-care (01) ==
LOC: LAB.WCP 10:15
PROVIDERS: ATTEND Family Medicine
DX: N39.0 Urinary tract infection, site not specified (principal)
CPT/HCPCS: 81001; 87086

== ENCOUNTER 2017-10-29 08:00 | Outpatient (CLI) | payer MEDICARE, MEDICAID | END 2017-10-29 08:01 | disposition home or self-care (01) | LOC: LAB.WCP 08:00 | PROVIDERS: ATTEND Family Medicine | DX: R80.9 Proteinuria, unspecified (principal); R82.2 Biliuria | CPT/HCPCS: 81599; 82570; 84156 ==

== ENCOUNTER 2018-01-26 08:00 | Outpatient (CLI) | payer MEDICARE, MEDICAID ==
[2018-01-26 19:06] LABS: BASOPHILS % (AUTO) 0.4 %; EOSINOPHILS # (AUTO) 0.1 10^3/uL (0.0-0.7); EOSINOPHILS % (AUTO) 1.1 %; HGB - HEMOGLOBIN 14.1 g/dL (14.0-18.0); LYMPHOCYTES # (AUTO) 3.7 10^3/uL (1.5-3.5); LYMPHOCYTES % (AUTO) 41.4 %; MEAN CORPUSCULAR HEMOGLOBIN 31.5 pg (27.0-31.0); MEAN CORPUSCULAR HGB CONC 33.6 g/dL (32.0-36.0); MEAN CORPUSCULAR VOLUME 93.8 fL (80.0-94.0); MEAN PLATELET VOLUME 9.4 fL (7.4-11.4); MONOCYTES # (AUTO) 0.7 10^3/uL (0.0-1.0); MONOCYTES % (AUTO) 8.2 %; NEUTROPHILS # (AUTO) 4.3 10^3/uL (1.5-6.6); NEUTROPHILS % (AUTO) 48.9 %; PLT - PLATELET COUNT 213 10^3/uL (130-450); RED BLOOD COUNT 4.48 10^6/uL (4.70-6.10); RED CELL DISTRIBUTION WIDTH 14.3 % (12.0-15.0); WHITE BLOOD COUNT 8.8 x10^3/uL (4.8-10.8)
[2018-01-26 19:37] LABS: ALBUMIN/GLOBULIN RATIO 0.9 (1.0-2.2); ALKALINE PHOSPHATASE 163 IU/L (42-121); ALT ALANINE AMINOTRANSFERASE 20 IU/L (10-60); AST ASPARTATE AMINOTRANSFERASE 30 IU/L (10-42); BILIRUBIN,TOTAL 0.4 mg/dL (0.2-1.0); BUN - BLOOD UREA NITROGEN 14 mg/dL (6-20); CALCIUM 9.8 mg/dL (8.5-10.3); CARBON DIOXIDE - CO2 24 mmol/L (21-32); CHLORIDE 106 mmol/L (101-111); CREATININE 0.7 mg/dL (0.6-1.2); GFR - MDRD 139 (>89); GLUCOSE 111 mg/dL (70-100); PHENYTOIN (DILANTIN) 6.2 ug/mL; SODIUM 137 mmol/L (135-145); TOTAL PROTEIN 8.7 g/dL (6.7-8.2)
[2018-01-26 19:55] LABS: HB2 TOTAL 15.4 g/dL; HEMOGLOBIN A1C 0.66 g/dL; HEMOGLOBIN A1C % 6.1 % (4.6-6.2)
== END 2018-01-26 08:01 | disposition home or self-care (01) ==
LOC: LAB.WCP 08:00
PROVIDERS: ATTEND Family Medicine
DX: I10 Essential (primary) hypertension (principal); G40.909 Epilepsy, unspecified, not intractable, without status epilepticus; R73.01 Impaired fasting glucose
CPT/HCPCS: 36415; 80053; 80177; 80185; 83036; 84443; 85025

== ENCOUNTER 2018-05-07 08:19 | Outpatient (CLI) | payer MEDICARE, MEDICAID ==
[2018-05-07 12:54] LABS: ALBUMIN 4.1 g/dL (3.2-5.5); ALBUMIN/GLOBULIN RATIO 1.1 (1.0-2.2); ALKALINE PHOSPHATASE 171 IU/L (42-121); ALT ALANINE AMINOTRANSFERASE 21 IU/L (10-60); AST ASPARTATE AMINOTRANSFERASE 28 IU/L (10-42); BILIRUBIN,TOTAL 0.4 mg/dL (0.2-1.0); BUN - BLOOD UREA NITROGEN 10 mg/dL (6-20); CALCIUM 9.6 mg/dL (8.5-10.3); CARBON DIOXIDE - CO2 27 mmol/L (21-32); CHLORIDE 104 mmol/L (101-111); CREATININE 0.7 mg/dL (0.6-1.2); GFR - MDRD 138 (>89); GLUCOSE 96 mg/dL (70-100); SODIUM 139 mmol/L (135-145); TOTAL PROTEIN 7.9 g/dL (6.7-8.2)
[2018-05-07 13:01] LABS: VALPROIC ACID (DEPAKOTE) < 10.0 ug/mL
[2018-05-07 13:05] LABS: BASOPHILS % (AUTO) 0.5 %; EOSINOPHILS # (AUTO) 0.1 10^3/uL (0.0-0.7); EOSINOPHILS % (AUTO) 1.4 %; HGB - HEMOGLOBIN 14.5 g/dL (14.0-18.0); LYMPHOCYTES # (AUTO) 3.8 10^3/uL (1.5-3.5); LYMPHOCYTES % (AUTO) 47.3 %; MEAN CORPUSCULAR HEMOGLOBIN 31.8 pg (27.0-31.0); MEAN CORPUSCULAR HGB CONC 34.1 g/dL (32.0-36.0); MEAN CORPUSCULAR VOLUME 93.4 fL (80.0-94.0); MEAN PLATELET VOLUME 9.7 fL (7.4-11.4); MONOCYTES # (AUTO) 0.6 10^3/uL (0.0-1.0); MONOCYTES % (AUTO) 8.1 %; NEUTROPHILS # (AUTO) 3.4 10^3/uL (1.5-6.6); NEUTROPHILS % (AUTO) 42.7 %; PLT - PLATELET COUNT 213 10^3/uL (130-450); RED BLOOD COUNT 4.55 10^6/uL (4.70-6.10); RED CELL DISTRIBUTION WIDTH 14.7 % (12.0-15.0)
== END 2018-05-07 08:20 | disposition home or self-care (01) ==
LOC: LAB.WCP 08:19
PROVIDERS: ATTEND Nurse Practitioner Psychiatric/Mental Health
DX: F20.9 Schizophrenia, unspecified (principal)
CPT/HCPCS: 36415; 80053; 80164; 85025

== ENCOUNTER 2018-08-30 10:29 | Emergency (ER) | payer MEDICARE, MEDICAID ==
--- NOTE | 2018-08-30 11:40 | ED Physician Documentation ---
PD HPI URI - Stated complaint Stated Complaint: COUGH/DIFF BREATHING - Chief complaint Chief Complaint: Resp - History obtained from History obtained from: Patient - History of Present Illness Timing - onset: How many weeks ago (1) Timing duration: Weeks (1) Timing details: Gradual onset, Still present (worsened the past 1-2 days) Associated symptoms: Fever, Nasal congestion, Productive cough, Dyspnea. No: Ear pain, Sore throat, Hemoptysis, NVD Contributing factors: No: Sick contact, Immunocompromised, COPD / asthma Similar symptoms before: Has not had sx before Recently seen: Not recently seen Review of Systems Constitutional: reports: Chills, Myalgias. denies: Fever Nose: reports: Congestion. denies: Rhinorrhea / runny nose Throat: denies: Sore throat Cardiac: denies: Chest pain / pressure Respiratory: reports: Dyspnea, Cough, Wheezing GI: denies: Abdominal Pain, Nausea, Vomiting, Diarrhea : denies: Dysuria, Frequency Skin: denies: Rash PD PAST MEDICAL HISTORY - Past Medical History Past Medical History: Yes Cardiovascular: Hypertension, Other Respiratory: Asthma, Pneumonia Neuro: Seizure disorder Endocrine/Autoimmune: Other HEENT: Chronic vision loss Psych: Depression, Anxiety, Bipolar disorder, Schizophrenia Musculoskeletal: Osteoarthritis - Past Surgical History Past Surgical History: Yes General: Colonoscopy Ortho: Hip replacement HEENT: Cataracts - Present Medications Home Medications: Ambulatory Orders Medication Instructions Recorded Confirmed Amlodipine Besylate 10 mg PO 0600 02/21/14 04/27/17 Atenolol 25 mg PO 1800 02/21/14 08/30/18 FLUoxetine [PROzac] 20 mg PO 0600 02/21/14 08/30/18 OLANZapine [ZyPREXA] 15 mg PO 1800 02/21/14 08/30/18 Alum-Mag Hydroxide [Mylanta] 30 ml PO Q4H PRN 05/22/16 04/27/17 Guaifenesin [Mucinex] 600 mg PO BID PRN 05/22/16 08/30/18 Loperamide [Imodium] 2 mg PO QID PRN 05/22/16 08/30/18 Multivitamin [Multiple Vitamins] 1 tab PO 1800 05/22/16 08/30/18 Tamsulosin [Flomax] 0.4 mg PO 0600 05/22/16 08/30/18 Loratadine [Claritin] 10 mg PO DAILY PRN 06/04/16 08/30/18 Acetaminophen 1 tab PO BID PRN 07/08/16 04/27/17 Aspirin [Aspir-Low] 81 mg PO DAILY 07/08/16 08/30/18 Phenytoin [Dilantin] 100 mg PO 1800 07/08/16 08/30/18 Polyethylene Glycol 3350 [Miralax] 17 gm PO DAILY PRN 07/08/16 08/30/18 Phenytoin [Dilantin] 200 mg PO 0600 08/06/16 08/30/18 Albuterol Sulf [Ventolin Hfa 2 - 3 puffs INH Q4HR PRN #1 inhaler 08/30/18 Inhaler] Azithromycin [Zithromax] 0 mg PO DAILY #6 tablet 08/30/18 Benzonatate [Tessalon Perle] 100 mg PO TID PRN #30 capsule 08/30/18 Dexamethasone [Decadron] 4 mg PO DAILY #5 tablet 08/30/18 Levetiracetam [Keppra] 1,000 mg ORAL BID 08/30/18 08/30/18 - Allergies Allergies/Adverse Reactions: Allergies Allergy/AdvReac Type Severity Reaction Status Date / Time No Known Drug Allergies Allergy Verified 08/30/18 10:45 - Social History Does the pt smoke?: Yes Smoking Status: Current every day smoker Does the pt drink ETOH?: No Does the pt have substance abuse?: No - Immunizations Immunizations are current?: Yes - POLST Patient has POLST: No PD ED PE NORMAL - Vitals Vital signs reviewed: Yes - General General: Alert and oriented X 3, No acute distress, Well developed/nourished - HEENT HEENT: Ears normal, Pharynx benign - Neck Neck: Supple, no meningeal sign, No adenopathy, No JVD - Cardiac Cardiac: RRR (mildly tachy after just arriving, walking in to triage. ), No murmur - Respiratory Respiratory: No respiratory distress, Other (no coarse sounds heard, but does have exipirary wheezing. ). No: Clear bilaterally - Abdomen Abdomen: Soft, Non tender - Derm Derm: Normal color, Warm and dry - Extremities Extremities: No deformity, No tenderness to palpate, No edema, No calf tenderness / cord - Neuro Neuro: Alert and oriented X 3, No motor deficit, Normal speech Results - Vitals Vitals: Vital Signs - 24 hr 08/30/18 08/30/18 08/30/18 10:42 10:56 12:07 Temperature 36.3 C L Heart Rate 107 H 99 100 Respiratory 20 16 18 Rate Blood Pressure 141/104 H 123/98 H O2 Saturation 88 L 95 08/30/18 08/30/18 12:13 13:38 Temperature Heart Rate 94 105 H Respiratory 20 17 Rate Blood Pressure 119/94 H 131/100 H O2 Saturation 96 94 Oxygen O2 Source [With Activity] Room air O2 Source [Without Activity] Room air O2 Source Room air Oxygen Flow Rate 3 - Rads (name of study) chest xray Radiology: Prelim report reviewed (no infiltrates nor acute process), See rad report PD MEDICAL DECISION MAKING - ED course Complexity details: considered differential (feels better with neb treatment), d/w patient Departure - Departure Disposition: 01 Home, Self Care Clinical Impression: Upper respiratory infection Qualifiers: URI type: unspecified URI Qualified Code(s): J06.9 - Acute upper respiratory infection, unspecified Acute bronchitis Qualifiers: Bronchitis organism: unspecified organism Qualified Code(s): J20.9 - Acute bronchitis, unspecified Instructions: ED Bronchitis Asthmatic Follow-Up: Luis Enrique Hernandez MD [Primary Care Provider] - Prescriptions: Albuterol Sulf [Ventolin Hfa Inhaler] 2 - 3 puffs INH Q4HR PRN #1 inhaler PRN Reason: Shortness Of Air/Wheezing Azithromycin [Zithromax] 0 mg PO DAILY #6 tablet Benzonatate [Tessalon Perle] 100 mg PO TID PRN #30 capsule PRN Reason: Cough Dexamethasone [Decadron] 4 mg PO DAILY #5 tablet Comments: Drink lots of fluids. Use the albuterol inhaler 2-3 puffs 4 times a day regularly for the next 7 days or so and added times if needed for wheezing and cough. Decadron steroid anti-inflammatory will reduce coughing and take that daily for 5 more days. Zithromax antibiotic as directed for the 5 days. Add Tessalon if needed for cough. Recheck if not improved over the next several days or so. Return if worsened breathing. Discharge Date/Time: 08/30/18 14:38
[2018-08-30] MEDS: ALBUTEROL NEB 2.5 MG/3 ML INH STA (12:07)
[2018-08-30] MEDS: BENZONATATE 100 MG CAPSULE PO STA (12:09)
[2018-08-30] MEDS: ACETAMINOPHEN 325 MG TABLET PO STA (12:09)
[2018-08-30] MEDS: KETOROLAC 30 MG/ML VIAL IVP STA (12:11)
[2018-08-30] MEDS: DEXAMETHASONE 10 MG/ML VIAL IVP STA (12:11)
--- NOTE | 2018-08-30 12:54 | XRAY Report ---
Reason: cough and wheezing Procedure Date: 08/30/2018 Accession Number: [id number] / [id number] Procedure: XR - Chest 2 View X-Ray CPT Code: 39728 FULL RESULT: EXAM: CHEST RADIOGRAPHY EXAM DATE: 08/30/2018 12:43 PM. CLINICAL HISTORY: Cough and wheezing. COMPARISON: CHEST 1 VIEW 04/30/2017 8:04 AM. TECHNIQUE: 2 views. FINDINGS: Lungs/Pleura: No focal opacities evident. No pleural effusion. No pneumothorax. Normal volumes. Mediastinum: Heart and mediastinal contours are unremarkable. Other: None. IMPRESSION: Normal 2-view chest radiography. [facility]
[2018-08-30 13:39] VITALS: BP 131/100
== END 2018-08-30 14:38 | disposition home or self-care (01) ==
LOC: ED 10:29
DX: J06.9 Acute upper respiratory infection, unspecified (principal); J20.9 Acute bronchitis, unspecified; I10 Essential (primary) hypertension; Z96.649 Presence of unspecified artificial hip joint; F17.200 Nicotine dependence, unspecified, uncomplicated
CPT/HCPCS: 71046; 94640; 96374; 99283; A9270

== ENCOUNTER 2018-11-19 11:15 | Outpatient (CLI) | payer MEDICARE, MEDICAID ==
--- NOTE | 2018-11-19 16:22 | XRAY Report ---
Reason: LUMBAGO WITH SCIATICA Procedure Date: 11/19/2018 Accession Number: [id number] / [id number] Procedure: WCP - Lumbar Spine 2 View CPT Code: FULL RESULT: EXAM: LUMBOSACRAL SPINE RADIOGRAPHY EXAM DATE: 11/19/2018 11:11 AM. CLINICAL HISTORY: Bilateral radiculopathy. COMPARISONS: ABDOMEN W/WO 08/25/2017 11:46 AM. TECHNIQUE: 2 views. FINDINGS: Alignment: Normal. No spondylolisthesis or scoliosis. Bones: Five [id number] lumbar vertebral bodies are present. No fractures or bone lesions. Disks: Only minimal disk space narrowing developing at the L2-L3 level with small periarticular osteophytes. More minimal disease without disk space loss present at L1-L2 and L3-L5 levels. Facets: No degenerative changes. Sacroiliac Joints: Unremarkable. Soft Tissues: Normal. The visualized bowel gas pattern is normal. IMPRESSION: 1. Mild L2-L3 degenerative disk disease as before with slight disk space narrowing. No significant interval change. 2. More minimal degenerative disk disease at the remaining levels from L1-L5. [facility]
== END 2018-11-19 11:16 | disposition home or self-care (01) ==
LOC: DI.WCP 11:15
PROVIDERS: ATTEND Family Medicine
DX: M51.36 Other intervertebral disc degeneration, lumbar region (principal)
CPT/HCPCS: 72100

== ENCOUNTER 2018-12-09 10:21 | Outpatient (CLI) | payer MEDICARE, MEDICAID ==
[2018-12-09 18:55] LABS: BASOPHILS % (AUTO) 0.4 %; EOSINOPHILS # (AUTO) 0.1 10^3/uL (0.0-0.7); EOSINOPHILS % (AUTO) 1.3 %; HGB - HEMOGLOBIN 14.3 g/dL (14.0-18.0); LYMPHOCYTES # (AUTO) 3.7 10^3/uL (1.5-3.5); LYMPHOCYTES % (AUTO) 46.8 %; MEAN CORPUSCULAR HEMOGLOBIN 31.2 pg (27.0-31.0); MEAN CORPUSCULAR HGB CONC 33.5 g/dL (32.0-36.0); MEAN CORPUSCULAR VOLUME 93.2 fL (80.0-94.0); MEAN PLATELET VOLUME 9.6 fL (7.4-11.4); MONOCYTES # (AUTO) 0.6 10^3/uL (0.0-1.0); MONOCYTES % (AUTO) 7.2 %; NEUTROPHILS # (AUTO) 3.5 10^3/uL (1.5-6.6); NEUTROPHILS % (AUTO) 44.3 %; PLT - PLATELET COUNT 223 10^3/uL (130-450); RED CELL DISTRIBUTION WIDTH 14.6 % (12.0-15.0); WHITE BLOOD COUNT 7.9 x10^3/uL (4.8-10.8)
[2018-12-09 19:40] LABS: ALBUMIN/GLOBULIN RATIO 0.9 (1.0-2.2); ALKALINE PHOSPHATASE 159 IU/L (42-121); ALT ALANINE AMINOTRANSFERASE 20 IU/L (10-60); AST ASPARTATE AMINOTRANSFERASE 27 IU/L (10-42); BILIRUBIN,TOTAL 0.5 mg/dL (0.2-1.0); BUN - BLOOD UREA NITROGEN 9 mg/dL (6-20); CALCIUM 9.5 mg/dL (8.5-10.3); CARBON DIOXIDE - CO2 23 mmol/L (21-32); CHLORIDE 101 mmol/L (101-111); CHOL/HDL RATIO 3.3 (<5.0); CHOLESTEROL 170 mg/dL; CREATININE 0.7 mg/dL (0.6-1.2); GFR - MDRD 138 (>89); GLUCOSE 84 mg/dL (70-100); HDL CHOLESTEROL 52 mg/dL; LDL CHOLESTEROL,CALCULATED 91 mg/dL; LDL/HDL RATIO 1.8 (<3.6); PHENYTOIN (DILANTIN) 8.4 ug/mL; SODIUM 139 mmol/L (135-145); TOTAL PROTEIN 8.3 g/dL (6.7-8.2); VLDL CHOLESTEROL 27 mg/dL
== END 2018-12-09 10:22 | disposition home or self-care (01) ==
LOC: LAB.WCP 10:21
PROVIDERS: ATTEND Family Medicine
DX: J20.9 Acute bronchitis, unspecified (principal); I10 Essential (primary) hypertension; R56.9 Unspecified convulsions; F29 Unspecified psychosis not due to a substance or known physiological condition; R73.01 Impaired fasting glucose; R80.9 Proteinuria, unspecified; E78.5 Hyperlipidemia, unspecified
CPT/HCPCS: 36415; 80053; 80061; 80177; 80185; 83721; 84443; 85025

== ENCOUNTER 2020-06-20 08:00 | Outpatient (CLI) | payer MEDICARE, MEDICAID ==
[2020-06-20 16:19] LABS: BILIRUBIN,URINE NEGATIVE (NEGATIVE); GLUCOSE, URINE (UA) NEGATIVE (NEGATIVE); KETONES,URINE (UA) NEGATIVE (NEGATIVE); LEUKOCYTE ESTERASE, URINE NEGATIVE (NEGATIVE); NITRITE,URINE NEGATIVE (NEGATIVE); OCCULT BLOOD,URINE NEGATIVE (NEGATIVE); PH,URINE 5.5 PH (5.0-7.5); PROTEIN,URINE NEGATIVE (NEGATIVE); UROBILINOGEN,URINE 0.2 (NORMAL) E.U./dL (NORMAL)
[2020-06-20 16:22] LABS: CLARITY,URINE CLEAR (CLEAR)
== END 2020-06-20 23:59 | disposition home or self-care (01) ==
LOC: LAB.R 08:00
PROVIDERS: ATTEND Family Medicine
DX: R97.20 Elevated prostate specific antigen [PSA] (principal); R80.9 Proteinuria, unspecified
CPT/HCPCS: 81001; 81003; 87086

== ENCOUNTER 2021-02-15 08:00 | Outpatient (CLI) | payer MEDICARE, MEDICAID ==
[2021-02-15 12:12] LABS: BASOPHILS # (AUTO) 0.1 10^3/uL (0.0-0.1); BASOPHILS % (AUTO) 0.7 %; EOSINOPHILS # (AUTO) 0.2 10^3/uL (0.0-0.7); EOSINOPHILS % (AUTO) 2.4 %; HCT - HEMATOCRIT 44.8 % (42.0-52.0); HGB - HEMOGLOBIN 14.9 g/dL (14.0-18.0); LYMPHOCYTES # (AUTO) 2.8 10^3/uL (1.5-3.5); LYMPHOCYTES % (AUTO) 41.2 %; MEAN CORPUSCULAR HEMOGLOBIN 31.2 pg (27.0-31.0); MEAN CORPUSCULAR HGB CONC 33.3 g/dL (32.0-36.0); MEAN CORPUSCULAR VOLUME 93.7 fL (80.0-94.0); MEAN PLATELET VOLUME 11.4 fL (7.4-11.4); MONOCYTES # (AUTO) 0.6 10^3/uL (0.0-1.0); MONOCYTES % (AUTO) 8.1 %; NEUTROPHILS # (AUTO) 3.2 10^3/uL (1.5-6.6); NEUTROPHILS % (AUTO) 47.2 %; PLT - PLATELET COUNT 218 10^3/uL (130-450); RED BLOOD COUNT 4.78 10^6/uL (4.70-6.10); RED CELL DISTRIBUTION WIDTH 13.8 % (12.0-15.0); WHITE BLOOD COUNT 6.8 x10^3/uL (4.8-10.8)
[2021-02-15 12:30] LABS: ESTIMATED AVERAGE GLUCOSE 126 mg/dL (70-100)
[2021-02-15 12:42] LABS: ALBUMIN 4.3 g/dL (3.2-5.5); ALBUMIN/GLOBULIN RATIO 1.1 (1.0-2.2); ALKALINE PHOSPHATASE 138 IU/L (42-121); ALT ALANINE AMINOTRANSFERASE 17 IU/L (10-60); AST ASPARTATE AMINOTRANSFERASE 19 IU/L (10-42); BILIRUBIN,TOTAL 0.7 mg/dL (0.2-1.0); BUN - BLOOD UREA NITROGEN 10 mg/dL (6-20); CALCIUM 9.6 mg/dL (8.5-10.3); CARBON DIOXIDE - CO2 23 mmol/L (21-32); CHLORIDE 107 mmol/L (101-111); CHOLESTEROL 189 mg/dL; CREATININE 0.8 mg/dL (0.6-1.2); GFR - MDRD 118 (>89); GLUCOSE 110 mg/dL (70-100); HDL CHOLESTEROL 47 mg/dL; LDL CHOLESTEROL,CALCULATED 117 mg/dL; LDL/HDL RATIO 2.5 (<3.6); POTASSIUM 4.2 mmol/L (3.5-5.0); SODIUM 140 mmol/L (135-145); TOTAL PROTEIN 8.1 g/dL (6.7-8.2); TRIGLYCERIDES 126 mg/dL; VLDL CHOLESTEROL 25 mg/dL
[2021-02-15 12:46] LABS: THYROID STIMULATING HORMONE 1.84 uIU/mL (0.34-5.60)
== END 2021-02-15 23:59 | disposition home or self-care (01) ==
LOC: LAB.WCP 08:00
PROVIDERS: ATTEND Family Medicine
DX: I10 Essential (primary) hypertension (principal); R73.03 Prediabetes; Z12.5 Encounter for screening for malignant neoplasm of prostate; G40.909 Epilepsy, unspecified, not intractable, without status epilepticus; E78.5 Hyperlipidemia, unspecified
CPT/HCPCS: 36415; 80053; 80061; 83036; 84443; 85025; G0103; 83721; 84153

== ENCOUNTER 2021-03-08 11:30 | Outpatient (CLI) | payer MEDICARE, MEDICAID | END 2021-03-08 11:31 | disposition EMS.NT | LOC: EMS 11:30 | DX: R05 Cough (principal); R06.00 Dyspnea, unspecified; R68.83 Chills (without fever) ==

== ENCOUNTER 2021-03-09 14:57 | Emergency (ER) | payer MEDICARE, MEDICAID ==
[2021-03-09] MEDS ORDERED: predniSONE 20 MG TABLET PO STA (15:35)
[2021-03-09] MEDS ORDERED: IPRATROPIUM/ALBUTEROL 3 ML NEB INH STA (15:35)
[2021-03-09] MEDS ORDERED: ALBUTEROL 1 PUFF INH STA ×2 (15:41→17:12)
--- NOTE | 2021-03-09 15:41 | ED Physician Documentation ---
History of Present Illness - Stated complaint Stated Complaint: SOA/COUGH - Chief complaint Chief Complaint: Resp - History obtained from History obtained from: Patient, Caregiver - History of Present Illness Timing: How many weeks ago (1) Pain level max: 0 Pain level now: 0 - Additonal information Additional information: Patient is a 66-year-old male who smokes about a pack a day. He is vaccinated for his Covid status. He states he has had fevers, cough, chills for the past week. Increasing wheezing and difficulty breathing. Has not used inhalers in the past. Better with rest. Worse with exertion. no chest pain. Review of Systems Constitutional: reports: Fever (subjective) Nose: reports: Rhinorrhea / runny nose, Congestion Throat: denies: Sore throat Cardiac: denies: Chest pain / pressure Respiratory: reports: Dyspnea, Cough, Wheezing GI: denies: Abdominal Pain, Nausea, Vomiting, Diarrhea Skin: denies: Rash Musculoskeletal: denies: Neck pain, Back pain Neurologic: denies: Headache PD PAST MEDICAL HISTORY - Past Medical History Cardiovascular: Hypertension, Other Respiratory: Asthma, Pneumonia Neuro: Seizure disorder Endocrine/Autoimmune: Other HEENT: Chronic vision loss Psych: Depression, Anxiety, Bipolar disorder, Schizophrenia Musculoskeletal: Osteoarthritis - Past Surgical History Past Surgical History: Yes General: Colonoscopy Ortho: Hip replacement HEENT: Cataracts - Present Medications Home Medications: Ambulatory Orders Medication Instructions Recorded Confirmed Amlodipine Besylate 10 mg PO 0600 02/21/14 04/27/17 FLUoxetine [PROzac] 20 mg PO 0602/21/14 08/30/18 OLANZapine [ZyPREXA] 15 mg PO 179902/21/14 08/30/18 atenoloL [Atenolol] 25 mg PO 1800 02/21/14 08/30/18 Alum-Mag Hydroxide [Mylanta] 30 ml PO Q4H PRN 05/22/16 04/27/17 Guaifenesin [Mucinex] 600 mg PO BID PRN 05/22/16 08/30/18 Loperamide [Imodium] 2 mg PO QID PRN 05/22/16 08/30/18 Multivitamin [Multiple Vitamins] 1 tab PO 1800 05/22/16 08/30/18 Tamsulosin [Flomax] 0.4 mg PO 0600 05/22/16 08/30/18 Loratadine [Claritin] 10 mg PO DAILY PRN 06/04/16 08/30/18 Acetaminophen 1 tab PO BID PRN 07/08/16 04/27/17 Aspirin [Aspir-Low] 81 mg PO DAILY 07/08/16 08/30/18 Phenytoin [Dilantin] 100 mg PO 1800 07/08/16 08/30/18 polyethylene glycoL 3350 [Miralax] 17 gm PO DAILY PRN 07/08/16 08/30/18 Phenytoin [Dilantin] 200 mg PO 0600 08/06/16 08/30/18 Albuterol Sulf [Ventolin Hfa 2 - 3 puffs INH Q4HR PRN #1 inhaler 08/30/18 Inhaler] Azithromycin [Zithromax] 0 mg PO DAILY #6 tablet 08/30/18 Benzonatate [Tessalon Perle] 100 mg PO TID PRN #30 capsule 08/30/18 Levetiracetam [Keppra] 1,000 mg ORAL BID 08/30/18 08/30/18 dexAMETHasone [Decadron] 4 mg PO DAILY #5 tablet 08/30/18 Albuterol Sulf [Ventolin Hfa 1 - 2 puffs INH Q4HR PRN #1 inhaler 03/09/21 Inhaler] Azithromycin [Zithromax] 250 mg PO DAILY #4 tablet 03/09/21 Benzonatate [Tessalon] 200 mg PO TID PRN #30 cap 03/09/21 Doxycycline Hyclate 100 mg PO BID #20 tab 03/09/21 predniSONE [Deltasone] 10 mg PO [id number] #42 tab 03/09/21 - Allergies Allergies/Adverse Reactions: Allergies Allergy/AdvReac Type Severity Reaction Status Date / Time No Known Drug Allergies Allergy Verified 03/09/21 15:07 - Social History Does the pt smoke?: Yes Smoking Status: Current every day smoker Does the pt drink ETOH?: No Does the pt have substance abuse?: No - Immunizations Immunizations are current?: Yes - POLST Patient has POLST: No PD ED PE NORMAL - Vitals Vital signs reviewed: Yes - General General: Alert and oriented X 3, No acute distress - HEENT HEENT: Moist mucous membranes - Neck Neck: Supple, no meningeal sign - Cardiac Cardiac: RRR, Strong equal pulses - Respiratory Respiratory: No respiratory distress, Other (wheezing B) - Abdomen Abdomen: Soft, Non tender, Non distended - Derm Derm: Warm and dry - Neuro Neuro: Alert and oriented X 3 - Psych Psych: Normal mood, Normal affect Results - Vitals Vitals: Vital Signs - 24 hr 03/09/21 03/09/21 03/09/21 15:00 16:00 17:07 Temperature 37.3 C 37.1 C Heart Rate 85 104 H 104 H Respiratory 15 32 H 30 H Rate Blood Pressure 136/100 H 119/109 H O2 Saturation 99 93 03/09/21 17:34 Temperature Heart Rate 95 Respiratory 32 H Rate Blood Pressure O2 Saturation Oxygen O2 Source [] Room air O2 Source [] Room air O2 Source Room air - Labs Labs: Laboratory Tests 03/09/21 15:55 Nasal Adenovirus (PCR) NOT DETECTED Nasal B. parapertussis DNA (PCR) NOT DETECTED Nasal Coronavir 229E PCR NOT DETECTED Nasal Coronavir HKU1 PCR NOT DETECTED Nasal Coronavir NL63 PCR NOT DETECTED Nasal Coronavir OC43 PCR NOT DETECTED Nasal Enterovir/Rhinovir PCR NOT DETECTED Nasal Influenza B PCR NOT DETECTED Nasal Influenza A PCR NOT DETECTED Nasal Parainfluen 1 PCR NOT DETECTED Nasal Parainfluen 2 PCR NOT DETECTED Nasal Parainfluen 3 PCR DETECTED A Nasal Parainfluen 4 PCR NOT DETECTED Nasal RSV (PCR) NOT DETECTED Nasal B.pertussis DNA PCR NOT DETECTED Nasal C.pneumoniae (PCR) NOT DETECTED [place] Human Metapneumo PCR NOT DETECTED Nasal M.pneumoniae (PCR) NOT DETECTED Nasal SARS-CoV-2 (PCR) NOT DETECTED - Rads (name of study) cxr Radiology: Final report received, EMP read contemporaneously, See rad report (Bilateral interstitial type infiltrates are seen. Please consider COVID pneumonia. Differential diagnosis includes pulmonary edema. ) PD MEDICAL DECISION MAKING - ED course Complexity details: reviewed results, re-evaluated patient, considered differential, d/w patient ED course: Covid test is negative, but he is positive for parainfluenza. Given his history of smoking and potential COPD, we will place on antibiotics. The patient feels much better after nebulizer treatment. Will prescribe an inhaler for home. Will place on steroids as well. Patient is well-appearing, nontoxic. No respiratory distress. No hypoxia. Patient counseled regarding signs and symptoms for which I believe and urgent re-evaluation would be necessary. Patient with good understanding of and agreement to plan and is comfortable going home at this time This document was made in part using voice recognition software. While efforts are made to proofread this document, sound alike and grammatical errors may occur. Departure - Departure Disposition: 01 Home, Self Care Clinical Impression: Parainfluenza Condition: Good Instructions: ED Viral Syndrome Follow-Up: Jefferson Anderson MD [Primary Care Provider] - Within 1 week Prescriptions: Albuterol Sulf [Ventolin Hfa Inhaler] 1 - 2 puffs INH Q4HR PRN #1 inhaler PRN Reason: Shortness Of Air/Wheezing predniSONE [Deltasone] 10 mg PO [id number] #42 tab Doxycycline Hyclate 100 mg PO BID #20 tab Benzonatate [Tessalon] 200 mg PO TID PRN #30 cap PRN Reason: Cough Azithromycin [Zithromax] 250 mg PO DAILY #4 tablet Comments: Your prescriptions were sent to [facility] in [place]. Please follow-up with your doctor for further care. You have tested positive for parainfluenza today. You may have an early pneumonia on chest x-ray as well. Your Covid test is negative. Discharge Date/Time: 03/09/21 17:58
--- NOTE | 2021-03-09 16:13 | XRAY Report ---
PROCEDURE: Chest 1 View X-Ray INDICATIONS: chest pain TECHNIQUE: One view of the chest was acquired. COMPARISON: 08/30/2018 FINDINGS: Surgical changes and devices: None. Lungs and pleura: On the semiupright images, no large pneumothorax or large pleural effusions can be seen. No focal infiltrates are seen. Bilateral patchy interstitial prominence can be seen. Mediastinum: The aorta is prominent and tortuous. Heart size is normal. Bones and chest wall: No suspicious bony lesions. Age-appropriate degenerative changes are seen. Overlying soft tissues appear unremarkable. IMPRESSION: Bilateral interstitial type infiltrates are seen. Please consider COVID pneumonia. Differential diag nosis includes pulmonary edema. Please consider a short-term follow-up 2 view chest series (performed in deep [facility]) for furthe r evaluation. Reviewed by: Raghav Latif MD on 03/09/2021 3:12 PM [facility] Approved by: Raghav Latif MD on 03/09/2021 3:12 PM [facility] Station ID: [id number]
[2021-03-09 16:53] LABS: B. PARAPERTUSSIS- RESP PCR PAN NOT DETECTED; B. PERTUSSIS- RESP PCR PANEL NOT DETECTED; C. PNEUMONIAE- RESP PCR PANEL NOT DETECTED; CORONAVIRUS 229E-RESP PCR NOT DETECTED; CORONAVIRUS HKU1-RESP PCR NOT DETECTED; CORONAVIRUS NL63-RESP PCR NOT DETECTED; CORONAVIRUS OC43-RESP PCR NOT DETECTED; HUMAN METAPNEUMOVIRUS NOT DETECTED; INFLUENZA A- RESP PCR PANEL NOT DETECTED; INFLUENZA B - RESP PCR PANEL NOT DETECTED; M. PNEUMONIAE- RESP PCR PANEL NOT DETECTED; PARAINFLUENZA VIRUS 1 NOT DETECTED; PARAINFLUENZA VIRUS 2 NOT DETECTED; PARAINFLUENZA VIRUS 3 DETECTED; PARAINFLUENZA VIRUS 4 NOT DETECTED; RHINOVIRUS/ENTEROVIRUS NOT DETECTED; RSV- RESP PCR PANEL NOT DETECTED; SARS-CoV-2 -RESP PCR PANEL NOT DETECTED
[2021-03-09] MEDS ORDERED: DOXYCYCLINE 100 MG TABLET PO STA (16:56)
[2021-03-09] MEDS ORDERED: AZITHROMYCIN 250 MG TABLET PO STA (16:56)
[2021-03-09 17:36] VITALS: BP 119/109
== END 2021-03-09 17:58 | disposition home or self-care (01) ==
LOC: ED 14:57
DX: B34.8 Other viral infections of unspecified site (principal); Z20.822 Contact with and (suspected) exposure to COVID-19; J45.909 Unspecified asthma, uncomplicated; F17.210 Nicotine dependence, cigarettes, uncomplicated; I10 Essential (primary) hypertension; Z79.82 Long term (current) use of aspirin
CPT/HCPCS: 71045; 87631; 94640; 94664; 99284; A9270; J7512; 0202U

== ENCOUNTER 2021-05-16 10:29 | Outpatient (CLI) | payer MEDICARE, MEDICAID | END 2021-05-16 23:59 | disposition home or self-care (01) | LOC: LAB.N 10:29 | PROVIDERS: ATTEND Nurse Practitioner | DX: R05.1 Acute cough (principal); Z20.822 Contact with and (suspected) exposure to COVID-19 ==

== ENCOUNTER 2021-05-16 11:26 | Outpatient (CLI) | payer MEDICARE, MEDICAID ==
--- NOTE | 2021-05-23 00:21 | XRAY Report ---
PROCEDURE: Chest 2 View X-Ray INDICATIONS: ACUTE UPPER RESPIRATORY INFECTION, UNSPECIFIED TECHNIQUE: 2 view(s) of the chest. Images became available for interpretation on 05/22/2021. COMPARISON: Chest x-ray 03/09/2021 FINDINGS: Surgical changes and devices: None. Lungs and pleura: No pleural effusions or pneumothorax. Lungs are clear. Mediastinum: Mediastinal contours are normal. Heart size is normal. Bones and chest wall: No suspicious bony abnormalities. Soft tissues appear unremarkable. IMPRESSION: No acute pulmonary process. Reviewed by: Loni Calderon MD on 05/23/2021 12:20 AM PDT Approved by: Loni Calderon MD on 05/23/2021 12:20 AM PDT Station ID: [id number]
== END 2021-05-16 23:59 | disposition home or self-care (01) ==
LOC: DI.N 11:26
PROVIDERS: ATTEND Nurse Practitioner
DX: J06.9 Acute upper respiratory infection, unspecified (principal); R05.1 Acute cough; Z20.822 Contact with and (suspected) exposure to COVID-19
CPT/HCPCS: 71046; U0004

== ENCOUNTER 2021-08-05 08:00 | Outpatient (CLI) | payer MEDICARE, MEDICAID ==
[2021-08-05 11:34] LABS: BASOPHILS # (AUTO) 0.1 10^3/uL (0.0-0.1); BASOPHILS % (AUTO) 0.7 %; EOSINOPHILS # (AUTO) 0.1 10^3/uL (0.0-0.7); HCT - HEMATOCRIT 46.4 % (42.0-52.0); HGB - HEMOGLOBIN 15.8 g/dL (14.0-18.0); LYMPHOCYTES # (AUTO) 3.3 10^3/uL (1.5-3.5); LYMPHOCYTES % (AUTO) 47.5 %; MEAN CORPUSCULAR HEMOGLOBIN 31.2 pg (27.0-31.0); MEAN CORPUSCULAR HGB CONC 34.1 g/dL (32.0-36.0); MEAN CORPUSCULAR VOLUME 91.5 fL (80.0-94.0); MEAN PLATELET VOLUME 11.7 fL (7.4-11.4); MONOCYTES # (AUTO) 0.7 10^3/uL (0.0-1.0); MONOCYTES % (AUTO) 10.4 %; NEUTROPHILS # (AUTO) 2.7 10^3/uL (1.5-6.6); NEUTROPHILS % (AUTO) 38.8 %; PLT - PLATELET COUNT 193 10^3/uL (130-450); RED BLOOD COUNT 5.07 10^6/uL (4.70-6.10); RED CELL DISTRIBUTION WIDTH 13.2 % (12.0-15.0)
[2021-08-05 12:10] LABS: THYROID STIMULATING HORMONE 2.72 uIU/mL (0.34-5.60)
[2021-08-05 12:23] LABS: ALBUMIN 4.3 g/dL (3.2-5.5); ALBUMIN/GLOBULIN RATIO 1.1 (1.0-2.2); BILIRUBIN,TOTAL 0.3 mg/dL (0.2-1.0); CALCIUM 9.6 mg/dL (8.5-10.3); CREATININE 0.7 mg/dL (0.6-1.2); PHENYTOIN (DILANTIN) 9.1 ug/mL; POTASSIUM 4.5 mmol/L (3.5-5.0); TOTAL PROTEIN 8.1 g/dL (6.7-8.2)
[2021-08-05 12:26] LABS: ESTIMATED AVERAGE GLUCOSE 131 mg/dL (70-100); HEMOGLOBIN A1c% 6.2 % (4.27-6.07)
== END 2021-08-05 23:59 ==
LOC: LAB.WCP 08:00
PROVIDERS: ATTEND Family Medicine
DX: R73.03 Prediabetes (principal); Z72.0 Tobacco use; I10 Essential (primary) hypertension; F29 Unspecified psychosis not due to a substance or known physiological condition; F41.9 Anxiety disorder, unspecified; F32.A Depression, unspecified; G40.909 Epilepsy, unspecified, not intractable, without status epilepticus
CPT/HCPCS: 36415; 80053; 80185; 83036; 84443; 85025

== ENCOUNTER 2021-08-14 09:37 | Emergency (ER) | payer MEDICARE, MEDICAID ==
[2021-08-14 10:32] LABS: BASOPHILS % (AUTO) 0.4 %; EOSINOPHILS # (AUTO) 0.1 10^3/uL (0.0-0.7); HCT - HEMATOCRIT 46.1 % (42.0-52.0); HGB - HEMOGLOBIN 15.8 g/dL (14.0-18.0); LYMPHOCYTES # (AUTO) 3.3 10^3/uL (1.5-3.5); LYMPHOCYTES % (AUTO) 45.9 %; MEAN CORPUSCULAR HEMOGLOBIN 31.3 pg (27.0-31.0); MEAN CORPUSCULAR HGB CONC 34.3 g/dL (32.0-36.0); MEAN CORPUSCULAR VOLUME 91.5 fL (80.0-94.0); MEAN PLATELET VOLUME 11.2 fL (7.4-11.4); MONOCYTES # (AUTO) 0.6 10^3/uL (0.0-1.0); MONOCYTES % (AUTO) 7.6 %; NEUTROPHILS # (AUTO) 3.3 10^3/uL (1.5-6.6); NEUTROPHILS % (AUTO) 44.7 %; PLT - PLATELET COUNT 204 10^3/uL (130-450); RED BLOOD COUNT 5.04 10^6/uL (4.70-6.10); RED CELL DISTRIBUTION WIDTH 13.5 % (12.0-15.0); WHITE BLOOD COUNT 7.3 x10^3/uL (4.8-10.8)
--- NOTE | 2021-08-14 10:39 | XRAY Report ---
PROCEDURE: Chest 1 View X-Ray INDICATIONS: Chest pain TECHNIQUE: One view of the chest was acquired. COMPARISON: 05/16/2021 and 03/09/2021 FINDINGS: Surgical changes and devices: None. Lungs and pleura: No pleural effusions or pneumothorax. Lungs are clear. Mediastinum: Mediastinal contours appear normal. Heart size is normal. Bones and chest wall: No suspicious bony lesions. Overlying soft tissues appear unremarkable. IMPRESSION: No acute cardiopulmonary pathology. Reviewed by: Dave Harrell MD on 08/14/2021 10:38 AM [facility] Approved by: Dave Harrell MD on 08/14/2021 10:38 AM [facility] Station ID: [id number]
[2021-08-14 10:42] LABS: ALBUMIN 4.1 g/dL (3.2-5.5); ALBUMIN/GLOBULIN RATIO 1.1 (1.0-2.2); BILIRUBIN,TOTAL 0.6 mg/dL (0.2-1.0); CALCIUM 9.4 mg/dL (8.5-10.3); CREATININE 0.8 mg/dL (0.6-1.2); POTASSIUM 3.6 mmol/L (3.5-5.0); TOTAL PROTEIN 7.8 g/dL (6.7-8.2)
--- NOTE | 2021-08-14 11:07 | ED Physician Documentation ---
History of Present Illness - Stated complaint Stated Complaint: LOW PULSE RATE - Chief complaint Chief Complaint: Cardiac - History obtained from History obtained from: Patient - Additonal information Additional information: The patient comes to the emergency department chief complaint of "slow heartbeat" (per caregiver--pt denies complaints). Caregiver states that pt was at the doctor's office a few days ago, and found to have a HR in the 40's. Pt has seemed a little lower energy lately, but otherwise, has been without complaints. The doctor told caregiver to do regular pulse checks to see how pt's HR was doing, then check back. Per caregiver, PCP was concerned that a couple of the pt's meds might be to blame. HR has been persistently in the 40's, and caregiver states that she was told by the nurse at PCP's office to bring the pt in. Pt denies complaints--no CP, SOB, or palpitations. No fatigue. No known cardiac issues per caregiver. Review of Systems Ten Systems: 10 systems reviewed and negative Constitutional: reports: Reviewed and negative Eyes: reports: Reviewed and negative Ears: reports: Reviewed and negative Nose: reports: Reviewed and negative Throat: reports: Reviewed and negative Cardiac: reports: Reviewed and negative Respiratory: reports: Reviewed and negative GI: reports: Reviewed and negative : reports: Reviewed and negative Skin: reports: Reviewed and negative Musculoskeletal: reports: Reviewed and negative Neurologic: reports: Reviewed and negative Psychiatric: reports: Reviewed and negative Endocrine: reports: Reviewed and negative Immunocompromised: reports: Reviewed and negative PD PAST MEDICAL HISTORY - Past Medical History Cardiovascular: Hypertension, Other Respiratory: Asthma, Pneumonia Neuro: Seizure disorder Endocrine/Autoimmune: Other HEENT: Chronic vision loss Psych: Depression, Anxiety, Bipolar disorder, Schizophrenia Musculoskeletal: Osteoarthritis - Past Surgical History Past Surgical History: Yes General: Colonoscopy Ortho: Hip replacement HEENT: Cataracts - Present Medications Home Medications: Ambulatory Orders Medication Instructions Recorded Confirmed Amlodipine Besylate 10 mg PO 0600 02/21/14 08/14/21 FLUoxetine [PROzac] 20 mg PO 0600 02/21/14 08/14/21 OLANZapine [ZyPREXA] 15 mg PO 1800 02/21/14 08/14/21 atenoloL [Atenolol] 25 mg PO 1800 02/21/14 08/14/21 Guaifenesin [Mucinex] 600 mg PO BID PRN 05/22/16 08/14/21 Loperamide [Imodium] 2 mg PO QID PRN 05/22/16 08/14/21 Multivitamin [Multiple Vitamins] 1 tab PO 1800 05/22/16 08/14/21 Tamsulosin [Flomax] 0.4 mg PO 0600 05/22/16 08/14/21 Loratadine [Claritin] 10 mg PO DAILY PRN 06/04/16 08/14/21 Acetaminophen 1 tab PO BID PRN 07/08/16 08/14/21 Aspirin [Aspir-Low] 81 mg PO DAILY 07/08/16 08/14/21 Phenytoin [Dilantin] 100 mg PO 1800 07/08/16 08/14/21 polyethylene glycoL 3350 [Miralax] 17 gm PO DAILY PRN 07/08/16 08/14/21 Phenytoin [Dilantin] 200 mg PO 0600 08/06/16 08/14/21 Levetiracetam [Keppra] 1,000 mg ORAL BID 08/30/18 08/14/21 Albuterol Sulf [Ventolin Hfa 1 - 2 puffs INH Q4HR PRN #1 inhaler 03/09/21 08/14/21 Inhaler] Benzonatate [Tessalon] 200 mg PO TID PRN #30 cap 03/09/21 08/14/21 Magnesium Hydroxide [Milk of 60 ml PO DAILY PRN 08/14/21 08/14/21 Magnesia] oxyCODONE/ACET 5/325 [Percocet 5 1 tab PO Q4HR PRN 08/14/21 08/14/21 mg/325 mg] - Allergies Allergies/Adverse Reactions: Allergies Allergy/AdvReac Type Severity Reaction Status Date / Time No Known Drug Allergies Allergy Verified 08/14/21 10:00 - Social History Does the pt smoke?: Yes Smoking Status: Current every day smoker Does the pt drink ETOH?: No Does the pt have substance abuse?: No - Immunizations Immunizations are current?: Yes - POLST Patient has POLST: No PD ED PE NORMAL - Vitals Vital signs reviewed: Yes - General General: No acute distress, Well developed/nourished, Other (alert) - HEENT HEENT: Atraumatic, PERRL, EOMI, Moist mucous membranes - Neck Neck: Supple, no meningeal sign - Cardiac Cardiac: No murmur, Strong equal pulses, Other (regular rate, bradycardic) - Respiratory Respiratory: No respiratory distress, Clear bilaterally - Abdomen Abdomen: Soft, Non tender, Non distended - Derm Derm: Normal color, Warm and dry, No rash - Extremities Extremities: No deformity, No edema - Neuro Neuro: Other (Alert, conversant, no gross deficits) - Psych Psych: Normal mood, Normal affect Results - Vitals Vitals: Vital Signs - 24 hr 08/14/21 08/14/21 08/14/21 09:51 11:59 13:00 Temperature 36.6 C 36.4 C L 36.7 C Heart Rate 90 91 46 L Respiratory 28 H 24 15 Rate Blood Pressure 137/92 H 144/78 H O2 Saturation 100 97 98 Oxygen O2 Source [With Activity] Room air O2 Source [Without Activity] Room air O2 Source Room air - EKG (time done) 0952 Rate: Rate (enter#) (89) Rhythm: Other (sinus rhythm with ventricular bigeminy) Staples: Normal Intervals: Normal IN QRS: Normal Ischemia: Normal ST segments Compare to prior EKG: Old EKG unavailable - Labs Labs: Laboratory Tests 08/14/21 08/14/21 08/14/21 09:54 09:54 09:54 WBC 7.3 RBC 5.04 Hgb 15.8 Hct 46.1 MCV 91.5 MCH 31.3 H MCHC 34.3 RDW 13.5 Plt Count 204 MPV 11.2 Neut # (Auto) 3.3 Lymph # (Auto) 3.3 [place] # (Auto) 0.6 Eos # (Auto) 0.1 Baso # (Auto) 0.0 Absolute Nucleated RBC 0.00 Nucleated RBC % 0.0 Sodium 138 Potassium 3.6 Chloride 103 Carbon Dioxide 25 Anion Gap 10.0 BUN 11 Creatinine 0.8 Estimated GFR (MDRD) 118 Glucose 125 H Calcium 9.4 Total Bilirubin 0.6 AST 21 ALT 15 Alkaline Phosphatase 132 H Troponin I High Sens 9.8 Total Protein 7.8 Albumin 4.1 Globulin 3.7 Albumin/Globulin Ratio 1.1 Lipase 24 PD MEDICAL DECISION MAKING - ED course Complexity details: reviewed results, considered differential, d/w patient, other (d/w caregiver) ED course: Pt was worked up with labs, which were unremarkable. EKG showed ventricular bigeminy, and exam revealed a pulse of mid-40's (sinus beats). I reviewed the pt's meds, and found pt is on atenolol. I discussed the case with Dr Mitchell, who is cardiology-trained, and she recommended holding the pt's atenolol, with close follow-up with pt's PCP. Pt has been stable in the ED, and has had a stable HR over days' time. Plans have been relayed to the caregiver. We have discussed the usual indications for return. Departure - Departure Disposition: 01 Home, Self Care Clinical Impression: Bradycardia Condition: Stable Instructions: ED Bradycardia Comments: Your labs look good. Your heart rate is not dangerously low at this time. There are a number of possible reasons for your low heart rate, or "bradycardia", but a good starting place would be to evaluate your medications. You are on at least one medication that could be slowing your heart rate down, which is your atenolol. At this point in time, you should see your primary care physician as soon as possible to discuss a medication regimen that will not cause your heart rate to slow down. In the meantime, you should stop taking the atenolol. Your case has been discussed with our hospitalist, Dr. Mitchell who is cardiology trained, and she has recommended this as well. Please see your primary care physician soon as possible to discuss a good replacement, as well as to discuss whether you should have a cardiology visit. Discharge Date/Time: 08/14/21 13:00
[2021-08-14 13:08] VITALS: BP 144/78
== END 2021-08-14 13:00 | disposition home or self-care (01) ==
LOC: ED 09:37
DX: R00.1 Bradycardia, unspecified (principal); I10 Essential (primary) hypertension; F17.200 Nicotine dependence, unspecified, uncomplicated
CPT/HCPCS: 36415; 80053; 83690; 84484; 85025; 93005; 99282; 99284

== ENCOUNTER 2021-11-05 07:58 | Outpatient (CLI) | payer MEDICARE, MEDICAID ==
[2021-11-05 12:02] LABS: BASOPHILS # (AUTO) 0.1 10^3/uL (0.0-0.1); BASOPHILS % (AUTO) 0.6 %; EOSINOPHILS # (AUTO) 0.2 10^3/uL (0.0-0.7); EOSINOPHILS % (AUTO) 2.5 %; HCT - HEMATOCRIT 46.6 % (42.0-52.0); HGB - HEMOGLOBIN 15.9 g/dL (14.0-18.0); LYMPHOCYTES # (AUTO) 3.2 10^3/uL (1.5-3.5); LYMPHOCYTES % (AUTO) 40.2 %; MEAN CORPUSCULAR HEMOGLOBIN 31.7 pg (27.0-31.0); MEAN CORPUSCULAR HGB CONC 34.1 g/dL (32.0-36.0); MEAN PLATELET VOLUME 11.8 fL (7.4-11.4); MONOCYTES # (AUTO) 0.7 10^3/uL (0.0-1.0); MONOCYTES % (AUTO) 8.8 %; NEUTROPHILS # (AUTO) 3.8 10^3/uL (1.5-6.6); NEUTROPHILS % (AUTO) 47.5 %; PLT - PLATELET COUNT 224 10^3/uL (130-450); RED BLOOD COUNT 5.01 10^6/uL (4.70-6.10); RED CELL DISTRIBUTION WIDTH 13.4 % (12.0-15.0)
[2021-11-05 12:20] LABS: ALBUMIN 3.9 g/dL (3.2-5.5); ALKALINE PHOSPHATASE 141 IU/L (42-121); ALT ALANINE AMINOTRANSFERASE 15 IU/L (10-60); AST ASPARTATE AMINOTRANSFERASE 20 IU/L (10-42); BILIRUBIN,TOTAL 0.5 mg/dL (0.2-1.0); BUN - BLOOD UREA NITROGEN 10 mg/dL (6-20); CALCIUM 9.5 mg/dL (8.5-10.3); CARBON DIOXIDE - CO2 25 mmol/L (21-32); CHLORIDE 103 mmol/L (101-111); CHOL/HDL RATIO 3.4 (<5.0); CHOLESTEROL 172 mg/dL; CREATININE 0.8 mg/dL (0.6-1.2); GFR - MDRD 118 (>89); GLUCOSE 114 mg/dL (70-100); HDL CHOLESTEROL 50 mg/dL; LDL CHOLESTEROL,CALCULATED 96 mg/dL; LDL/HDL RATIO 1.9 (<3.6); SODIUM 137 mmol/L (135-145); TOTAL PROTEIN 7.8 g/dL (6.7-8.2); TRIGLYCERIDES 129 mg/dL; VLDL CHOLESTEROL 26 mg/dL
[2021-11-05 12:24] LABS: THYROID STIMULATING HORMONE 2.47 uIU/mL (0.34-5.60)
== END 2021-11-05 07:59 | disposition home or self-care (01) ==
LOC: LAB.N 07:58
PROVIDERS: ATTEND Family Medicine
DX: I10 Essential (primary) hypertension (principal); J44.9 Chronic obstructive pulmonary disease, unspecified; R73.03 Prediabetes; N40.1 Benign prostatic hyperplasia with lower urinary tract symptoms; N13.8 Other obstructive and reflux uropathy; M16.12 Unilateral primary osteoarthritis, left hip; F09 Unspecified mental disorder due to known physiological condition; F41.9 Anxiety disorder, unspecified; F32.A Depression, unspecified; G40.909 Epilepsy, unspecified, not intractable, without status epilepticus; E78.5 Hyperlipidemia, unspecified; Z72.0 Tobacco use
CPT/HCPCS: 36415; 80053; 80061; 81599; 83036; 83721; 84443; 85025

== ENCOUNTER 2022-01-01 11:23 | Outpatient (CLI) | payer MEDICARE, MEDICAID ==
[2022-01-01 12:22] VITALS: BP 140/86
--- NOTE | 2022-01-01 12:22 | SLEEP CARE CONSULTATION ---
Information from patient questionnaire entered by Marquise Howard MA. I have reviewed and concur with the information entered by Marquise Howard MA. This document represents the service I personally performed and the decisions made by , Courtney Blackburn ARNP. History of Present Illness Service Date and Time: 01/01/2022 1123 Reason for Visit: New patient (ONSET 07/2020, NO PRIORS,) Accompanied by: Caregiver Chief Complaint: reports: Snoring, Excessive daytime sleepiness, Observed pauses in breathing, Frequent awakenings at night Date of Onset: 6 months or so Usual bedtime: 800 - 900 PM Time it takes to fall asleep: 20-30 minutes Snores at night: Yes Observed to quit breathing while asleep: Yes Sleeps alone due to snoring: No Number of times waking at night: 3-4 Reasons for waking at night: reports: Snoring, Bathroom. denies: Choking, Gasping for air Toss, Turn, or Twitch while sleeping: Yes Recalls having dreams: Yes Usually gets out of bed at: [id number] Feels refreshed in the morning: No Morning headache: No Sleepy or fatigued during the day: Yes Ever fallen asleep while driving: No (doesn't drive) Takes day naps: Yes (daily naps) Prior sleep studies: No Additional HPI information: I had the pleasure of seeing JUAN R MEDINA today regarding the possibility of him having a sleep disorder. His current complaints are observed pauses in breathing, frequent night awakenings and excessive daytime sleepiness. He is accompanied by his caregiver Jael. Patient is partially blind. He gets very short of breath with activity according to his caregiver. He also states he will wake up feeling short of breath and also very confused at times. - Parasomnia Symptoms Ever been unable to move upon waking from sleep: No Walks in sleep: No Talks in sleep: Yes (talking and laughing is becoming more often lately) Ever acted out dreams in sleep: No Ever felt weak in the knees when startled or emotional: No Bothered by creepy, crawly, restless sensations in legs: No Problems with memory or concentration: Yes (both) Subjective Initial [place] Sleepiness Scale score: 6 (01/01/22) Past Medical History Past Medical History: reports: Hypertension, Arrythmia, Depression, Other (Epilepsy; schizophrenia) Social History The patient's occupation is a RE. Patient is Single and lives in . Have you smoked in the past 12 months: Yes Cigarettes per day (20/pack): 20 Alcohol use: No Caffeine use: Yes Caffeine amount and frequency: 2 X DAILY Family History Family history of sleep disordered breathing: No Allergies and Home Medications Known drug allergies: No Drug allergies reviewed: Yes (NKDA) Home medication list reviewed: Yes Allergy and home medication list: Allergies No Known Drug Allergies Allergy (Verified 08/14/21 10:00) Medications: Fluoxetine HCL 20 mg daily Tamsulosin HCL 0.4 mg daily Phenytoin Sod Ext 100 mg, 2 cap daily Amlodipine Besylate 10 mg daily Levetiracetam 1000 mg, bid Olanzapine 15 mg daily Metoprolol 25 mg daily as long as HR above 50 bpm MVT daily Phenytoin Sod Ext 100 mg in pm Aspirin 81 mg daily Systane Ultra, prn Benzonalate 100 mg , prn MAPAP 500 mg, prn Albuterol inhaler, prn Saline nasal spray, prn Bacitracin ointment, prn Review of Systems Cardiovascular: reports: high blood pressure, palpitations, irregular heart rate or pulse Respiratory: reports: shortness of breath, wheeze, chronic cough Urinary: reports: frequency, urgency Neurological: reports: seizure, gait or balance problems Psychiatric: reports: depression, mood disorder Ear/Nose/Throat: denies: tonsillectomy Physical Exam Vital signs obtained and entered by: Juan R HOWARD CMA MAY Blood Pressure: 140/86 (RESP 16, PULSE 40, RIGHT, ) Heart Rate: 39 O2 Saturation: 96 (CLOTH MASK) Height: 5 ft 11 in Weight: 235 lb Body Mass Index: 32.8 BMI Classification: Obese Neck circumference: 18 (INCHES) Mouth and throat: narrow oropharynx Soft palate: long Hard palate: arched Uvula: normal Uvula visualization: 25% Mallampati Class III Tongue: normal in size Tonsils: 1+ Neck: normal w/o lymphadenopathy or thyromegaly Heart: irregular rhythm Lungs: clear bilaterally Impression and Plan 1. Suspected Obstructive Sleep Apnea-Hypopnea Syndrome, as suggested by a history of loud and irregular snoring, observed cessation of breath while asleep, frequent awakening during the night, unrefreshed sleep, cognitive impairment, and excessive daytime sleepiness. I recommend proceeding to polysomnography to confirm the diagnosis and to assess severity. Patient needs a caregiver with him during the night. He has someone who can accompany him the night of the sleep study. If the patient has significant sleep disordered breathing, a manual CPAP titration study will also be performed to find the optimal treatment pressure. I informed the patient of what the sleep studies involve and after some discussion, obtained agreement to proceed. The pathophysiology of obstructive sleep apnea-hypopnea syndrome was discussed with the patient and health risks of cardiovascular and cerebrovascular disease if not treated. Risks of drowsy driving discussed in detail and patient advised to avoid long distance driving and to socket puller at the first sign of drowsiness. Patient agreed to plan. * Schedule polysomnography * Patient to be accompanied by caregiver as he is partially blind and needs assistance during night * Avoid long distance driving or driving when feeling sleepy. * Avoid sedative and muscle relaxant around bedtime. * Attempt to lose weight. * Review instructions provided by trained office staff on how to prepare for the sleep study. * Return for follow-up after sleep study completed. Counseling Topics: Spare mask, Weight loss health impact Visit Type: In Office Other Participants: Caregiver (Jael) Time Spent with Patient (minutes): 34 Provider Statement: I spent 100% of the Face to Face Visit with the patient with greater than 50% spent counseling the patient and coordination of care.
== END 2022-01-01 11:24 | disposition home or self-care (01) ==
LOC: SC 11:23
PROVIDERS: ATTEND Nurse Practitioner Family
DX: G47.10 Hypersomnia, unspecified (principal); R53.83 Other fatigue; G47.8 Other sleep disorders; I49.9 Cardiac arrhythmia, unspecified; R06.83 Snoring; R06.81 Apnea, not elsewhere classified; F32.A Depression, unspecified; F17.210 Nicotine dependence, cigarettes, uncomplicated; E66.9 Obesity, unspecified; Z68.32 Body mass index [BMI] 32.0-32.9, adult
CPT/HCPCS: 99203; G0463; 99212

== ENCOUNTER 2022-02-10 09:56 | Outpatient (CLI) | payer MEDICARE, MEDICAID ==
[2022-02-10 12:01] LABS: BASOPHILS % (AUTO) 0.6 %; EOSINOPHILS # (AUTO) 0.1 10^3/uL (0.0-0.7); HCT - HEMATOCRIT 45.2 % (42.0-52.0); HGB - HEMOGLOBIN 15.6 g/dL (14.0-18.0); LYMPHOCYTES # (AUTO) 2.8 10^3/uL (1.5-3.5); LYMPHOCYTES % (AUTO) 40.7 %; MEAN CORPUSCULAR HEMOGLOBIN 31.6 pg (27.0-31.0); MEAN CORPUSCULAR HGB CONC 34.5 g/dL (32.0-36.0); MEAN CORPUSCULAR VOLUME 91.5 fL (80.0-94.0); MEAN PLATELET VOLUME 11.4 fL (7.4-11.4); MONOCYTES # (AUTO) 0.5 10^3/uL (0.0-1.0); MONOCYTES % (AUTO) 7.5 %; NEUTROPHILS # (AUTO) 3.5 10^3/uL (1.5-6.6); NEUTROPHILS % (AUTO) 49.8 %; PLT - PLATELET COUNT 220 10^3/uL (130-450); RED BLOOD COUNT 4.94 10^6/uL (4.70-6.10); RED CELL DISTRIBUTION WIDTH 13.3 % (12.0-15.0)
[2022-02-10 12:24] LABS: CALCIUM 10.2 mg/dL (8.5-10.3); CREATININE 0.9 mg/dL (0.6-1.2); POTASSIUM 3.8 mmol/L (3.5-5.0)
[2022-02-10 12:33] LABS: THYROID STIMULATING HORMONE 2.37 uIU/mL (0.34-5.60)
[2022-02-10 15:29] LABS: ESTIMATED AVERAGE GLUCOSE 131 mg/dL (70-100); HEMOGLOBIN A1c% 6.2 % (4.27-6.07)
== END 2022-02-10 09:57 | disposition home or self-care (01) ==
LOC: LAB.N 09:56
PROVIDERS: ATTEND Family Medicine
DX: R73.9 Hyperglycemia, unspecified (principal); F29 Unspecified psychosis not due to a substance or known physiological condition; G40.909 Epilepsy, unspecified, not intractable, without status epilepticus; Z72.0 Tobacco use
CPT/HCPCS: 36415; 80048; 80175; 80185; 83036; 84443; 85025

== ENCOUNTER 2022-05-06 11:15 | Outpatient (CLI) | payer MEDICARE, MEDICAID ==
[2022-05-06 18:10] LABS: BASOPHILS # (AUTO) 0.1 10^3/uL (0.0-0.1); BASOPHILS % (AUTO) 0.6 %; EOSINOPHILS # (AUTO) 0.1 10^3/uL (0.0-0.7); EOSINOPHILS % (AUTO) 1.6 %; HCT - HEMATOCRIT 44.6 % (42.0-52.0); LYMPHOCYTES # (AUTO) 3.6 10^3/uL (1.5-3.5); LYMPHOCYTES % (AUTO) 44.5 %; MEAN CORPUSCULAR HEMOGLOBIN 31.1 pg (27.0-31.0); MEAN CORPUSCULAR HGB CONC 33.6 g/dL (32.0-36.0); MEAN CORPUSCULAR VOLUME 92.5 fL (80.0-94.0); MEAN PLATELET VOLUME 10.7 fL (7.4-11.4); MONOCYTES # (AUTO) 0.8 10^3/uL (0.0-1.0); MONOCYTES % (AUTO) 9.2 %; NEUTROPHILS # (AUTO) 3.5 10^3/uL (1.5-6.6); NEUTROPHILS % (AUTO) 43.5 %; PLT - PLATELET COUNT 239 10^3/uL (130-450); RED BLOOD COUNT 4.82 10^6/uL (4.70-6.10); RED CELL DISTRIBUTION WIDTH 13.4 % (12.0-15.0); WHITE BLOOD COUNT 8.1 x10^3/uL (4.8-10.8)
[2022-05-06 18:32] LABS: ALBUMIN 4.1 g/dL (3.2-5.5); ALBUMIN/GLOBULIN RATIO 1.1 (1.0-2.2); BILIRUBIN,TOTAL 0.6 mg/dL (0.2-1.0); CALCIUM 9.5 mg/dL (8.5-10.3); CREATININE 0.7 mg/dL (0.6-1.2); POTASSIUM 4.2 mmol/L (3.5-5.0)
[2022-05-06 18:42] LABS: THYROID STIMULATING HORMONE 2.19 uIU/mL (0.34-5.60)
[2022-05-06 22:28] LABS: ESTIMATED AVERAGE GLUCOSE 128 mg/dL (70-100); HEMOGLOBIN A1c% 6.1 % (4.27-6.07)
== END 2022-05-06 11:16 | disposition home or self-care (01) ==
LOC: LAB.N 11:15
PROVIDERS: ATTEND Family Medicine
DX: I10 Essential (primary) hypertension (principal); I49.9 Cardiac arrhythmia, unspecified; I49.5 Sick sinus syndrome; R73.03 Prediabetes; R73.9 Hyperglycemia, unspecified; R62.50 Unspecified lack of expected normal physiological development in childhood; F29 Unspecified psychosis not due to a substance or known physiological condition; I40.9 Acute myocarditis, unspecified; F41.9 Anxiety disorder, unspecified; F32.A Depression, unspecified; G40.909 Epilepsy, unspecified, not intractable, without status epilepticus
CPT/HCPCS: 36415; 80053; 83036; 84443; 85025

== ENCOUNTER 2022-09-04 12:11 | Outpatient (CLI) | payer MEDICARE, MEDICAID ==
--- NOTE | 2022-09-04 17:23 | XRAY Report ---
PROCEDURE: Shoulder 3 View LT INDICATIONS: SHOULDER PAIN LEFT TECHNIQUE: 3 views of the shoulder were acquired. COMPARISON: None. FINDINGS: Bones: No fractures or dislocations . Moderate acromioclavicular joint and glenohumeral joint osteoa rthritic changes are seen. No suspicious bony lesions. Visualized ribs appear intact. Soft tissues: No suspicious soft tissue calcifications. IMPRESSION: Moderate left shoulder joint osteoarthritis. No shoulder fracture or dislocation. No jacinto ss soft tissue abnormalities. Reviewed by: Dave Harrell MD on 09/04/2022 5:22 PM PST Approved by: Dave Harrell MD on 09/04/2022 5:22 PM PST Station ID: [id number]
== END 2022-09-04 12:12 | disposition home or self-care (01) ==
LOC: DI 12:11
PROVIDERS: ATTEND Family Medicine
DX: M19.012 Primary osteoarthritis, left shoulder (principal)

== ENCOUNTER 2023-10-30 09:41 | Outpatient (CLI) | payer MEDICARE, MEDICAID ==
[2023-10-30 12:24] LABS: BASOPHILS # (AUTO) 0.1 10^3/uL (0.0-0.1); BASOPHILS % (AUTO) 0.8 %; EOSINOPHILS # (AUTO) 0.1 10^3/uL (0.0-0.7); EOSINOPHILS % (AUTO) 1.8 %; HCT - HEMATOCRIT 44.6 % (42.0-52.0); HGB - HEMOGLOBIN 14.7 g/dL (14.0-18.0); LYMPHOCYTES # (AUTO) 3.5 10^3/uL (1.5-3.5); LYMPHOCYTES % (AUTO) 45.9 %; MEAN CORPUSCULAR HEMOGLOBIN 30.5 pg (27.0-31.0); MEAN CORPUSCULAR VOLUME 92.5 fL (80.0-94.0); MEAN PLATELET VOLUME 11.2 fL (7.4-11.4); MONOCYTES # (AUTO) 0.9 10^3/uL (0.0-1.0); MONOCYTES % (AUTO) 11.7 %; NEUTROPHILS % (AUTO) 39.4 %; PLT - PLATELET COUNT 226 10^3/uL (130-450); RED BLOOD COUNT 4.82 10^6/uL (4.70-6.10); RED CELL DISTRIBUTION WIDTH 13.4 % (12.0-15.0); WHITE BLOOD COUNT 7.6 x10^3/uL (4.8-10.8)
[2023-10-30 12:39] LABS: ESTIMATED AVERAGE GLUCOSE 117 mg/dL (70-100); HEMOGLOBIN A1c% 5.7 % (4.27-6.07)
[2023-10-30 12:43] LABS: ALBUMIN 4.3 g/dL (3.2-5.5); ALBUMIN/GLOBULIN RATIO 1.2 (1.0-2.2); ALKALINE PHOSPHATASE 164 IU/L (42-121); ALT ALANINE AMINOTRANSFERASE 13 IU/L (10-60); AST ASPARTATE AMINOTRANSFERASE 17 IU/L (10-42); BILIRUBIN,TOTAL 0.4 mg/dL (0.2-1.0); BUN - BLOOD UREA NITROGEN 10 mg/dL (6-20); CALCIUM 10.5 mg/dL (8.5-10.3); CARBON DIOXIDE - CO2 28 mmol/L (21-32); CHLORIDE 105 mmol/L (101-111); CHOL/HDL RATIO 3.8 (<5.0); CHOLESTEROL 192 mg/dL; CREATININE 0.8 mg/dL (0.6-1.3); GFR - MDRD 117 (>89); GLUCOSE 81 mg/dL (74-104); HDL CHOLESTEROL 50 mg/dL; LDL CHOLESTEROL,CALCULATED 106 mg/dL; LDL/HDL RATIO 2.1 (<3.6); PHENYTOIN (DILANTIN) 6.9 ug/mL; POTASSIUM 3.9 mmol/L (3.5-4.5); SODIUM 139 mmol/L (135-145); TOTAL PROTEIN 7.9 g/dL (6.4-8.9); TRIGLYCERIDES 179 mg/dL (48-352); VLDL CHOLESTEROL 36 mg/dL
[2023-10-30 12:56] LABS: THYROID STIMULATING HORMONE 2.87 uIU/mL (0.34-5.60)
== END 2023-10-30 09:42 | disposition home or self-care (01) ==
LOC: LAB.N 09:41
PROVIDERS: ATTEND Family Medicine
DX: R73.03 Prediabetes (principal); I11.0 Hypertensive heart disease with heart failure; I50.20 Unspecified systolic (congestive) heart failure; F17.200 Nicotine dependence, unspecified, uncomplicated; G47.33 Obstructive sleep apnea (adult) (pediatric); G40.909 Epilepsy, unspecified, not intractable, without status epilepticus
CPT/HCPCS: 36415; 80053; 80061; 80185; 83036; 83721; 84443; 85025